=== PATIENT | female | born 1950 | race Caucasian/White ===

== ENCOUNTER 2017-08-20 16:04 | Observation (INO) | payer OTHER ==
--- OUTSIDE RECORDS SUMMARY | 2017-08-20 16:06 | XMS REPORT | Clinical Summary ---
:1950 Author Organization [facility] Address [address] [place] [address] Care Team Providers Name Role Phone Noé Jacobs MD Primary Care Provider Allergies Active Allergy Reactions Severity Noted Date Comments Lisinopril Other (See Comments) 04/24/2016 Kidney failure Current Medications Prescription Sig. Disp. Refills Start Date End Date Status digOXIN (LANOXIN) 125 mcg Take 125 mcg by Active tablet mouth daily. rivaroxaban (XARELTO) 20 Take 20 mg by mouth Active mg tablet daily. carvedilol CR (COREG CR) Take 10 mg by mouth Active 10 MG 24 hr capsule daily. potassium chloride Take 10 mEq by Active (K-DUR,KLOR-CON) 10 MEQ mouth daily. CR tablet cholecalciferol, vitamin Take 50,000 Units Active D3, (VITAMIN D3) 2,000 by mouth once a unit capsule capsule week. allopurinol (ZYLOPRIM) Take 300 mg by Active 300 MG tablet mouth daily. levothyroxine (SYNTHROID, Take 50 mcg by Active LEVOXYL) 50 mcg tablet mouth every morning. pravastatin (PRAVACHOL) Take 40 mg by mouth Active 40 MG tablet daily. citalopram (CeleXA) 40 MG Take 40 mg by mouth Active tablet daily. linagliptin (TRADJENTA) 5 Take 5 mg by mouth Active mg tablet daily. traZODone (DESYREL) 50 MG Take 50 mg by mouth Active tablet nightly. hydromorPHONE (DILAUDID) Take 4 mg by mouth Active 4 MG tablet every 4 (four) hours as needed for moderate pain. furosemide (LASIX) 40 mg Take 40 mg by mouth Active tablet 2 (two) times a day. clonAZEPAM (KlonoPIN) 0.5 Take 0.5 mg by Active MG tablet mouth 3 (three) times a day as needed for seizures. magnesium oxide (MAG-OX) Take 400 mg by Active 400 mg tablet mouth daily. omeprazole (PriLOSEC) 20 Take 20 mg by mouth Active MG capsule daily. Active Problems Not on file Family History Medical History Relation Name Comments Coronary artery disease Father Coronary artery disease Mother Thyroid disease Sister Relation Name Status Comments Father Mother Sister Social History Tobacco Use Types Packs/Day Years Used Date Never Smoker Tobacco Cessation: Counseling Given: No Alcohol Use Drinks/Week oz/Week Comments No Sex Assigned at Date Recorded Not on file Last Filed Vital Signs Not on file Plan of Treatment Not on file Implants Implanted Type Area Steeping Press Operator Device Expiration Model / Identifier Date Serial / Lot Envlp Impl Crdvrtr Dfb Antbctrl Fully Resorb Lg Aigissrx R - [id number] Cardiovascular N/A: [employer] [id number] / Implanted: 04/24/2016 (Quantity not on file) Implants N/A / Visia Af Vr Device - [id number] CARDIAC DEFIB N/A: [employer] [id number] / Implanted: Qty: 1 on 04/24/2016 by Joss Solano Jr., MD N/A [employer] / Results Not on fileafter 08/19/2016 Insurance Payer Benefit Plan / Group Subscriber ID Type Phone Address MEDICARE MEDICARE PART A AND B xxxxxxxxxx Medicare [place], [place] Home: [address] [phone] [address]
[2017-08-20] MEDS ORDERED: NITROGLYCERIN 0.4 MG/TAB SL ONE (19:51)
[2017-08-20] MEDS ORDERED: ASPIRIN 81 MG CHEWABLE TABLET ONE (19:51)
--- NOTE | 2017-08-20 20:03 | RAD REPORT ---
EXAM DESCRIPTION: RAD - Chest Single View - 08/20/2017 7:55 pm CLINICAL HISTORY: CHEST PAIN Chest pain. COMPARISON: Chest Pa And Lat (2 Views) dated 01/20/2017; Chest Single View dated 12/18/2015; Chest P a And Lat (2 Views) dated 11/24/2015; Chest Single View dated 11/23/2015 FINDINGS: Portable technique limits examination quality. Mild interstitial pulmonary edema noted. The heart is mildly enlarged in size with pacer/defibrillato r in place. No displaced fractures.Right-sided venous catheter tip in the SVC. IMPRESSION: Mild CHF/ volume overload pattern.
[2017-08-20 20:28] LABS: Absolute Lymphocytes (CBC) 1.9 K/uL (0.7-4.9); Absolute Monocytes 0.5 K/uL (0.1-1.3); Absolute Neutrophil 6.2 K/uL (1.8-8.0); Basophils % 0.6 % (0-1.3); Eosinophils % 1.3 % (0-4.4); Hematocrit 41.1 % (36.0-45.0); Lymphocytes % 22.1 % (15.3-44.8); MCH 29.9 pg (27.0-35.0); MCV 88.7 fL (80-100); MPV 8.8 fL (7.6-11.3); Monocytes % 5.5 % (3.3-12.3); RBC Red Blood Cell Count 4.63 M/uL (3.86-4.86)
[2017-08-20 20:31] LABS: Protime INR 1.06
[2017-08-20 20:40] LABS: Potassium 3.7 mEq/L (3.6-5.0)
[2017-08-20] MEDS ORDERED: ONDANSETRON 4 MG/2 ML VIAL ONE (20:43)
[2017-08-20] MEDS ORDERED: MORPHINE 4 MG/ML SYR ONE ×2 (20:43→23:51)
[2017-08-20 20:46] LABS: Albumin 4.3 g/dL (3.2-5.5); Bilirubin Direct 0.1 mg/dL (0-0.2); Bilirubin Total 0.5 mg/dL (0.3-1.2); Protein, Total 7.4 g/dL (6.0-8.3)
--- NOTE | 2017-08-20 21:27 | RAD REPORT ---
EXAM DESCRIPTION: CT - Chest For Pe Angio - 08/20/2017 9:17 pm CLINICAL HISTORY: Chest pain. CHEST PAIN COMPARISON: Chest For Pe Angio dated 11/23/2015; Abdomen Pelvis W Contrast dated 06/01/2017; Abdomen Pelvis W Contrast dated 09/08/2015; Chest Single View dated 08/20/2017 TECHNIQUE: CT angiogram of the pulmonary arteries was performed with MIP. All CT scans are performed using dose optimization technique as appropriate and may include automated exposure control or mA/KV adjustment according to patient size. FINDINGS: No evidence of pulmonary thromboembolism. Moderate cardiomegaly is seen. Pacemaker wires a re noted. No acute aortic finding demonstrated. Small amount pericardial fluid suspected. Mild bilateral pulmonary edema is suspected. No significant pleural effusions seen. No concerning bony finding. Fatty liver. IMPRESSION: No evidence of pulmonary thromboembolism. Mild CHF versus volume overload pattern. Cardiomegaly.
--- NOTE | 2017-08-20 22:28 | ER ---
Nurse's Notes [facility] Name: Pretty Sahni Age: 66 yrs Sex: Female : 1950 Arrival Date: 08/20/2017 Time: 16:07 Bed 28 Private MD: Noé Jacobs Diagnosis: Acute chest pain;acute pulmonary edema Presentation: 08/20 16:33 Presenting complaint: Patient states: left-sided chest pain radiating to left lateral aa5 aspect of chest and left scapula x 2 days ago. Pt also reports SOB. Transition of care: patient was not received from another setting of care. Onset of symptoms was August 18, 2017. Risk Assessment: Do you want to hurt yourself or someone else? Patient reports no desire to harm self or others. Initial Sepsis Screen: Does the patient meet any 2 criteria? No. Patient's initial sepsis screen is negative. Does the patient have a suspected source of infection? No. Patient's initial sepsis screen is negative. Care prior to arrival: None. 16:33 Method Of Arrival: Ambulatory aa5 16:33 Acuity: MARK 3 aa5 Historical: - Allergies: 16:35 Doni; aa5 - PMHx: 16:35 Anxiety; CHF; COPD; Depression; Diabetes - NIDDM; Gout; Hypothyroidism; aa5 - PSHx: 16:35 heart cath; defibrillator; Tonsillectomy; Adenoids; Tubal ligation; Hysterectomy; aa5 - Immunization history:: Pneumococcal vaccine is up to date. - Social history:: Smoking status: Patient/guardian denies using tobacco. - Ebola Screening: : No symptoms or risks identified at this time. - Family history:: pertinent for diabetes, hypertension. - Hospitalizations: : No recent hospitalization is reported. Screenin:00 Nutritional screening: No deficits noted. Tuberculosis screening: No symptoms or risk kr2 factors identified. Fall Risk None identified. 21:49 Abuse screen: Denies threats or abuse. Denies injuries from another. kr2 Assessment: 19:00 General: Appears in no apparent distress. comfortable, well groomed, well developed, kr2 well nourished, Behavior is calm, cooperative, appropriate for age. Pain: Complains of pain in left breast Pain does not radiate. Pain currently is 10 out of 10 on a pain scale. Quality of pain is described as pressure, sharp, Pain began 2-3 days ago. Is continuous, Alleviated by medications, rest, Aggravated by increased activity, Noted to be grimacing. Neuro: Level of Consciousness is awake, alert, obeys commands, Oriented to person, place, time, situation, Appropriate for age. Cardiovascular: Capillary refill < 3 seconds in bilateral fingers Patient's skin is warm and dry. Respiratory: Airway is patent Respiratory effort is even, unlabored, Respiratory pattern is regular, symmetrical. GI: Abdomen is flat, non-distended. : Denies burning with urination. EENT: Oral mucosa is moist. Derm: Skin is intact, is healthy with good turgor, Skin is pink, warm \T\ dry. Musculoskeletal: Circulation, motion, and sensation intact. 20:00 Reassessment: Patient appears in no apparent distress at this time. Patient and/or kr2 family updated on plan of care and expected duration. Pain level reassessed. Patient is alert, oriented x 3, equal unlabored respirations, skin warm/dry/pink. 21:00 Reassessment: Patient appears in no apparent distress at this time. Patient and/or kr2 family updated on plan of care and expected duration. Pain level reassessed. Patient is alert, oriented x 3, equal unlabored respirations, skin warm/dry/pink. Patient denies pain at this time. Patient states feeling better. Patient states symptoms have improved. 21:56 Reassessment: Patient appears in no apparent distress at this time. Patient and/or kr2 family updated on plan of care and expected duration. Pain level reassessed. Patient is alert, oriented x 3, equal unlabored respirations, skin warm/dry/pink. Patient states feeling better. Patient states symptoms have improved. 22:29 Reassessment: Patient appears in no apparent distress at this time. Patient and/or kr2 family updated on plan of care and expected duration. Pain level reassessed. Patient is alert, oriented x 3, equal unlabored respirations, skin warm/dry/pink. Patient states feeling better. 23:50 Reassessment: Patient complains of pain returning to chest. Provider notified. See kr2 orders. 08/21 00:05 Reassessment: Patient appears in no apparent distress at this time. Patient and/or kr2 family updated on plan of care and expected duration. Pain level reassessed. Patient is alert, oriented x 3, equal unlabored respirations, skin warm/dry/pink. Patient states feeling better. Vital Signs: 08/20 16:36 BP 97 / 55; Pulse 84; Resp 16 S; Temp 98.7; Pulse Ox 95% on R/A; Weight 90.72 kg (R); aa5 Height 5 ft. 2 in. (157.48 cm) (R); Pain 7/10; 19:00 BP 117 / 80; Pulse 73; Resp 16; Pulse Ox 99% on R/A; kr2 20:00 BP 130 / 58; Pulse 70; Resp 18; Pulse Ox 100% ; kr2 21:56 BP 113 / 65; Pulse 73; Resp 16; Pulse Ox 100% ; kr2 22:30 BP 112 / 67; Pulse 75; Resp 16; Pulse Ox 100% ; kr2 23:50 BP 119 / 65; Pulse 74; Resp 19; Pulse Ox 98% on R/A; kr2 23:50 BP 102 / 48; Pulse 77; Resp 16; Pulse Ox 99% on R/A; kr2 16:36 Body Mass Index 36.58 (90.72 kg, 157.48 cm) aa5 ED Course: 16:07 Patient arrived in ED. sb2 16:07 Noé Jacobs MD is Private Physician. sb2 16:34 Triage completed. aa5 16:34 Arm band placed on. aa5 16:35 EKG completed in triage. Results shown to MD. aa5 19:00 Sahra Camejo RN is Primary Nurse. kr2 19:00 Patient has correct armband on for positive identification. personnel monitor on. Pulse kr2 ox on. NIBP on. 19:20 Richard Christian MD is Attending Physician. wa 19:30 Missed attempt(s): 22 gauge in left antecubital area. Bleeding controlled, band aid kr2 applied, catheter tip intact. 19:55 XRAY Chest (1 view) In Process Unspecified. EDMS 20:00 Inserted saline lock: 22 gauge in right antecubital area, using aseptic technique. kr2 performed by ELIUD Dickey. 20:04 Radiology exam delayed due to lab results not completed at this time. (BUN/Creatinine). vr 21:17 CT completed. Patient tolerated procedure well. Patient moved back from CT. vr 21:17 CT Chest For PE Angio In Process Unspecified. EDMS 21:49 Patient maintains SpO2 saturation greater than 95% on room air. kr2 22:26 Lily Esparza MD is Hospitalizing Provider. de 08/21 00:07 No provider procedures requiring assistance completed. Patient admitted, IV remains in kr2 place. Administered Medications: 08/20 20:02 Drug: Nitroglycerin 0.4 mg Route: Sublingual; kr2 20:10 Follow up: Response: No adverse reaction; Pain is decreased kr2 20:03 Drug: Aspirin Chewable Tablet 324 mg Route: PO; kr2 23:36 Follow up: Response: No adverse reaction kr2 20:45 Drug: Zofran 4 mg Route: IVP; Site: right antecubital; kr2 21:59 Follow up: Response: No adverse reaction kr2 20:45 Drug: morphine 2 mg Route: IVP; Site: right antecubital; kr2 21:00 Follow up: Response: No adverse reaction; Pain is decreased kr2 20:45 Drug: Nitroglycerin 0.4 mg Route: Sublingual; kr2 20:50 Follow up: Response: No adverse reaction; Pain is decreased kr2 23:55 Drug: Nitroglycerin 0.4 mg Route: Sublingual; kr2 08/21 00:05 Follow up: Response: No adverse reaction; Pain is decreased kr2 00:00 Drug: morphine 2 mg Route: IVP; Site: right antecubital; kr2 00:05 Follow up: Response: No adverse reaction kr2 Outcome: 08/20 22:27 Decision to Hospitalize by Provider. de 08/21 00:07 Admitted to Tele accompanied by tech, via wheelchair, room 230, with chart, Report kr2 called to nurse Vital Condition: stable Instructed on the need for admit, Demonstrated understanding of instructions. 00:09 Patient left the ED. kr2 Signatures: Dispatcher [employer] EDMS Ana María Nguyen RN RN Shonda Hernandez William, MD MD wa Reaves, Karey, RN RN kr2 Cami Connors sb2 Corrections: (The following items were deleted from the chart) 08/20 22:32 21:56 Pulse 73bpm; Resp 16bpm; Pulse Ox 100%; kr2 kr2 08/21 00:08 00:07 Condition: good kr2 kr2
--- NOTE | 2017-08-20 22:28 | EDPHYS ---
Physician Documentation [facility] Name: Pretty Sahni Age: 66 yrs Sex: Female : 1950 Arrival Date: 08/20/2017 Time: 16:07 Bed 28 Private MD: Noé Jacobs ED Physician Richard Christian HPI: 08/20 22:06 This 66 yrs old Female presents to ER via Ambulatory with complaints of Chest wa Pain > 30 y/o. 22:06 The patient or guardian reports chest pain that is located primarily in the substernal wa area. Onset: 2 day(s) ago. The pain radiates to the left arm, left neck. Associated signs and symptoms: Pertinent positives: nausea, shortness of breath, Pertinent negatives: near syncope, palpitations. The chest pain is described as a pressure. Duration: The patient or guardian reports a single episode, that is still ongoing, and worsening. Modifying factors: The symptoms are alleviated by nothing. the symptoms are aggravated by nothing. Severity of pain: At its worst the pain was moderate in the emergency department the pain is actually worse. The patient has experienced similar episodes in the past, a few times. The patient has not recently seen a physician, the patient's primary care provider is Dr. Loera. shipyard painter apprentice Dr. Sanders. Historical: - Allergies: 16:35 Doni; aa5 - PMHx: 16:35 Anxiety; CHF; COPD; Depression; Diabetes - NIDDM; Gout; Hypothyroidism; aa5 - PSHx: 16:35 heart cath; defibrillator; Tonsillectomy; Adenoids; Tubal ligation; Hysterectomy; aa5 - Immunization history:: Pneumococcal vaccine is up to date. - Social history:: Smoking status: Patient/guardian denies using tobacco. - Ebola Screening: : No symptoms or risks identified at this time. - Family history:: pertinent for diabetes, hypertension. - Hospitalizations: : No recent hospitalization is reported. ROS: 22:12 Constitutional: Negative for fever, chills, and weight loss, Eyes: Negative for injury, wa pain, redness, and discharge, ENT: Negative for injury, pain, and discharge, Neck: Negative for injury, pain, and swelling, Abdomen/GI: Negative for abdominal pain, nausea, vomiting, diarrhea, and constipation, Back: Negative for injury and pain, : Negative for injury, bleeding, discharge, and swelling, MS/Extremity: Negative for injury and deformity, Skin: Negative for injury, rash, and discoloration, Neuro: Negative for headache, weakness, numbness, tingling, and seizure, Psych: Negative for depression, anxiety, suicide ideation, homicidal ideation, and hallucinations. 22:12 Cardiovascular: Positive for chest pain, Negative for edema, orthopnea, palpitations, paroxysmal nocturnal dyspnea. 22:12 Respiratory: Positive for shortness of breath, Negative for cough, wheezing. Exam: 22:13 Head/Face: Normocephalic, atraumatic. Eyes: Pupils equal round and reactive to light, wa extra-ocular motions intact. Lids and lashes normal. Conjunctiva and sclera are non-icteric and not injected. Cornea within normal limits. Periorbital areas with no swelling, redness, or edema. ENT: Nares patent. No nasal discharge, no septal abnormalities noted. Tympanic membranes are normal and external auditory canals are clear. Oropharynx with no redness, swelling, or masses, exudates, or evidence of obstruction, uvula midline. Mucous membranes moist. Neck: Trachea midline, no thyromegaly or masses palpated, and no cervical lymphadenopathy. Supple, full range of motion without nuchal rigidity, or vertebral point tenderness. No Meningismus. Chest/axilla: Normal chest wall appearance and motion. Nontender with no deformity. No lesions are appreciated. Cardiovascular: Regular rate and rhythm with a normal S1 and S2. No gallops, murmurs, or rubs. Normal PMI, no JVD. No pulse deficits. Abdomen/GI: Soft, non-tender, with normal bowel sounds. No distension or tympany. No guarding or rebound. No evidence of tenderness throughout. Back: No spinal tenderness. No costovertebral tenderness. Full range of motion. Skin: Warm, dry with normal turgor. Normal color with no rashes, no lesions, and no evidence of cellulitis. Neuro: Awake and alert, GCS 15, oriented to person, place, time, and situation. Cranial nerves II-XII grossly intact. Motor strength 5/5 in all extremities. Sensory grossly intact. Cerebellar exam normal. Normal gait. Psych: Awake, alert, with orientation to person, place and time. Behavior, mood, and affect are within normal limits. 22:13 Constitutional: The patient appears alert, mild distress due to pain 22:13 Respiratory: Breath sounds: mildly coarse in both lower lung lobes. 22:13 Musculoskeletal/extremity: mild pedal edema noted. Vital Signs: 16:36 BP 97 / 55; Pulse 84; Resp 16 S; Temp 98.7; Pulse Ox 95% on R/A; Weight 90.72 kg (R); aa5 Height 5 ft. 2 in. (157.48 cm) (R); Pain 7/10; 19:00 BP 117 / 80; Pulse 73; Resp 16; Pulse Ox 99% on R/A; kr2 20:00 BP 130 / 58; Pulse 70; Resp 18; Pulse Ox 100% ; kr2 21:56 BP 113 / 65; Pulse 73; Resp 16; Pulse Ox 100% ; kr2 22:30 BP 112 / 67; Pulse 75; Resp 16; Pulse Ox 100% ; kr2 23:50 BP 119 / 65; Pulse 74; Resp 19; Pulse Ox 98% on R/A; kr2 23:50 BP 102 / 48; Pulse 77; Resp 16; Pulse Ox 99% on R/A; kr2 16:36 Body Mass Index 36.58 (90.72 kg, 157.48 cm) aa5 MDM: 19:20 Patient medically screened. nm 22:15 Differential diagnosis: acute myocardial infarction, acute pericarditis, coronary wa artery disease congestive heart failure pleurisy, pneumonia, pulmonary embolus, thoracic aortic disection, unstable angina. 22:16 Data reviewed: vital signs, nurses notes, lab test result(s), EKG, radiologic studies. nm Test interpretation: by ED physician or midlevel provider: EKG: HR 82. non-specific ST-T changes. repeat 1 hr later unchanged from initial. . 22:17 Test interpretation: by ED physician or midlevel provider: . wa 22:22 Test interpretation: by ED physician or midlevel provider: labs noted wnl. nml trpn-I. nm 22:22 Test interpretation: by ED physician or midlevel provider: CXR: pulm edema. wa cardiomegaly. CT chest: no PE. pulm edema. cardiomegaly. Response to treatment: the patient's symptoms have markedly improved after treatment. Physician consultation: Lily Esparza MD. Admission orders: after a detailed discussion of the patient's condition and case, the admit orders are written by me. ED course: required frequent assessments due to on-going chest pain. ASA given. improved well with SL nitro and one dose of low dose morphine. 2200 hrs: chest pain free. SOB improved. needs r/o unstable angina. aucte pulm edema. 22:27 ED course: pt already on eloquis. 08/20 19:36 Order name: Basic Metabolic Panel; Complete Time: 22:02 08/20 19:36 Order name: BNP; Complete Time: 22:08/20 19:36 Order name: CBC with Diff; Complete Time: 22:08/20 19:36 Order name: LFT's; Complete Time: 22:08/20 19:36 Order name: Magnesium; Complete Time: 22:08/20 19:36 Order name: PT-INR; Complete Time: 22:08/20 19:36 Order name: Ptt, Activated; Complete Time: 22:08/20 19:36 Order name: Troponin (emerg Dept Use Only); Complete Time: 22:08/20 19:36 Order name: XRAY Chest (1 view); Complete Time: 22:08/20 19:37 Order name: CT Chest For PE Angio; Complete Time: 22:08/20 17:28 Order name: EKG Electrocardiogram; Complete Time: 21:40 [facility] 08/20 19:35 Order name: EKG - Nurse/Tech; Complete Time: 20:24 08/20 19:36 Order name: EKG; Complete Time: 19:36 nm 08/20 19:36 Order name: Cardiac monitoring; Complete Time: 20:03 08/20 19:36 Order name: EKG - Nurse/Tech; Complete Time: 20:03 08/20 19:36 Order name: IV Saline Lock; Complete Time: 20:08/20 19:36 Order name: Labs collected and sent; Complete Time: 20:08/20 19:36 Order name: O2 Per Protocol; Complete Time: 20:03 08/20 19:36 Order name: O2 Sat Monitoring; Complete Time: 20:03 08/20 23:49 Order name: EKG; Complete Time: 23:49 08/20 23:49 Order name: EKG - Nurse/Tech; Complete Time: 00:04 nm Administered Medications: 20:02 Drug: Nitroglycerin 0.4 mg Route: Sublingual; kr2 20:10 Follow up: Response: No adverse reaction; Pain is decreased kr2 20:03 Drug: Aspirin Chewable Tablet 324 mg Route: PO; kr2 23:36 Follow up: Response: No adverse reaction kr2 20:45 Drug: Zofran 4 mg Route: IVP; Site: right antecubital; kr2 21:59 Follow up: Response: No adverse reaction kr2 20:45 Drug: morphine 2 mg Route: IVP; Site: right antecubital; kr2 21:00 Follow up: Response: No adverse reaction; Pain is decreased kr2 20:45 Drug: Nitroglycerin 0.4 mg Route: Sublingual; kr2 20:50 Follow up: Response: No adverse reaction; Pain is decreased kr2 23:55 Drug: Nitroglycerin 0.4 mg Route: Sublingual; kr2 08/21 00:05 Follow up: Response: No adverse reaction; Pain is decreased kr2 00:00 Drug: morphine 2 mg Route: IVP; Site: right antecubital; kr2 00:05 Follow up: Response: No adverse reaction kr2 Disposition: 08/20 22:25 Critical Care:. nm Disposition: 08/20/17 22:27 Hospitalization ordered by Lily Esparza for Inpatient Admission. Preliminary diagnosis are Acute chest pain, acute pulmonary edema. - Bed requested for Telemetry/MedSurg (Inpatient). - Status is Inpatient Admission. kr2 - Condition is Stable. - Problem is new. - Symptoms have improved. UTI on Admission? No Critical care time excluding procedures: 22:25 Critical care time: Bedside Care: 20 minutes, Consultation: 10 minutes. Total time: 30 wa minutes Signatures: Dispatcher [employer] Marily Perez RN RN kl Chretien, Felicia, RN RN fc Calderon, Audri, RN RN aa5 Richard Christian MD MD nm Sahra Camejo RN RN kr2 Valeria Santiago Corrections: (The following items were deleted from the chart) 21:40 19:39 Misc. Order ordered. nm kr2 22:29 22:27 Hospitalization Ordered by Lily Esparza MD for Inpatient Admission. Preliminary eb diagnosis is Acute chest pain; acute pulmonary edema. Bed requested for Telemetry/MedSurg (Inpatient). Status is Inpatient Admission. Condition is Stable. Problem is new. Symptoms have improved. UTI on Admission? No. wa 23:29 22:29 08/20/2017 22:27 Hospitalization Ordered by Lily Esparza MD for Inpatient kl Admission. Preliminary diagnosis is Acute chest pain; acute pulmonary edema. Bed requested for Telemetry/MedSurg (Inpatient). Status is Inpatient Admission. Condition is Stable. Problem is new. Symptoms have improved. UTI on Admission? No. eb 08/21 00:09 08/20 23:29 08/20/2017 22:27 Hospitalization Ordered by Lily Esparza MD for Inpatient kr2 Admission. Preliminary diagnosis is Acute chest pain; acute pulmonary edema. Bed requested for Telemetry/MedSurg (Inpatient). Status is Inpatient Admission. Condition is Stable. Problem is new. Symptoms have improved. UTI on Admission? No. kl
--- NOTE | 2017-08-20 23:08 | P.HP ---
Certification for Inpatient Patient admitted to: Inpatient With expected LOS: >2 Midnights Practitioner: I am a practitioner with admitting privileges, knowledge of patient current condition, hospital course, and medical plan of care. Services: Services provided to patient in accordance with Admission requirements found in Title 42 Section 412.3 of the Code of Federal Regulations Patient History Date of Service: 08/20/17 Reason for admission: chest pain, CHF History of Present Illness: Ms Sahni is a 66 years old woman with multiple medical problems including, Chronic systolic CHF, COPD, HTN, DM II, ICD placement, who came to ED complaining of chest pain. The pain is sbusternal, pressure like, on and off, getting worse with breathing movements, associated with SOB. Intensity was 8/10 , after received 2 NTG sl, the pain decreased to 3/10. She denied any fever or chills. No nausea or diaphoresis associated with. Previous cardiac work up in 2016 ECHO showed EF 32%, cath remarkable for normal RCA and circunflex, but mild plaques at LAD. Initial Trop I is negative, EKG shows normal SR with non- specific ST-T abnormalities. Allergies simvastatin [From Zocor] Adverse Reaction (Verified 12/09/15 09:54) swelling Doni Allergy (Uncoded 12/18/15 23:46) Unknown Home Medications: Citalopram [Celexa*] 40 mg PO DAILY 09/09/15 Hydrocodone/Acetaminophen [Hydrocodone-Acetamin 7.5-325] 1 each PO BID 09/09/15 Levothyroxine [Synthroid*] 50 mcg PO [id number] 09/09/15 Pravastatin Sodium 40 mg PO BEDTIME 09/09/15 Clonazapate 7.5 mg PO BID 11/16/15 Linagliptin/Metformin HCl [Jentadueto 2.5 mg-1000 mg Tab] 1 tab PO BID 11/16/15 Trazodone HCl [Desyrel] 50 mg PO BEDTIME 11/16/15 Digoxin [Lanoxin] 0.25 mg PO DAILY #30 tablet 11/19/15 Furosemide [Lasix] 40 mg PO DAILY #30 tab 11/19/15 Omeprazole 20 mg PO DAILY #30 tablet. 11/25/15 Rivaroxaban [Xarelto] 20 mg PO DAILY #30 tablet 11/25/15 - Past Medical/Surgical History Diabetic: Yes -: NIDDM -: Gout -: Anxiety -: Depression -: Hypothyroidism -: COPD -: CHF -: Hysterectomy -: T&A -: Tubal ligation -: Tawnya-cath -: Defibrillator - Family History Family History: Reviewed- Non-Contributory - Social History Smoking Status: Never smoker Alcohol use: No CD- Drugs: Yes Caffeine use: Yes Place of Residence: Home Review of Systems 10-point ROS is otherwise unremarkable Physical Examination - Physical Exam General: Alert, In no apparent distress HEENT: Atraumatic, PERRLA, Mucous membr. moist/pink, EOMI, Sclerae nonicteric Neck: Supple, 2+ carotid pulse no bruit, No LAD, Without JVD or thyroid abnormality Respiratory: Normal air movement, Crackles/rales (bibasilar crackles) Cardiovascular: Regular rate/rhythm, Normal S1 S2 Gastrointestinal: Normal bowel sounds, No tenderness Musculoskeletal: No tenderness Integumentary: No rashes Neurological: Normal speech, Normal strength at 5/5 x4 extr, Normal tone, Normal affect Lymphatics: No axilla or inguinal lymphadenopathy - Studies Laboratory Data (last 24 hrs) 08/20/17 20:00: PT 12.5, INR 1.06, APTT 36.4 08/20/17 20:00: WBC 8.7, Hgb 13.8, Hct 41.1, Plt Count 169 08/20/17 20:00: B-Natriuretic Peptide 128 H 08/20/17 20:00: Sodium 136, Potassium 3.7, BUN 17, Creatinine 0.85, Glucose 100 , Magnesium 2.0, Total Bilirubin 0.5, AST 24, ALT 21, Alkaline Phosphatase 137 H Assessment and Plan - Problems (Diagnosis) (1) Acute on chronic systolic (congestive) heart failure Current Visit: Yes Status: Acute (2) Chest pain Onset Date: 11/18/15 Current Visit: No Status: Acute Qualifiers: Chest pain type: chest pain on breathing Qualified Code(s): R07.1 - Chest pain on breathing; R07.81 - Pleurodynia (3) Diabetes Onset Date: 09/10/15 Current Visit: No Status: Acute Qualifiers: Diabetes mellitus type: type 2 Diabetes mellitus [facility] insulin use: without intermodal owner operator truck driver use Diabetes mellitus complication status: with unspecified complications Qualified Code(s): E11.8 - Type 2 diabetes mellitus with unspecified complications (4) HTN (hypertension) Onset Date: 11/25/15 Current Visit: No Status: Acute Qualifiers: Hypertension type: essential hypertension Qualified Code(s): I10 - Essential (primary) hypertension - Plan The patient will be admitted to the hospital due to chest pain and acute exacerbation of systolic CHF. Initial Trop I is negative, EKG non-specific ST-T abnormalities. Will order serial trop I, EKG. Start IV lasix, ASA, resume statins. Consult Cardiology team. - Advance Directives Does patient have a Living Will: No Does patient have a Durable POA for Healthcare: No - Code Status/Comfort Care Code Status Assessed: Yes Code Status: Full Code
[2017-08-20] MEDS ORDERED: IPRATROPIUM BROM 0.5MG/2.5ML NEB PRN (23:14)
[2017-08-20] MEDS ORDERED: ALBUTEROL 2.5 MG/3 ML NEB SOL NEB PRN (23:14)
[2017-08-20] MEDS ORDERED: ONDANSETRON 4 MG/2 ML VIAL IV PRN (23:14)
[2017-08-21] MEDS ORDERED: MORPHINE 4 MG/ML SYR ONE (03:38)
[2017-08-21] MEDS ORDERED: Morphine 2 MG/2 ML SYR IV ONE (04:00)
[2017-08-21 05:25] LABS: Absolute Lymphocytes (CBC) 2.4 K/uL (0.7-4.9); Absolute Monocytes 0.5 K/uL (0.1-1.3); Absolute Neutrophil 4.7 K/uL (1.8-8.0); Basophils % 0.4 % (0-1.3); Hematocrit 35.6 % (36.0-45.0); Lymphocytes % 31.5 % (15.3-44.8); MCV 88.7 fL (80-100); MPV 8.5 fL (7.6-11.3); Monocytes % 6.1 % (3.3-12.3); RBC Red Blood Cell Count 4.01 M/uL (3.86-4.86)
[2017-08-21 05:37] LABS: Potassium 3.6 mEq/L (3.6-5.0)
--- NOTE | 2017-08-21 06:15 | EKG ---
Test Date: 2017-08-20 Test Time: 16:36:46 Food Service Team Member: JEFFRY MEASUREMENT RESULTS: Intervals: Rate: 82 IA: 154 QRSD: 102 QT: 396 QTc: 462 [place]: P: 55 IA: 154 QRS: 6 T: 24 INTERPRETIVE STATEMENTS: Normal sinus rhythm Moderate voltage criteria for LVH, may be normal variant Nonspecific ST and T wave abnormality Abnormal ECG Compared to ECG 12/18/2015 21:01:18 Left ventricular hypertrophy now present Atrial fibrillation no longer present Possible ischemia no longer present ST (T wave) deviation still present Electronically Signed On 08-21-17 06:15:06 CDT by Larry Cowan
[2017-08-21] MEDS: INSULIN -REGULAR HUMAN 50 UNIT/0.5 ML ML SQ SCH ×4 (07:30→20:56)
[2017-08-21] MEDS ORDERED: FUROSEMIDE 40 MG/4 ML VIAL IV ONE ×2 (08:20→16:00)
[2017-08-21] MEDS: RIVAROXABAN 20 MG TABLET PO SCH (08:41)
[2017-08-21] MEDS ORDERED: FUROSEMIDE 40 MG/4 ML VIAL IV SCH (09:00)
[2017-08-21] MEDS: ALLOPURINOL 100 MG TAB PO SCH (10:29)
[2017-08-21] MEDS: SACUBITRIL/VALSARTAN 24/26 MG TAB PO SCH ×2 (10:29→20:48)
[2017-08-21] MEDS: CITALOPRAM 10 MG TABLET PO SCH (10:29)
[2017-08-21] MEDS: LEVOTHYROXINE SOD 0.05 MG TABLET PO SCH (10:29)
[2017-08-21] MEDS: CARVEDILOL 6.25 MG TAB PO SCH ×2 (10:29→20:48)
--- NOTE | 2017-08-21 12:07 | P.PN ---
Subjective Date of Service: 08/21/17 Chief Complaint: chest pain, CHF Pt seen and examined at bedside with RN. Case DW with cardiology. Currently Pt is doing better. C/o Pain in the back and Legs. Feels better than before. Review of Systems General: As per HPI Physical Examination - Vital Signs Temperature: 97.5 F Blood Pressure: 108/58 Pulse: 86 Respirations: 20 Pulse Ox (%): 94 - Physical Exam General: Alert, In no apparent distress, Mild distress, Obese HEENT: Atraumatic Neck: Supple, JVD not distended Respiratory: Normal air movement, Crackles/rales Cardiovascular: Regular rate/rhythm, Normal S1 S2, Edema Gastrointestinal: Normal bowel sounds, Soft and benign, Non-distended, No tenderness Musculoskeletal: Swelling (2+ Edema BL UE and LE) Integumentary: No rashes Neurological: Normal speech, Normal tone, Normal affect Lymphatics: No axilla or inguinal lymphadenopathy - Studies Laboratory Data (last 24 hrs) 08/20/17 20:00: PT 12.5, INR 1.06, APTT 36.4 08/20/17 20:00: WBC 8.7, Hgb 13.8, Hct 41.1, Plt Count 169 08/20/17 20:00: B-Natriuretic Peptide 128 H 08/20/17 20:00: Sodium 136, Potassium 3.7, BUN 17, Creatinine 0.85, Glucose 100 , Magnesium 2.0, Total Bilirubin 0.5, AST 24, ALT 21, Alkaline Phosphatase 137 H Medications List Reviewed: Yes Assessment & Plan - Problems (Diagnosis) (1) Acute on chronic systolic (congestive) heart failure Current Visit: Yes Status: Acute Plan: acute on chronic CHF exacerbation - Currently started on BB, Lasix and entresto - Recent ECHO per pt in the cardiology office with EF of 40% and Dilated Cardiomyopathy -Cardiology consulted. Reccs Appreciated -Pt did have kidney injury in the past with lisinopril. Will observe closely after started on Entresto today. 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
--- NOTE | 2017-08-21 13:13 | CON ---
Ms. Sahni is 66. She came to the hospital because of pain and shortness of breath. Recently, s he has been gaining weight. It seems that she is not taking all of the ideal medicines for congestiv e heart failure, and she may have been eating more sodium than usual. She was hurting mostly in the left breast since being in the hospital, DE was ruled out. Ms. Sahni has a nonischemic cardiomy opathy. A cardiac cath in December 2015 showed mild coronary plaque. No significant CAD. EF in the 30s. Echocardiograms likewise have showed ejection fraction in the 30s. As an outpatient, she takes Lasix and Coreg and for some reason has not been on an GARRETT inhibitor, angiotensin receptor evangelist o r Entresto, not sure why, I believe she has been placed on those and for 1 reason or another gets off the records on that are not clear. 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 She has a poor memory for things. She has underlying diabetes, obesity, depression, gout, degenerative joint disease, hypo thyroidism, dyslipidemia, intermittent AFib. Outpatient Medications: Allopurinol, Celexa, clorazepate, Coreg, digoxin, Jentadueto, Lasix, levothy roxine, metolazone, pravastatin, Neurontin, and Xarelto. Social History: She does not use tobacco or alcohol or illegal drugs. Physical Examination: Vital Signs: 5 feet 2 inches, 213 pounds. General: Obese, mild distress. She has orthopnea. Lungs: Reveal basilar crackles. Heart: Does not reveal a significant murmur. There is an S4 or gallop. Regular rate and rhythm. Abdomen: Soft. Extremities: Reveal 2+ edema. Chest x-ray and CT of the chest indicate pulmonary edema. Impression: The patient has heart failure out of control. She seems to be unable to keep sodium int azael low. She says she is compliant with medicines. I think we should try again to add either Entres to or an angiotensin receptor evangelist. Continue beta evangelist, digoxin and Lasix. We need to increas e the Lasix, given IV. Presently, she is probably not absorbing oral Lasix very well, and we will se e if we can diurese her, get her feeling better and re-establish equilibrium for her heart failure. Thank you very much for your kind referral of Ms. Sahni. I will follow her with you. SH/MODL Voice ID: [id number] Report ID: [id number]
--- NOTE | 2017-08-21 13:43 | EKG ---
Test Date: 2017-08-20 Test Time: 23:53:26 Head Athletic Trainer/Strength Coach: IRIS MEASUREMENT RESULTS: Intervals: Rate: 64 SC: 176 QRSD: 106 QT: 410 QTc: 422 [place]: P: 46 SC: 176 QRS: 19 T: 36 INTERPRETIVE STATEMENTS: Normal sinus rhythm Moderate voltage criteria for LVH, may be normal variant Nonspecific T wave abnormality Abnormal ECG Compared to ECG 08/20/2017 19:59:51 No significant changes Electronically Signed On 08-21-17 13:43:03 CDT by Larry Cowan
--- NOTE | 2017-08-21 13:44 | EKG ---
Test Date: 2017-08-20 Test Time: 19:59:51 Network Contractor: MEASUREMENT RESULTS: Intervals: Rate: 82 ID: [id number] QRSD: 100 QT: 366 QTc: 427 [facility]: P: 46 ID: [id number] QRS: 5 T: 52 INTERPRETIVE STATEMENTS: Normal sinus rhythm Moderate voltage criteria for LVH, may be normal variant Nonspecific T wave abnormality Abnormal ECG Compared to ECG 08/20/2017 16:36:46 T-wave abnormality now present ST (T wave) deviation no longer present Electronically Signed On 08-21-17 13:43:25 CDT by Larry Cowan
[2017-08-21] MEDS ORDERED: METFORMIN ER 500 MG TAB PO SCH (17:00)
[2017-08-21] MEDS: HYDROCODONE/APAP 7.5/325 MG TAB PO SCH (20:50)
[2017-08-21] MEDS ORDERED: ATORVASTATIN 10 MG TAB PO SCH (21:00)
[2017-08-22] MEDS: LEVOTHYROXINE SOD 0.05 MG TABLET PO SCH (06:21)
[2017-08-22 06:44] VITALS: BMI 38.2
[2017-08-22] MEDS: INSULIN -REGULAR HUMAN 50 UNIT/0.5 ML ML SQ SCH (07:30)
[2017-08-22 08:37] LABS: Urine Appearance CLEAR; Urine Bilirubin NEGATIVE (NEG); Urine Blood NEGATIVE (NEG); Urine Color YELLOW; Urine Glucose NEGATIVE (NEG); Urine Protein NEGATIVE (NEG); Urine Urobilinogen 0.2 mg/dL (0.2-1.0); Urine pH 7.5 (5.0-7.0)
[2017-08-22 08:40] LABS: Urine Microscopic Reflex ORDER UMIC
[2017-08-22 08:52] LABS: Urine Bacteria <20 /HPF (<20); Urine RBC <5 /HPF (NONE SEEN)
[2017-08-22 08:53] LABS: Urine Culture Reflex Order NOT NEEDED; Urine Mucus 1+ /HPF (NONE SEEN)
[2017-08-22 09:22] VITALS: O2SAT 95
[2017-08-22] MEDS: ALLOPURINOL 100 MG TAB PO SCH (10:19)
[2017-08-22] MEDS: CARVEDILOL 6.25 MG TAB PO SCH (10:19)
[2017-08-22] MEDS: RIVAROXABAN 20 MG TABLET PO SCH (10:19)
[2017-08-22] MEDS: SACUBITRIL/VALSARTAN 24/26 MG TAB PO SCH (10:19)
[2017-08-22] MEDS: CITALOPRAM 10 MG TABLET PO SCH (10:19)
[2017-08-22] MEDS: HYDROCODONE/APAP 7.5/325 MG TAB PO SCH (10:19)
[2017-08-22 12:03] VITALS: BP 109/55; TEMP 97.3
--- NOTE | 2017-08-22 12:30 | P.DS ---
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 Diabetes mellitus complication status: with unspecified complications Qualified Code(s): E11.8 - Type 2 diabetes mellitus with unspecified complications (4) Dyslipidemia Onset Date: 09/10/15 Current Visit: No Status: Chronic (5) HTN (hypertension) Onset Date: 11/25/15 Current Visit: No Status: Chronic Qualifiers: Hypertension type: essential hypertension Qualified Code(s): I10 - Essential (primary) hypertension (6) Obesity (BMI 30-39.9) Current Visit: Yes Status: Chronic Brief History of Present Illness: Ms Sahni is a 66 years old woman with multiple medical problems including, Chronic systolic CHF, COPD, HTN, DM II, ICD placement, who came to ED complaining of chest pain. The pain is sbusternal, pressure like, on and off, getting worse with breathing movements, associated with SOB. Intensity was 8/10 , after received 2 NTG sl, the pain decreased to 3/10. She denied any fever or chills. No nausea or diaphoresis associated with. Previous cardiac work up in 2016 ECHO showed EF 32%, cath remarkable for normal RCA and circunflex, but mild plaques at LAD. Initial Trop I is negative, EKG shows normal SR with non- specific ST-T abnormalities. Hospital Course: Overall During the hospital stay pt remained stable Admitted to the hospital for CHF exacerbation due to noncompliance with diet and medication. Restarted on Low Na diet with fluids restriction. Cardiology consulted. Reccs pt be started on Entresto and continue on BB, Digoxin and increased dose of lasix. Pt had marked improvement in her breathing and swelling and thus was discharged home under stable condition Pt was educated extensively on Pain medication abuse and taking them as prescribed only. Pt demonstrated understanding but states she need to go see a different Pain mgmt doc. Pt was again educated on SE of opiates and the need to ensure taking medication as prescribed. Pt was discharged home under stable condition and asked to f/u with Cardiology, PCP and pain mgmt doc in 1 to 2 weeks post discharge. Vital Signs/Physical Exam: Temp Pulse Resp BP Pulse Ox 97.3 F 83 20 109/55 L 99 08/22/17 12:00 08/22/17 12:00 08/22/17 12:00 08/22/17 12:00 08/22/17 12:00 General: Alert, In no apparent distress HEENT: Atraumatic, PERRLA, EOMI Neck: Supple, JVD not distended Respiratory: Clear to auscultation bilaterally, Normal air movement Cardiovascular: Regular rate/rhythm, Normal S1 S2 Gastrointestinal: Normal bowel sounds, No tenderness Musculoskeletal: No tenderness Integumentary: No rashes Neurological: Normal speech, Normal tone, Normal affect Lymphatics: No axilla or inguinal lymphadenopathy Laboratory Data at Discharge: WBC 7.7 K/uL (4.3-10.9) 08/21/17 04:49 Hgb 12.0 g/dL (12.0-15.0) 08/21/17 04:49 Hct 35.6 % (36.0-45.0) L 08/21/17 04:49 Plt Count 149 K/uL (152-406) L 08/21/17 04:49 PT 12.5 SECONDS (9.5-12.5) 08/20/17 20:00 INR 1.06 08/20/17 20:00 APTT 36.4 SECONDS (24.3-36.9) 08/20/17 20:00 Sodium 139 mEq/L (135-145) 08/21/17 04:49 Potassium 3.6 mEq/L (3.6-5.0) 08/21/17 04:49 BUN 16 mg/dL (6-20) 08/21/17 04:49 Creatinine 0.82 mg/dL (0.44-1.00) 08/21/17 04:49 Glucose 104 mg/dL (65-120) 08/21/17 04:49 Magnesium 2.0 mg/dL (1.8-2.5) 08/20/17 20:00 Total Bilirubin 0.5 mg/dL (0.3-1.2) 08/20/17 20:00 AST 24 IU/L (10-42) 08/20/17 20:00 ALT 21 IU/L (10-60) 08/20/17 20:00 Alkaline Phosphatase 137 IU/L (42-121) H 08/20/17 20:00 Troponin I < 0.03 ng/mL (<0.03) 08/21/17 15:14 B-Natriuretic Peptide 128 pg/ml (<=100) H 08/20/17 20:00 Home Medications: Citalopram [Celexa*] 40 mg PO DAILY 09/09/15 Hydrocodone/Acetaminophen [Hydrocodone-Acetamin 7.5-325] 1 each PO BID 09/09/15 Levothyroxine [Synthroid*] 50 mcg PO [id number] 09/09/15 Pravastatin Sodium 40 mg PO BEDTIME 09/09/15 Clonazapate 7.5 mg PO BID 11/16/15 Linagliptin/Metformin HCl [Jentadueto 2.5 mg-1000 mg Tab] 1 tab PO BID 11/16/15 Trazodone HCl [Desyrel] 50 mg PO BEDTIME 11/16/15 Omeprazole 20 mg PO DAILY #30 tablet. 11/25/15 Rivaroxaban [Xarelto] 20 mg PO DAILY #30 tablet 11/25/15 Digoxin [Lanoxin*] 0.25 mg PO DAILY #30 tab 08/22/17 Furosemide [Lasix] 40 mg PO BIDL #60 tab 08/22/17 Sacubitril/Valsartan [Entresto 24 mg-26 mg Tablet] 1 tab PO BID #60 tab New Medications: Digoxin [Lanoxin*] 0.25 mg PO DAILY #30 tab Furosemide [Lasix] 40 mg PO BIDL #60 tab Sacubitril/Valsartan [Entresto 24 mg-26 mg Tablet] 1 tab PO BID #60 tab Patient Discharge Instructions: Please f/u with PCP and Pain mgmt Doc once discharge from here. New medication. Entresto BID. Continue taking. Digoxin , Lasix which is incresed to 40mg Twice daily and Beta evangelist. Continue taking all other medication as prescribed by PCP and pain mgmt doc. Low NA diet Diet: Regular Activity: Ad chetan Followup: Larry Cowan MD [ACTIVE - CAN ADMIT] - 1 Week (Call for appointment)
--- NOTE | 2017-08-22 12:58 | RAD REPORT ---
EXAM DESCRIPTION: RAD - Chest Pa And Lat (2 Views) - 08/22/2017 12:50 pm CLINICAL HISTORY: chf infiltrate Chest pain. COMPARISON: Chest Single View dated 08/20/2017; Chest Pa And Lat (2 Views) dated 01/20/2017; Chest Si ngle View dated 12/18/2015; Chest Pa And Lat (2 Views) dated 11/24/2015; Chest For Pe Angio dated 08/20 FINDINGS: Since the prior study, significant improvement in lung aeration is noted. Mild ill-defined opacity is seen in the left lung base posteriorly which may represent atelectasis or aspiration. The heart is mildly prominent size with a single lead pacer device. No displaced fractures. Right-sided venous catheter tip in the SVC. IMPRESSION: Improvement in CHF/ volume overload pattern since 08/20/2017.
--- NOTE | 2017-08-22 13:14 | PN ---
Mrs. Sahni seems to be having both sweating spells and chills. Her temperatures have not been e levated and her laboratory exam does not really give us any guide system where she might have an infe ction, but she seems to be having symptoms of an infection. Her white blood cell count is just 7000. There is not a left shift on preponderance of neutrophils or lymphocytes either one. A chest x-ray when she came in indicated pulmonary edema, but perhaps we should redo a chest x-ray, see now that s he has had diuresis or to see if there has been improvement and see if she may have subclinical pneum onia. Overall, her congestive heart failure seems to be better. She has had a marked diuresis, is n o longer orthopneic. She is known to have mildly depressed ejection fraction and seems to be doing w ell with the present regimen. I will recommend that we repeat a chest x-ray standing PA and lateral in the department to see if there is evidence of infection. CRUZ/VALENTINO Voice ID: [id number] Report ID: [id number]
== END 2017-08-22 14:11 | disposition home or self-care (01) ==
LOC: ER 16:04 → INTOOBSV 22:30 → ERHOLD 22:30 → 2ND 23:42
PROVIDERS: ADMIT Internal Medicine; ATTEND Family Medicine
DX: I50.23 Acute on chronic systolic (congestive) heart failure (principal); I48.2 Chronic atrial fibrillation; E11.9 Type 2 diabetes mellitus without complications; E78.5 Hyperlipidemia, unspecified; I10 Essential (primary) hypertension; E66.9 Obesity, unspecified; Z68.30 Body mass index [BMI] 30.0-30.9, adult; Z95.810 Presence of automatic (implantable) cardiac defibrillator; Z91.14 Patient's other noncompliance with medication regimen; Z91.11 Patient's noncompliance with dietary regimen; Z88.8 Allergy status to other drugs, medicaments and biological substances; E03.9 Hypothyroidism, unspecified; J44.9 Chronic obstructive pulmonary disease, unspecified; M19.90 Unspecified osteoarthritis, unspecified site
CPT/HCPCS: 36415; 71045; 71046; 71275; 80048 ×2; 80076; 82962 ×6; 83735; 83880; 84484 ×4; 85025 ×2; 85610; 85730; 93005 ×3; 94760 ×3; 96374; 96375; 99285; G0378 ×2; J2405 ×2; Q9967; 81003; 81015

== ENCOUNTER 2017-08-30 19:40 | Emergency (ER) | payer OTHER ==
--- OUTSIDE RECORDS SUMMARY | 2017-08-30 19:42 | XMS REPORT | Clinical Summary ---
:1950 Author Organization [facility] Address [address] [place] [address] Care Team Providers Name Role Phone Noé [...] Not on file Implants Implanted Type Area Wax Pattern Assembler Device Expiration Model / Identifier Date Serial / Lot Envlp Impl Crdvrtr Dfb Antbctrl Fully Resorb Lg Aigissrx R - [id number] Cardiovascular N/A: [employer] [id number] / Implanted: 04/24/2016 (Quantity not on file) Implants N/A / Visia Af Vr Device - [id number] CARDIAC DEFIB N/A: [employer] [id number] / Implanted: Qty: 1 on 04/24/2016 by Joss Solano Jr., MD N/A [employer] / Results Not on fileafter 08/29/2016 Insurance Payer Benefit Plan / Group Subscriber ID Type Phone Address MEDICARE MEDICARE PART A AND B xxxxxxxxxx Medicare [place], [place] Home: [address] [phone] [address]
--- NOTE | 2017-08-30 20:36 | RAD REPORT ---
EXAM DESCRIPTION: RAD - Foot Right 3 View - 08/30/2017 8:19 pm CLINICAL HISTORY: PAIN Fall with pain COMPARISON: Ankle Right 3 View dated 08/30/2017 FINDINGS: Right ankle and right foot multiple projections are submitted. A prominent pes cavus deformity is noted. No acute fracture or dislocation seen.
--- NOTE | 2017-08-30 20:41 | EDPHYS ---
Physician Documentation [facility] Name: Pretty Sahni Age: 66 yrs Sex: Female : 1950 Arrival Date: 08/30/2017 Time: 19:44 Bed 11 Private MD: Noé Jacobs ED Physician Bennie Quiroga Historical: - Allergies: 08/30 19:51 Ketamine; ak1 19:51 Lisinopril; ak1 19:51 Doni; ak1 - Home Meds: 19:51 allopurinol 300 mg Oral tab 1 tab once daily [Active]; Belsomra 10 mg Oral tab 1 tab ak1 bedtime prn [Active]; citalopram 40 mg tab 1 tab once daily [Active]; citalopram 40 mg tab 1 tab once daily [Active]; clonazepam 1 mg Oral tab TID prn [Active]; digoxin 125 mcg Oral tab 1 tab once daily [Active]; hydrocodone-acetaminophen 7.5-325 mg Oral tab BID for Pain [Active]; Jentadueto 2.5-1,000 mg Oral tab 2 times per day [Active]; Lasix 40 mg Oral tab 2 times per day [Active]; levothyroxine 50 mcg tab 1 tab once daily [Active]; magnesium oxide 400 mg Oral cap daily [Active]; omeprazole 20 mg Oral cpDR 1 cap once daily [Active]; pravastatin 40 mg Oral tab 1 tab nightly [Active]; spironolactone 25 mg Oral tab 1 tab once daily [Active]; trazodone 50 mg Oral tab 1 tab at bedtime [Active]; Xarelto 20 mg Oral tab 1 tab once daily [Active]; - PMHx: 19:51 Anxiety; CHF; COPD; Depression; Diabetes - NIDDM; Gout; Hypothyroidism; ak1 - PSHx: 19:51 heart cath; Adenoids; Hysterectomy; defibrillator; Tonsillectomy; Tubal ligation; ak1 - Immunization history:: Adult Immunizations unknown. - Social history:: Smoking status: Patient/guardian denies using tobacco. - Ebola Screening: : No symptoms or risks identified at this time. Vital Signs: 19:51 BP 114 / 53; Pulse 80; Resp 16; Temp 98.1; Pulse Ox 97% on R/A; Weight 95.25 kg (R); ak1 Height 5 ft. 2 in. (157.48 cm) (R); Pain 8/; 19:51 Body Mass Index 38.41 (95.25 kg, 157.48 cm) ak1 MDM: 20:01 Patient medically screened. gs 08/30 20:01 Order name: Ankle Right 3 View XRAY gs 08/30 20:01 Order name: Foot Right 3 View XRAY Administered Medications: No medications were administered Disposition: 08/30/17 20:40 Discharged to Home. Impression: Sprain of ankle. - Condition is Stable. - Discharge Instructions: Elastic Bandage and RICE, Ankle Sprain. - Medication Reconciliation Form, Thank You Letter, Antibiotic Education, Prescription Opioid Use form. - Follow up: Austin Judd MD; When: 2 - 3 days; Reason: Re-evaluation by your physician. Addendum: 09/12/2017 07:29 Addendum: CC- right ankle pain, injury HPI-onset just prior to arrival , location right g s foot, severity moderate was getting out of car and mis-stepped everted ankle, no numbness or weakness did not hit head. PMH-reviewed SocHx-lives at home ROS- all negative VS-reviewed Gen- awake alert no distress Head-no injury Neck-supple non tender Chest normal P- lungs clear ms - normal pulses Right ankle tender swelling no deformity Neuro - no deficits MDM-ddx fracture sprain strain reviewed xrays with patient wrapped ankle with augusto bandage. Signatures: Dispatcher [employer] EDMS Sherie Mims RN RN ak1 Bennie Quiroga MD MD Yovana Andrew RN RN rk2 Corrections: (The following items were deleted from the chart) 08/30 20:58 20:40 08/30/2017 20:40 Discharged to Home. Impression: Sprain of ankle. Condition is rk2 Stable. Forms are Medication Reconciliation Form, Thank You Letter, Antibiotic Education, Prescription Opioid Use. Follow up: Austin Judd; When: 2 - 3 days; Reason: Re-evaluation by your physician.
--- NOTE | 2017-08-30 20:41 | ER ---
Nurse's Notes [facility] Name: Pretty Sahni Age: 66 yrs Sex: Female : 1950 Arrival Date: 08/30/2017 Time: 19:44 Bed 11 Private MD: Noé Jacobs Diagnosis: Sprain of ankle Presentation: 08/30 19:51 Presenting complaint: Patient states: fell at 1500 today getting into car. pt c/o right ak1 ankle and right foot pain. Transition of care: patient was not received from another setting of care. Onset of symptoms was August 30, 2017. Risk Assessment: Do you want to hurt yourself or someone else? Patient reports no desire to harm self or others. Initial Sepsis Screen: Does the patient meet any 2 criteria? No. Patient's initial sepsis screen is negative. Does the patient have a suspected source of infection? No. Patient's initial sepsis screen is negative. Care prior to arrival: None. 19:51 Method Of Arrival: Wheelchair ak1 19:51 Acuity: MARK 4 ak1 Triage Assessment: 20:00 General: Appears in no apparent distress. obese, well developed, well nourished, rk2 Behavior is calm, cooperative. Pain: Complains of pain in right foot. Neuro: No deficits noted. Level of Consciousness is alert, obeys commands, Oriented to person, place, time, situation. 20:00 Respiratory: Airway is patent Respiratory effort is even, unlabored. Musculoskeletal: rk2 Reports pain in right foot/ankle. Injury Description: No obvious deformity noted. Historical: - Allergies: 19:51 Ketamine; ak1 19:51 Lisinopril; ak1 19:51 Doni; ak1 - Home Meds: 19:51 allopurinol 300 mg Oral tab 1 tab once daily [Active]; Belsomra 10 mg Oral tab 1 tab ak1 bedtime prn [Active]; citalopram 40 mg tab 1 tab once daily [Active]; citalopram 40 mg tab 1 tab once daily [Active]; clonazepam 1 mg Oral tab TID prn [Active]; digoxin 125 mcg Oral tab 1 tab once daily [Active]; hydrocodone-acetaminophen 7.5-325 mg Oral tab BID for Pain [Active]; Jentadueto 2.5-1,000 mg Oral tab 2 times per day [Active]; Lasix 40 mg Oral tab 2 times per day [Active]; levothyroxine 50 mcg tab 1 tab once daily [Active]; magnesium oxide 400 mg Oral cap daily [Active]; omeprazole 20 mg Oral cpDR 1 cap once daily [Active]; pravastatin 40 mg Oral tab 1 tab nightly [Active]; spironolactone 25 mg Oral tab 1 tab once daily [Active]; trazodone 50 mg Oral tab 1 tab at bedtime [Active]; Xarelto 20 mg Oral tab 1 tab once daily [Active]; - PMHx: 19:51 Anxiety; CHF; COPD; Depression; Diabetes - NIDDM; Gout; Hypothyroidism; ak1 - PSHx: 19:51 heart cath; Adenoids; Hysterectomy; defibrillator; Tonsillectomy; Tubal ligation; ak1 - Immunization history:: Adult Immunizations unknown. - Social history:: Smoking status: Patient/guardian denies using tobacco. - Ebola Screening: : No symptoms or risks identified at this time. Screenin:00 Abuse screen: Denies threats or abuse. rk2 20:00 Nutritional screening: No deficits noted. Tuberculosis screening: No symptoms or risk rk2 factors identified. Fall Risk Ambulatory Aid- Gait- Weak (10 pts.). Assessment: 20:19 Reassessment: xray completed \T\ bedside. rk2 Vital Signs: 19:51 BP 114 / 53; Pulse 80; Resp 16; Temp 98.1; Pulse Ox 97% on R/A; Weight 95.25 kg (R); ak1 Height 5 ft. 2 in. (157.48 cm) (R); Pain 8/10; 19:51 Body Mass Index 38.41 (95.25 kg, 157.48 cm) ak1 ED Course: 19:44 Patient arrived in ED. es 19:45 Noé Jacobs MD is Private Physician. es 19:51 Arm band placed on Patient placed in an exam room, Patient notified of wait time. ak1 19:52 Triage completed. ak1 19:53 Yovana Andrew, ELIUD is Primary Nurse. rk2 19:55 Bennie Quiroga MD is Attending Physician. gs 20:00 Patient has correct armband on for positive identification. Bed in low position. Call rk2 light in reach. 20:16 X-ray completed. Portable x-ray completed in exam room. Patient tolerated procedure kp1 well. 20:19 Ankle Right 3 View XRAY In Process Unspecified. EDMS 20:19 Foot Right 3 View XRAY In Process Unspecified. EDMS 20:19 Foot Right 3 View XRAY Sent. rk2 20:19 Ankle Right 3 View XRAY Sent. rk2 20:39 Austin Judd MD is Referral Physician. gs 20:57 No provider procedures requiring assistance completed. Patient did not have IV access rk2 during this emergency room visit. Administered Medications: No medications were administered Outcome: 20:40 Discharge ordered by . gs 20:57 Discharged to home with crutches. rk2 20:57 Condition: good 20:57 Discharge instructions given to patient. 20:58 Patient left the ED. rk2 Signatures: Dispatcher [employer] Gretta Alberts Amber, RN RN ak1 Beryl Pond kp1 Bennie Quiroga MD MD gs Kidder, Rhonda, RN RN rk2
[2017-08-30 21:04] VITALS: BP 114/53; TEMP 98.1; O2SAT 97
--- NOTE | 2017-08-31 09:01 | RAD REPORT ---
EXAM DESCRIPTION: RAD - Ankle Right 3 View - 08/30/2017 8:22 pm CLINICAL HISTORY: PAIN Fall with pain COMPARISON: Ankle Right 3 View dated 08/30/2017 FINDINGS: Right ankle and right foot multiple projections are submitted. A prominent pes cavus deformity is noted. No acute fracture or dislocation seen.
== END 2017-08-30 20:58 | disposition home or self-care (01) ==
LOC: ER 19:40
DX: S93.401A Sprain of unspecified ligament of right ankle, initial encounter (principal); X50.1XXA Overexertion from prolonged static or awkward postures, initial encounter; Y93.9 Activity, unspecified; Y92.89 Other specified places as the place of occurrence of the external cause; Z88.8 Allergy status to other drugs, medicaments and biological substances; E11.9 Type 2 diabetes mellitus without complications; E03.9 Hypothyroidism, unspecified; Z95.810 Presence of automatic (implantable) cardiac defibrillator
CPT/HCPCS: 99283

== ENCOUNTER 2017-08-31 08:09 | Day surgery (SDC) | payer OTHER ==
--- OUTSIDE RECORDS SUMMARY | 2017-08-31 08:13 | XMS REPORT | Clinical Summary ---
:1950 Author Organization [facility] Address [address] [place] [address] Care Team Providers Name Role Phone Noé [...] Not on file Implants Implanted Type Area Kiln Labourer Device Expiration Model / Identifier Date Serial / Lot Envlp Impl Crdvrtr Dfb Antbctrl Fully Resorb Lg Aigissrx R - [id number] Cardiovascular N/A: [employer] [id number] / Implanted: 04/24/2016 (Quantity not on file) Implants N/A / Visia Af Vr Device - [id number] CARDIAC DEFIB N/A: [employer] CRM [id number] / Implanted: Qty: 1 on 04/24/2016 by Joss Solano Jr., MD N/A [employer] / Results Not on fileafter 08/30/2016 Insurance Payer Benefit Plan / Group Subscriber ID Type Phone Address MEDICARE MEDICARE PART A AND B xxxxxxxxxx Medicare [place], [place] Home: [address] [phone] [address]
[2017-08-31] MEDS ORDERED: NA CHLORIDE 0.9% 1,000 ML ONE (10:30)
[2017-08-31] MEDS ORDERED: PROPOFOL 200 MG/20 ML VIAL IV ONE ×2 (10:58→12:02)
[2017-08-31] MEDS ORDERED: LIDOCAINE 1% MPF 5 ML VIAL ONE ×2 (10:58→12:02)
--- NOTE | 2017-08-31 12:22 | ENDO RPT ---
[address], [address] EGD PROCEDURE REPORT EXAM DATE: 08/31/2017 PATIENT NAME: Pretty Sahni MR#: [id number] BIRTHDATE: 1950 ATTENDING: Ricahrd Ron [address] STATUS: outpatient BANK ACCOUNTANT: Malathi Hallman RN and Suha Mcneal INDICATIONS: The patient is a 66 yr old Female here for an EGD due to left upper quadrant abdominal pain, nausea, and bloating PROCEDURE PERFORMED: EGD with biopsy MEDICATIONS: Per Anesthesia. TOPICAL ANESTHETIC: none CONSENT: The patient understands the risks and benefits of the procedure and understands that these risks include, but are not limited to: sedation, allergic reaction, infection, perforation and/or bleeding. Alternative means of evaluation and treatment include, among others: physical exam, x-rays, and/or surgical intervention. The patient elects to proceed with this endoscopic procedure. DESCRIPTION OF PROCEDURE: During intra-op preparation period all mechanical medical equipment was checked for proper function. Hand hygiene and appropriate measures for infection prevention was taken. Procedure, possible complications, and alternatives including but not limited to the possibility of bleeding, perforation, tear, infection, sepsis, need for surgery, need for blood transfusion, and anesthesia related complications were explained to the patient. After the risks, benefits and alternatives of the procedure were thoroughly explained, Informed consent was verified, confirmed and timeout was successfully executed by the treatment team. The patient was placed in the left lateral position. The patient was anesthetized with topical anesthesia. Through the anesthetized oropharyngeal area, the scope was passed without any difficulty. The Pentax [id number] ([id number]) endoscope was introduced through the mouth and advanced to the third portion of the duodenum. Retroflexed views revealed no abnormalities. The gastroscope was then slowly withdrawn and removed. Mild gastritis was found in the antrum. Multiple biopsies were obtained and sent to pathology. An ulcer was found in the antrum. An ulcer was found in the antrum. Multiple (3) erosions were found in the antrum. Mild duodenitis was found in the bulb of the duodenum. ADVERSE EVENTS: There were no complications. IMPRESSIONS: 1. Mild gastritis in the antrum, s/p biopsies 2. 4 mm star-burst clean-based ulcer in the antrum 3. 4 mm linear clean-based ulcer in the antrum 4. Multiple (3) erosions in the antrum 5. Mild duodenitis in the bulb of the duodenum RECOMMENDATIONS: 1. await biopsy results 2. acid suppression therapy REPEAT EXAM: Richard Ron Dr eSigned: Richard Ron Dr 08/31/2017 12:22 PM cc: Noé Jacobs CPT CODES: ICD9 CODES: PATIENT NAME: Pretty Sahni MR#: [id number]
[2017-08-31 13:00] VITALS: TEMP 97.2
[2017-08-31 13:02] VITALS: BP 108/59; O2SAT 99
== END 2017-08-31 12:55 | disposition home or self-care (01) ==
LOC: OR 08:09
PROVIDERS: ATTEND Internal Medicine Gastroenterology
PROC: 0DB78ZX Excision of Stomach, Pylorus, Via Natural or Artificial Opening Endoscopic, Diagnostic (ICD-10-PCS; 2017-08-31)
PROC: 0DB68ZX Excision of Stomach, Via Natural or Artificial Opening Endoscopic, Diagnostic (ICD-10-PCS; principal; 2017-08-31 11:00)
DX: K25.9 Gastric ulcer, unspecified as acute or chronic, without hemorrhage or perforation (principal); K29.70 Gastritis, unspecified, without bleeding; K29.80 Duodenitis without bleeding; R10.32 Left lower quadrant pain; R11.0 Nausea; R14.0 Abdominal distension (gaseous); I48.91 Unspecified atrial fibrillation; J44.9 Chronic obstructive pulmonary disease, unspecified; E03.9 Hypothyroidism, unspecified; B19.10 Unspecified viral hepatitis B without hepatic coma; M10.9 Gout, unspecified; K21.9 Gastro-esophageal reflux disease without esophagitis; Z86.718 Personal history of other venous thrombosis and embolism; Z95.810 Presence of automatic (implantable) cardiac defibrillator; F32.9 Major depressive disorder, single episode, unspecified; K59.00 Constipation, unspecified; E66.9 Obesity, unspecified
CPT/HCPCS: 43239; 82962; 88305; 88312; J7030

== ENCOUNTER 2017-10-19 14:35 | Emergency (ER) | payer OTHER ==
--- OUTSIDE RECORDS SUMMARY | 2017-10-19 14:43 | XMS REPORT | Clinical Summary ---
:1950 Author Organization [facility] Address [address] [place] [address] Care Team Providers Name Role Phone Noé [...] Not on file Implants Implanted Type Area Csr Retail Device Expiration Model / Identifier Date Serial / Lot Envlp Impl Crdvrtr Dfb Antbctrl Fully Resorb Lg Aigissrx R - [id number] Cardiovascular N/A: [employer] [id number] / Implanted: 04/24/2016 (Quantity not on file) Implants N/A / Visia Af Vr Device - [id number] CARDIAC DEFIB N/A: [employer] CRM [id number] / Implanted: Qty: 1 on 04/24/2016 by Joss Solano Jr., MD N/A [employer] / Results Not on fileafter 10/18/2016 Insurance Payer Benefit Plan / Group Subscriber ID Type Phone Address MEDICARE MEDICARE PART A AND B xxxxxxxxxx Medicare [place], [place] Home: [address] [phone] [address]
[2017-10-19 15:38] LABS: Absolute Lymphocytes (CBC) 2.1 K/uL (0.7-4.9); Absolute Monocytes 0.3 K/uL (0.1-1.3); Basophils % 0.9 % (0-1.3); Eosinophils % 1.8 % (0-4.4); Hematocrit 40.8 % (36.0-45.0); Lymphocytes % 31.7 % (15.3-44.8); MCH 29.6 pg (27.0-35.0); MCV 89.9 fL (80-100); MPV 8.2 fL (7.6-11.3); Monocytes % 4.4 % (3.3-12.3); RBC Red Blood Cell Count 4.54 M/uL (3.86-4.86)
--- NOTE | 2017-10-19 15:40 | RAD REPORT ---
EXAM DESCRIPTION: Nitesh Single View10/19/2017 3:30 pm CLINICAL HISTORY: Chest pain COMPARISON: August 2017 FINDINGS: The lungs appear clear of acute infiltrate. The heart is mildly enlarged. A pacemaker yariel d is in place. A central venous line has its tip in the superior vena cava IMPRESSION: No acute abnormalities displayed
[2017-10-19 15:45] LABS: Protime INR 1.71
[2017-10-19 16:07] LABS: ALT/SGPT 21 U/L (12-78); AST/SGOT 17 U/L (15-37); Albumin 3.8 g/dL (3.4-5.0); Alkaline Phosphatase 169 U/L (45-117); BUN Blood Urea Nitrogen 26 mg/dL (7-18); Bicarbonate 31 mmol/L (21-32); Bilirubin Direct 0.1 mg/dL (0-0.2); Bilirubin Total 0.5 mg/dL (0.2-1.0); CKMB Creatine Kinase MB < 1.0 ng/mL (0.3-3.6); Creatine Phosphokinase 61 U/L (26-192); Glucose Level 142 mg/dL (74-106); Magnesium 2.2 mg/dL (1.8-2.4); NT PRO-BNP 988 pg/mL (<125); Potassium 4.1 mmol/L (3.5-5.1); Protein, Total 7.7 g/dL (6.4-8.2); Sodium Level 140 mmol/L (136-145)
--- NOTE | 2017-10-19 17:00 | RAD REPORT ---
EXAM DESCRIPTION: CT - Chest For Pe Angio - 10/19/2017 4:43 pm CLINICAL HISTORY: Dyspnea COMPARISON: Chest films same date, PE study August 20 TECHNIQUE: Dynamically enhanced 3 mm thick images of the chest were obtained during administration o f approximately 150mL Isovue 370 IV contrast. Coronal and oblique reconstruction images were generate d and reviewed. Exam utilizes a protocol to evaluate the pulmonary arterial tree. All CT scans are performed using dose optimization technique as appropriate and may include automated exposure control or mA/KV adjustment according to patient size. FINDINGS: No pulmonary emboli are identified. The aorta as imaged shows no acute or suspicious finding. Cardiomegaly is present seen primarily as l eft ventricular chamber enlargement. No left ventricular myocardial hypertrophy. No pericardial thick ening or effusion. Interstitial markings are prominent overall. No dense consolidation. There is some mild alveolar opac ification in the posterior left lung base. No pleural effusion or pleural thickening. No mediastinal or hilar suspicious masses. No chest wall masses or abnormal axillary lymphadenopathy. IMPRESSION: No pulmonary emboli identified. Overall prominence of the interstitial markings with some patchy alveolar opacification in the lung b ases. Cardiomegaly is present. CHF/ volume overload, mild in severity, is suspected. This can be correlated with clinical presentati on.
--- NOTE | 2017-10-19 17:31 | EDPHYS ---
Physician Documentation [facility] Name: Pretty Sahni Age: 66 yrs Sex: Female : 1950 Arrival Date: 10/19/2017 Time: 14:38 Bed 7 Private MD: Noé Jacobs ED Physician Nabil Chambers HPI: 10/19 17:26 This 66 yrs old Female presents to ER via Ambulatory with complaints of Blood tw4 Pressure Problem - LOW, Shortness Of Breath, Hand Swelling. 17:26 The patient has shortness of breath with light activity. Onset: The symptoms/episode tw4 began/occurred today. Duration: The symptoms are chronic, and have existed for years. The patient's shortness of breath is aggravated by exertion. Associated signs and symptoms: The patient has no apparent associated signs or symptoms. Severity of symptoms: At their worst the symptoms were moderate in the emergency department the symptoms are unchanged. The patient has not experienced similar symptoms in the past. The patient has not recently seen a physician. Historical: - Allergies: 14:47 KETAMINE; aj1 14:47 Lisinopril; aj1 - Home Meds: 14:47 allopurinol 300 mg Oral tab 1 tab once daily [Active]; Belsomra 10 mg Oral tab 1 tab aj1 bedtime prn [Active]; citalopram 40 mg tab 1 tab once daily [Active]; citalopram 40 mg tab 1 tab once daily [Active]; clonazepam 1 mg Oral tab TID prn [Active]; digoxin 125 mcg Oral tab 1 tab once daily [Active]; hydrocodone-acetaminophen 7.5-325 mg Oral tab BID for Pain [Active]; Jentadueto 2.5-1,000 mg Oral tab 2 times per day [Active]; Lasix 40 mg Oral tab 2 times per day [Active]; levothyroxine 50 mcg tab 1 tab once daily [Active]; magnesium oxide 400 mg Oral cap daily [Active]; omeprazole 20 mg Oral cpDR 1 cap once daily [Active]; pravastatin 40 mg Oral tab 1 tab nightly [Active]; spironolactone 25 mg Oral tab 1 tab once daily [Active]; trazodone 50 mg Oral tab 1 tab at bedtime [Active]; Xarelto 20 mg Oral tab 1 tab once daily [Active]; - PMHx: 14:47 Anxiety; CHF; COPD; Depression; Diabetes - NIDDM; Gout; Hypothyroidism; aj1 - Immunization history:: Flu vaccine is up to date. - Social history:: Smoking status: Patient/guardian denies using tobacco. - Ebola Screening: : Patient denies travel to an Ebola-affected area in the 21 days before illness onset. ROS: 17:26 Constitutional: Negative for fever, chills, and weight loss, Cardiovascular: Negative tw4 for chest pain, palpitations, and edema, Abdomen/GI: Negative for abdominal pain, nausea, vomiting, diarrhea, and constipation, Back: Negative for injury and pain. 17:26 MS/Extremity: Negative for injury and deformity, Skin: Negative for injury, rash, and discoloration, Neuro: Negative for headache, weakness, numbness, tingling, and seizure. 17:26 Respiratory: Positive for dyspnea on exertion, Negative for cough, hemoptysis, orthopnea, pleurisy, shortness of breath. Exam: 17:26 Constitutional: This is a well developed, well nourished patient who is awake, alert, tw4 and in no acute distress. Head/Face: Normocephalic, atraumatic. Chest/axilla: Normal chest wall appearance and motion. Nontender with no deformity. No lesions are appreciated. Cardiovascular: Regular rate and rhythm with a normal S1 and S2. No gallops, murmurs, or rubs. Normal PMI, no JVD. No pulse deficits. Respiratory: Lungs have equal breath sounds bilaterally, clear to auscultation and percussion. No rales, rhonchi or wheezes noted. No increased work of breathing, no retractions or nasal flaring. Abdomen/GI: Soft, non-tender, with normal bowel sounds. No distension or tympany. No guarding or rebound. No evidence of tenderness throughout. Back: No spinal tenderness. No costovertebral tenderness. Full range of motion. MS/ Extremity: Pulses equal, no cyanosis. Neurovascular intact. Full, normal range of motion. Neuro: Awake and alert, GCS 15, oriented to person, place, time, and situation. Cranial nerves II-XII grossly intact. Motor strength 5/5 in all extremities. Sensory grossly intact. Cerebellar exam normal. Normal gait. Vital Signs: 14:47 BP 97 / 48; Pulse 80; Resp 20; Temp 97.4; Pulse Ox 97% on R/A; Weight 90.72 kg (R); aj1 Height 5 ft. 2 in. (157.48 cm) (R); Pain 6/10; 15:30 BP 104 / 55; Pulse 79; Resp 18; ss 16:24 BP 95 / 49; Pulse 75; Resp 18; Pulse Ox 97% on R/A; jb1 17:30 BP 105 / 41; Pulse 73 MON; Resp 21 S; Pulse Ox 95% on R/A; sg 18:20 BP 104 / 52; Pulse 74; Resp 17; Pulse Ox 97% on R/A; ss 14:47 Body Mass Index 36.58 (90.72 kg, 157.48 cm) aj1 MDM: 14:51 Patient medically screened. tw4 17:26 Differential diagnosis: asthma, CHF exacerbation, Chronic Obstructive Pulmonary Disease tw4 pneumonia, pulmonary edema, Pulmonary Embolism reactive airway disease. Antibiotic administration: Not indicated. Data reviewed: vital signs, nurses notes. 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 Counseling: I had a detailed discussion with the patient and/or guardian regarding: the historical points, exam findings, and any diagnostic results supporting the discharge/admit diagnosis, lab results, radiology results. Special discussion: I discussed with the patient/guardian in detail that at this point there is no indication for admission to the hospital. It is understood, however, that if the symptoms persist or worsen the patient needs to return immediately for re-evaluation. 10/19 15:06 Order name: Basic Metabolic Panel; Complete Time: 17:24 10/19 17:25 Interpretation: Normal except: GLUC 142; GFR 41. 10/19 15:06 Order name: CBC with Diff; Complete Time: 16:02 10/19 16:02 Interpretation: RDW 16.1. 10/19 15:06 Order name: Ckmb; Complete Time: 17:24 10/19 17:25 Interpretation: Within normal limits: CKMB < 1.0. 10/19 15:06 Order name: CPK; Complete Time: 17:24 10/19 17:25 Interpretation: Within normal limits: CPK 61. 10/19 15:06 Order name: LFT's; Complete Time: 17:24 4 10/19 17:25 Interpretation: Normal except: ALK 169; GLOB 3.9; A/G 1.0. 10/19 15:06 Order name: Magnesium; Complete Time: 17:24 4 10/19 17:25 Interpretation: Within normal limits: MG 2.2. 10/19 15:06 Order name: NT PRO-BNP; Complete Time: 17:24 10/19 17:25 Interpretation: Normal except: NT PRO-BNP 988. 10/19 15:06 Order name: PT-INR; Complete Time: 16:02 10/19 15:06 Order name: Ptt, Activated; Complete Time: 16:02 10/19 15:06 Order name: Troponin (emerg Dept Use Only); Complete Time: 16:02 10/19 15:06 Order name: XRAY Chest (1 view); Complete Time: 16:02 10/19 15:06 Order name: EKG; Complete Time: 15:07 10/19 16:03 Order name: CT Chest For PE Angio; Complete Time: 17:24 10/19 15:06 Order name: Cardiac monitoring; Complete Time: 17:40 10/19 15:06 Order name: EKG - Nurse/Tech; Complete Time: 17:40 10/19 15:06 Order name: IV Saline Lock; Complete Time: 17:41 10/19 15:06 Order name: Labs collected and sent; Complete Time: 17:41 10/19 15:06 Order name: O2 Per Protocol; Complete Time: 17:41 10/19 15:06 Order name: O2 Sat Monitoring; Complete Time: 17:41 tw4 Administered Medications: 17:42 Not Given (Physician Discretion): Lasix 20 mg IVP once ss Disposition: 10/19/17 17:30 Discharged to Home. Impression: Dyspnea, unspecified, congestive heart failure. - Condition is Stable. - Discharge Instructions: Shortness of Breath, [id number]. - Medication Reconciliation Form, Thank You Letter, Antibiotic Education, Prescription Opioid Use form. - Follow up: Noé Jacobs MD; When: As needed; Reason: Further diagnostic work-up, Recheck today's complaints, Re-evaluation by your physician. - Problem is new. - Symptoms have improved. Signatures: Dispatcher [employer] EDAni Chase RN RN aj1 Judith Stanton RN RN ss Nabil Chambers MD MD tw4 Corrections: (The following items were deleted from the chart) 17:30 17:30 10/19/2017 17:30 Discharged to Home. Impression: Dyspnea, unspecified. Condition tw4 is Stable. Forms are Medication Reconciliation Form, Thank You Letter, Antibiotic Education, Prescription Opioid Use. Follow up: Noé Jacobs; When: As needed; Reason: Further diagnostic work-up, Recheck today's complaints, Re-evaluation by your physician. Problem is new. Symptoms have improved. tw4 18:28 17:30 10/19/2017 17:30 Discharged to Home. Impression: Dyspnea, unspecified; congestive ss heart failure. Condition is Stable. Forms are Medication Reconciliation Form, Thank You Letter, Antibiotic Education, Prescription Opioid Use. Follow up: Noé Jacobs; When: As needed; Reason: Further diagnostic work-up, Recheck today's complaints, Re-evaluation by your physician. Problem is new. Symptoms have improved. tw4
--- NOTE | 2017-10-19 17:31 | ER ---
Nurse's Notes [facility] Name: Pretty Sahni Age: 66 yrs Sex: Female : 1950 Arrival Date: 10/19/2017 Time: 14:38 Bed 7 Private MD: Noé Jacobs Diagnosis: Dyspnea, unspecified;congestive heart failure Presentation: 10/19 14:42 Presenting complaint: Patient states: She was at Dr. Lara's office to have her pain aj1 medication Rx refilled, when they checked her blood pressure it was 81/46. States they checked it 3 times, but her SBP never jose a above the 80's reports. Reports shortness of breath for the past 2 days. Reports light headedness, and malaise. Transition of care: patient was not received from another setting of care. Onset of symptoms was October 17, 2017. Risk Assessment: Do you want to hurt yourself or someone else? Patient reports no desire to harm self or others. Care prior to arrival: None. 14:42 Method Of Arrival: Ambulatory aj1 14:48 Initial Sepsis Screen: Does the patient meet any 2 criteria? No. Patient's initial aj1 sepsis screen is negative. Does the patient have a suspected source of infection? No. Patient's initial sepsis screen is negative. 14:48 Acuity: MARK 2 aj1 Triage Assessment: 14:47 General: Appears in no apparent distress. uncomfortable, Behavior is calm, cooperative, aj1 appropriate for age. Pain: Complains of pain in back Pain currently is 6 out of 10 on a pain scale. Neuro: Level of Consciousness is awake, alert, obeys commands. Cardiovascular: Patient's skin is warm and dry. Respiratory: Reports shortness of breath on exertion Airway is patent Respiratory effort is even, unlabored, Respiratory pattern is regular, symmetrical, Onset: The symptoms/episode began/occurred 2 days ago, the patient has mild shortness of breath. Historical: - Allergies: 14:47 KETAMINE; aj1 14:47 Lisinopril; aj1 - Home Meds: 14:47 allopurinol 300 mg Oral tab 1 tab once daily [Active]; Belsomra 10 mg Oral tab 1 tab aj1 bedtime prn [Active]; citalopram 40 mg tab 1 tab once daily [Active]; citalopram 40 mg tab 1 tab once daily [Active]; clonazepam 1 mg Oral tab TID prn [Active]; digoxin 125 mcg Oral tab 1 tab once daily [Active]; hydrocodone-acetaminophen 7.5-325 mg Oral tab BID for Pain [Active]; Jentadueto 2.5-1,000 mg Oral tab 2 times per day [Active]; Lasix 40 mg Oral tab 2 times per day [Active]; levothyroxine 50 mcg tab 1 tab once daily [Active]; magnesium oxide 400 mg Oral cap daily [Active]; omeprazole 20 mg Oral cpDR 1 cap once daily [Active]; pravastatin 40 mg Oral tab 1 tab nightly [Active]; spironolactone 25 mg Oral tab 1 tab once daily [Active]; trazodone 50 mg Oral tab 1 tab at bedtime [Active]; Xarelto 20 mg Oral tab 1 tab once daily [Active]; - PMHx: 14:47 Anxiety; CHF; COPD; Depression; Diabetes - NIDDM; Gout; Hypothyroidism; aj1 - Immunization history:: Flu vaccine is up to date. - Social history:: Smoking status: Patient/guardian denies using tobacco. - Ebola Screening: : Patient denies travel to an Ebola-affected area in the 21 days before illness onset. Screenin:30 Abuse screen: Denies threats or abuse. Denies injuries from another. Nutritional ss screening: No deficits noted. Tuberculosis screening: Never had TB. Fall Risk No fall in past 12 months (0 pts). No secondary diagnosis (0 pts). IV access (20 points). Ambulatory Aid- None/Bed Rest/Nurse Assist (0 pts). Gait- Normal/Bed Rest/Wheelchair (0 pts) Mental Status- Oriented to own ability (0 pts). Assessment: 15:30 General: Appears in no apparent distress. comfortable, Behavior is calm, cooperative, ss Reports fatigue for 2-3 days, Denies fever, feeling ill. Pain: Complains of pain in back Pain currently is 6 out of 10 on a pain scale. Is chronic. Neuro: Level of Consciousness is awake, alert, obeys commands, Oriented to person, place, time, situation. Cardiovascular: Capillary refill < 3 seconds is brisk in bilateral fingers Rhythm is regular. Respiratory: Airway is patent Respiratory effort is even, unlabored, Respiratory pattern is regular, symmetrical, Breath sounds are clear bilaterally. GI: Abdomen is non-distended, Patient currently denies diarrhea, nausea, vomiting. : No signs and/or symptoms were reported regarding the genitourinary system. EENT: Nares are clear Oral mucosa is moist. Derm: Skin Skin is pink, warm \T\ dry. normal. Musculoskeletal: Circulation, motion, and sensation intact. Range of motion: intact in all extremities. Vital Signs: 14:47 BP 97 / 48; Pulse 80; Resp 20; Temp 97.4; Pulse Ox 97% on R/A; Weight 90.72 kg (R); aj1 Height 5 ft. 2 in. (157.48 cm) (R); Pain 6/10; 15:30 BP 104 / 55; Pulse 79; Resp 18; ss 16:24 BP 95 / 49; Pulse 75; Resp 18; Pulse Ox 97% on R/A; jb1 17:30 BP 105 / 41; Pulse 73 MON; Resp 21 S; Pulse Ox 95% on R/A; sg 18:20 BP 104 / 52; Pulse 74; Resp 17; Pulse Ox 97% on R/A; ss 14:47 Body Mass Index 36.58 (90.72 kg, 157.48 cm) aj1 ED Course: 14:38 Patient arrived in ED. sb2 14:38 Noé Jacobs MD is Private Physician. sb2 14:49 Triage completed. aj1 14:49 Arm band placed on Patient placed in an exam room. aj1 14:50 Nabil Chambers MD is Attending Physician. tw4 15:29 X-ray completed. Portable x-ray completed in exam room. Patient tolerated procedure jb2 well. 15:30 XRAY Chest (1 view) In Process Unspecified. EDMS 15:30 Patient has correct armband on for positive identification. Bed in low position. Call ss light in reach. Side rails up X 1. Adult w/ patient. monitoring engineer on. Pulse ox on. NIBP on. 15:30 Inserted saline lock: 22 gauge in right antecubital area, using aseptic technique. ss Blood collected. Patient maintains SpO2 saturation greater than 95% on room air. 15:40 Judith Stanton, ELIUD is Primary Nurse. ss 16:[address] vm2 16:43 CT Chest For PE Angio In Process Unspecified. EDMS 17:29 Noé Jacobs MD is Referral Physician. tw4 18:27 No provider procedures requiring assistance completed. IV discontinued, intact, ss bleeding controlled, No redness/swelling at site. Pressure dressing applied. Administered Medications: 17:42 Not Given (Physician Discretion): Lasix 20 mg IVP once ss Outcome: 17:30 Discharge ordered by . tw4 18:27 Discharged to home ambulatory. ss 18:27 Condition: good 18:27 Discharge instructions given to patient, family, Instructed on discharge instructions, follow up and referral plans. Demonstrated understanding of instructions, follow-up care. 18:28 Patient left the ED. ss Signatures: Dispatcher [employer] EDWY Gen Arguello1 Ani Whittington RN RN bartolo1 Austin Arizmendi RN RN Deandre Booth2 Judith Stanton RN RN Shonda Felix2 Nabil Chambers MD MD tw4 Cami Connors sb2
[2017-10-19 18:55] VITALS: TEMP 97.4
[2017-10-19 18:59] VITALS: BP 104/52; O2SAT 97
--- NOTE | 2017-10-19 21:11 | EKG ---
Test Date: 2017-10-19 Test Time: 15:13:26 Digital Asset Manager: NUZHAT/Connor MEASUREMENT RESULTS: Intervals: Rate: 78 WA: 152 QRSD: 102 QT: 398 QTc: 453 [place]: P: 47 WA: 152 QRS: 1 T: 39 INTERPRETIVE STATEMENTS: Normal sinus rhythm Moderate voltage criteria for LVH, may be normal variant Nonspecific T wave abnormality Abnormal ECG Compared to ECG 08/20/2017 23:53:26 No significant changes Electronically Signed On 10-19-17 21:10:48 CDT by Larry Cowan
== END 2017-10-19 18:28 | disposition home or self-care (01) ==
LOC: ER 14:35
DX: I50.9 Heart failure, unspecified (principal); E11.9 Type 2 diabetes mellitus without complications; J44.9 Chronic obstructive pulmonary disease, unspecified; E03.9 Hypothyroidism, unspecified; F41.9 Anxiety disorder, unspecified; F32.9 Major depressive disorder, single episode, unspecified; Z88.8 Allergy status to other drugs, medicaments and biological substances
CPT/HCPCS: 36415; 71045; 71275; 80048; 80076; 82550; 82553; 83735; 83880; 84484; 85025; 85610; 85730; 93005; Q9967; 99285

== ENCOUNTER 2018-01-25 11:19 | Emergency (ER) | payer OTHER ==
--- OUTSIDE RECORDS SUMMARY | 2018-01-25 11:23 | XMS REPORT | Clinical Summary ---
:1950 Author Organization [facility] Address [address] [place] [address] Care Team Providers Name Role Phone Noé Jacobs MD Primary Care Provider Allergies Active Allergy Reactions Severity Noted Date Comments Lisinopril Other (See Comments) 04/24/2016 Kidney failure Medications Medication Sig Dispensed Refills Start Date End Date Status digOXIN (LANOXIN) 125 Take 125 mcg by 0 Active mcg tablet mouth daily. rivaroxaban (XARELTO) Take 20 mg by 0 Active 20 mg tablet mouth daily. carvedilol CR (COREG Take 10 mg by 0 Active CR) 10 MG 24 hr capsule mouth daily. potassium chloride Take 10 mEq by 0 Active (K-DUR,KLOR-CON) 10 MEQ mouth daily. CR tablet cholecalciferol, Take 50,000 Units 0 Active vitamin D3, (VITAMIN by mouth once a D3) 2,000 unit capsule week. capsule allopurinol (ZYLOPRIM) Take 300 mg by 0 Active 300 MG tablet mouth daily. levothyroxine Take 50 mcg by 0 Active (SYNTHROID, LEVOXYL) 50 mouth every mcg tablet morning. pravastatin (PRAVACHOL) Take 40 mg by 0 Active 40 MG tablet mouth daily. citalopram (CeleXA) 40 Take 40 mg by 0 Active MG tablet mouth daily. linagliptin (TRADJENTA) Take 5 mg by 0 Active 5 mg tablet mouth daily. traZODone (DESYREL) 50 Take 50 mg by 0 Active MG tablet mouth nightly. hydromorPHONE Take 4 mg by 0 Active (DILAUDID) 4 MG tablet mouth every 4 (four) hours as needed for moderate pain. furosemide (LASIX) 40 Take 40 mg by 0 Active mg tablet mouth 2 (two) times a day. clonAZEPAM (KlonoPIN) Take 0.5 mg by 0 Active 0.5 MG tablet mouth 3 (three) times a day as needed for seizures. magnesium oxide Take 400 mg by 0 Active (MAG-OX) 400 mg tablet mouth daily. omeprazole (PriLOSEC) Take 20 mg by 0 Active 20 MG capsule mouth daily. Active Problems Not on file Family History Medical History Relation Name Comments Coronary artery disease Father Coronary artery disease Mother Thyroid disease Sister Relation Name Status Comments Father Mother Sister Social History Tobacco Use Types Packs/Day Years Used Date Never Smoker Tobacco Cessation: Counseling Given: No Alcohol Use Drinks/Week oz/Week Comments No Sex Assigned at Date Recorded Not on file Job Start Date Occupation Industry Not on file Not on file Not on file Travel History Travel Start Travel End No recent travel history available. Last Filed Vital Signs Not on file Plan of Treatment Not on file Implants Implanted Type Area Tile Shader Device Shelf Model / Identifier Expiration Serial / Date Lot Envlp Impl Crdvrtr Dfb Antbctrl Fully Resorb Lg Aigissrx R - [id number] Cardiovascular N/A: [employer] [id number] / Implanted: 04/24/2016 (Quantity not on file) Implants N/A / Visia Af Vr Device - [id number] CARDIAC DEFIB N/A: [email or web address] [id number] / Implanted: Qty: 1 on 04/24/2016 by Joss Solano Jr., MD N/A [email or web address] / Results Not on fileafter 01/24/2017 Insurance Payer Benefit Plan / Group Subscriber ID Type Phone Address MEDICARE MEDICARE PART A AND B xxxxxxxxxx Medicare [place], [place] Advance Directives Patient has advance care planning documents on file. For more information, please contact:Andrés [place] [address]
[2018-01-25] MEDS ORDERED: FUROSEMIDE 100 MG/10 ML VIAL IV ONE (12:21)
[2018-01-25 12:38] LABS: Arterial Blood Carboxyhemoglob 1.2 % (0-1.5); Blood Gas Oxyhemoglobin 93.4 % (94-97); Blood O2 Saturation 95.7 % (92-98.5)
--- NOTE | 2018-01-25 12:54 | RAD REPORT ---
EXAM DESCRIPTION: Nitesh Single View01/25/2018 12:47 pm CLINICAL HISTORY: Shortness of breath COMPARISON: October 2017 FINDINGS: Mild interstitial lung opacities appear chronic. The lungs appear clear of acute infiltrate. The heart is mildly enlarged. Pacemaker leads are in bautista ce. IMPRESSION: No acute abnormalities displayed
[2018-01-25 13:10] LABS: Protime INR 1.1
[2018-01-25 13:11] LABS: Absolute Lymphocytes (CBC) 1.7 K/uL (0.7-4.9); Absolute Monocytes 0.4 K/uL (0.1-1.3); Absolute Neutrophil 7.5 K/uL (1.8-8.0); Basophils % 0.4 % (0-1.3); Eosinophils % 1.3 % (0-4.4); Hematocrit 38.8 % (36.0-45.0); Lymphocytes % 17.9 % (15.3-44.8); MCH 31.1 pg (27.0-35.0); MCV 90.9 fL (80-100); MPV 8.5 fL (7.6-11.3); Monocytes % 3.7 % (3.3-12.3); RBC Red Blood Cell Count 4.27 M/uL (3.86-4.86)
[2018-01-25 13:23] LABS: ALT/SGPT 22 U/L (12-78); AST/SGOT 17 U/L (15-37); Albumin 3.6 g/dL (3.4-5.0); Alkaline Phosphatase 144 U/L (45-117); BUN Blood Urea Nitrogen 36 mg/dL (7-18); Bicarbonate 28 mmol/L (21-32); Bilirubin Direct 0.1 mg/dL (0-0.2); Bilirubin Total 0.4 mg/dL (0.2-1.0); Glucose Level 101 mg/dL (74-106); Magnesium 2.6 mg/dL (1.8-2.4); NT PRO-BNP 2393 pg/mL (<125); Potassium 4.4 mmol/L (3.5-5.1); Protein, Total 7.4 g/dL (6.4-8.2); Sodium Level 142 mmol/L (136-145); Troponin I < 0.02 ng/mL (0.0-0.045)
--- NOTE | 2018-01-25 14:53 | RAD REPORT ---
EXAM DESCRIPTION: CT - Abdomen Pelvis Wo Contrast - 01/25/2018 2:42 pm CLINICAL HISTORY: Abdominal pain COMPARISON: May 2017 TECHNIQUE: Computed axial tomography of the abdomen and pelvis was obtained. IV and oral contrast we re not requested. All CT scans are performed using dose optimization technique as appropriate and may include automated exposure control or mA/KV adjustment according to patient size. FINDINGS: The evaluation of solid organs, vessels and bowel is limited secondary to the lack of con trast administration. Minimal bilateral pleural effusions The liver, spleen, pancreas, adrenals and kidneys appear grossly normal. The appendix is normal. There is no evidence of diverticulitis. A large amount stool is present throu ghout the colon. Diffuse edema is present posterior subcutaneous tissues. IMPRESSION: Large amount stool throughout the colon
--- NOTE | 2018-01-25 15:06 | ER ---
Nurse's Notes [facility] Name: Pretty Sahni Age: 67 yrs Sex: Female : 1950 Arrival Date: 01/25/2018 Time: 11:21 Bed 17 Private MD: Noé Jacobs Diagnosis: Acute diastolic (congestive) heart failure;Constipation Presentation: 01/25 11:26 Presenting complaint: Patient states: C/o SOB started an hour and a half ago. I've jl7 gained 14 pounds in 4 days, called the doctor and he told me to come. Transition of care: patient was not received from another setting of care. Onset of symptoms was January 25, 2018 at 10:00. Risk Assessment: Do you want to hurt yourself or someone else? Patient reports no desire to harm self or others. Initial Sepsis Screen: Does the patient meet any 2 criteria? No. Patient's initial sepsis screen is negative. Does the patient have a suspected source of infection? No. Patient's initial sepsis screen is negative. Care prior to arrival: None. 11:26 Method Of Arrival: Ambulatory [facility] 11:26 Acuity: MARK 2 [facility] Triage Assessment: 11:51 General: Appears in no apparent distress. uncomfortable, Behavior is calm, cooperative, hj appropriate for age. Pain: Denies pain. Respiratory: Reports shortness of breath Onset: The symptoms/episode began/occurred just prior to arrival, the patient has mild shortness of breath. Historical: - Allergies: 11:28 KETAMINE; jl7 11:28 Lisinopril; jl7 - Home Meds: 11:28 allopurinol 300 mg Oral tab 1 tab once daily [Active]; Belsomra 10 mg Oral tab 1 tab hj bedtime prn [Active]; citalopram 40 mg tab 1 tab once daily [Active]; citalopram 40 mg tab 1 tab once daily [Active]; clonazepam 1 mg Oral tab TID prn [Active]; digoxin 125 mcg Oral tab 1 tab once daily [Active]; hydrocodone-acetaminophen 7.5-325 mg Oral tab BID for Pain [Active]; Jentadueto 2.5-1,000 mg Oral tab 2 times per day [Active]; Lasix 40 mg Oral tab 2 times per day [Active]; levothyroxine 50 mcg tab 1 tab once daily [Active]; magnesium oxide 400 mg Oral cap daily [Active]; omeprazole 20 mg Oral cpDR 1 cap once daily [Active]; pravastatin 40 mg Oral tab 1 tab nightly [Active]; spironolactone 25 mg Oral tab 1 tab once daily [Active]; trazodone 50 mg Oral tab 1 tab at bedtime [Active]; Xarelto 20 mg Oral tab 1 tab once daily [Active]; - PMHx: 11:28 Anxiety; CHF; COPD; Depression; Diabetes - NIDDM; Gout; Hypothyroidism; Fibromyalgia; jl7 - Immunization history:: Adult Immunizations unknown. - Social history:: Smoking status: Patient/guardian denies using tobacco. - Ebola Screening: : No symptoms or risks identified at this time. Screenin:51 Abuse screen: Denies threats or abuse. Denies injuries from another. Nutritional hj screening: No deficits noted. Tuberculosis screening: No symptoms or risk factors identified. Fall Risk None identified. Assessment: 11:51 Cardiovascular: Capillary refill < 3 seconds Patient's skin is warm and dry. Rhythm is. hj Respiratory: Airway is patent Respiratory effort is even, labored, Respiratory pattern is regular, symmetrical, 12:30 Reassessment: Patient and/or family updated on plan of care and expected duration. Pain hj level reassessed. Patient is alert, oriented x 3, equal unlabored respirations, skin warm/dry/pink. awaiting results and POC;. 13:27 Reassessment: Patient and/or family updated on plan of care and expected duration. Pain hj level reassessed. Patient is alert, oriented x 3, equal unlabored respirations, skin warm/dry/pink. awaiting results and POC;. 14:30 Reassessment: wheeled to CT;. hj Vital Signs: 11:28 BP 118 / 66; Pulse 84; Resp 24 S; Temp 98(O); Pulse Ox 97% on R/A; Weight 95.25 kg (R); jl7 Height 5 ft. 2 in. (157.48 cm) (R); Pain 6/10; 12:30 BP 110 / 70; Pulse 85; Resp 18; Pulse Ox 100% on R/A; hj 13:29 BP 115 / 69; Pulse 84; Resp 18; Pulse Ox 100% on R/A; hj 14:30 BP 118 / 74; Pulse 85; Resp 18; Pulse Ox 100% on R/A; hj 15:45 BP 101 / 71; Pulse 86; Resp 15; Pulse Ox 97% on R/A; rv 11:28 Body Mass Index 38.41 (95.25 kg, 157.48 cm) jl7 ED Course: 11:21 Patient arrived in ED. mr 11:21 Noé Jacobs MD is Private Physician. mr 11:28 Triage completed. jl7 11:28 Arm band placed on right wrist. jl7 11:46 Joseph Root PA is PHCP. jr8 11:46 Frantz Rasmussne MD is Attending Physician. jr8 11:51 Ramiro Collins, ELIUD is Primary Nurse. hj 11:52 Patient has correct armband on for positive identification. Placed in gown. Bed in low hj position. Call light in reach. Side rails up X 1. 12:18 Missed attempt(s): 22 gauge in right antecubital area. jb1 12:18 Missed attempt(s): 22 gauge in left antecubital area. jb1 12:20 Initial lab(s) drawn, by me, sent to lab. Inserted saline lock: 24 gauge in right hand, hj using aseptic technique. Blood collected. 12:25 EKG done, by furniture repair technician. reviewed by Joseph GRANGER. 3 12:32 X-ray completed. Portable x-ray completed in exam room. Patient tolerated procedure jb2 well. 15:05 Noé Jacobs MD is Referral Physician. jr8 15:46 No provider procedures requiring assistance completed. IV discontinued, bleeding rv controlled, No redness/swelling at site. Pressure dressing applied. Administered Medications: 12:46 Drug: Lasix 60 mg Route: IVP; Site: right hand; hj 13:14 Follow up: Response: No adverse reaction hj Outcome: 15:05 Discharge ordered by . jr8 15:46 Discharged to home via wheelchair. rv 15:46 Condition: good 15:46 Discharge instructions given to patient, Instructed on discharge instructions, follow up and referral plans. medication usage, Demonstrated understanding of instructions, follow-up care, medications, Prescriptions given X 1. 15:47 Patient left the ED. rv Signatures: Gen Arguello jb1 Bettina Rivera mr AndrewsDeandre jb2 Joseph Root PA PA jr8 Ramiro Collins RN RN hj Jenny Martinez RN RN jl7 Rossy Mello 3 Marcos Chamberlain, RN RN Briana Dixon ls3 Corrections: (The following items were deleted from the chart) 12:45 12:44 X-ray completed. Portable x-ray completed in exam room. Patient tolerated ls3 procedure well. ls3
--- NOTE | 2018-01-25 15:06 | EDPHYS ---
Physician Documentation [facility] Name: Pretty Sahni Age: 67 yrs Sex: Female : 1950 Arrival Date: 01/25/2018 Time: 11:21 Bed 17 Private MD: Noé Jacobs ED Physician Frantz Rasmussen HPI: 01/25 13:28 This 67 yrs old Female presents to ER via Ambulatory with complaints of jr8 Shortness Of Breath. 13:28 The patient has shortness of breath at rest. Onset: The symptoms/episode began/occurred jr8 gradually, 2 day(s) ago, and became worse and became persistent. Duration: The symptoms are continuous. The patient's shortness of breath is aggravated by talking, walking. Associated signs and symptoms: Pertinent positives: weight gain. Severity of symptoms: in the emergency department the symptoms. It is unknown whether or not the patient has had similar symptoms in the past. The patient has not recently seen a physician. History of CHF/COPD. Stated that she has had shortness of breath over the past few days that has progressively worsened. Significant weight gain recently. Historical: - Allergies: 11:28 KETAMINE; jl7 11:28 Lisinopril; jl7 - Home Meds: 11:28 allopurinol 300 mg Oral tab 1 tab once daily [Active]; Belsomra 10 mg Oral tab 1 tab hj bedtime prn [Active]; citalopram 40 mg tab 1 tab once daily [Active]; citalopram 40 mg tab 1 tab once daily [Active]; clonazepam 1 mg Oral tab TID prn [Active]; digoxin 125 mcg Oral tab 1 tab once daily [Active]; hydrocodone-acetaminophen 7.5-325 mg Oral tab BID for Pain [Active]; Jentadueto 2.5-1,000 mg Oral tab 2 times per day [Active]; Lasix 40 mg Oral tab 2 times per day [Active]; levothyroxine 50 mcg tab 1 tab once daily [Active]; magnesium oxide 400 mg Oral cap daily [Active]; omeprazole 20 mg Oral cpDR 1 cap once daily [Active]; pravastatin 40 mg Oral tab 1 tab nightly [Active]; spironolactone 25 mg Oral tab 1 tab once daily [Active]; trazodone 50 mg Oral tab 1 tab at bedtime [Active]; Xarelto 20 mg Oral tab 1 tab once daily [Active]; - PMHx: 11:28 Anxiety; CHF; COPD; Depression; Diabetes - NIDDM; Gout; Hypothyroidism; Fibromyalgia; jl7 - Immunization history:: Adult Immunizations unknown. - Social history:: Smoking status: Patient/guardian denies using tobacco. - Ebola Screening: : No symptoms or risks identified at this time. ROS: 13:28 Eyes: Negative for injury, pain, redness, and discharge, ENT: Negative for injury, jr8 pain, and discharge, Neck: Negative for injury, pain, and swelling, Abdomen/GI: Negative for abdominal pain, nausea, vomiting, diarrhea, and constipation, Back: Negative for injury and pain, MS/Extremity: Negative for injury and deformity, Skin: Negative for injury, rash, and discoloration, Neuro: Negative for headache, weakness, numbness, tingling, and seizure. 13:28 Cardiovascular: Positive for edema, orthopnea, Negative for chest pain, palpitations, paroxysmal nocturnal dyspnea. 13:28 Respiratory: Positive for dyspnea on exertion, orthopnea, shortness of breath, wheezing. Exam: 13:28 Eyes: Pupils equal round and reactive to light, extra-ocular motions intact. Lids and jr8 lashes normal. Conjunctiva and sclera are non-icteric and not injected. Cornea within normal limits. Periorbital areas with no swelling, redness, or edema. ENT: Nares patent. No nasal discharge, no septal abnormalities noted. Tympanic membranes are normal and external auditory canals are clear. Oropharynx with no redness, swelling, or masses, exudates, or evidence of obstruction, uvula midline. Mucous membranes moist. Neck: Trachea midline, no thyromegaly or masses palpated, and no cervical lymphadenopathy. Supple, full range of motion without nuchal rigidity, or vertebral point tenderness. No Meningismus. Abdomen/GI: Soft, non-tender, with normal bowel sounds. No distension or tympany. No guarding or rebound. No evidence of tenderness throughout. Back: No spinal tenderness. No costovertebral tenderness. Full range of motion. Skin: Warm, dry with normal turgor. Normal color with no rashes, no lesions, and no evidence of cellulitis. MS/ Extremity: Pulses equal, no cyanosis. Neurovascular intact. Full, normal range of motion. Neuro: Awake and alert, GCS 15, oriented to person, place, time, and situation. Cranial nerves II-XII grossly intact. Motor strength 5/5 in all extremities. Sensory grossly intact. Cerebellar exam normal. Normal gait. 13:28 Cardiovascular: Rate: normal, Rhythm: regular, Pulses: Pulses are 2+ in right radial artery and left radial artery. Heart sounds: normal, normal S1and S2, no S3 or S4, no murmur, no rub, no gallop, Edema: 1+ edema to level of right hand, right fingers, left midcalf, left ankle, left foot, left toes, left hand, left fingers, right midcalf, right ankle, right foot and right toes. 13:28 Respiratory: mild respiratory distress is noted, Respirations: tachypnea, Breath sounds: rales, that are mild, are located in both bases. Vital Signs: 11:28 BP 118 / 66; Pulse 84; Resp 24 S; Temp 98(O); Pulse Ox 97% on R/A; Weight 95.25 kg (R); jl7 Height 5 ft. 2 in. (157.48 cm) (R); Pain 6/10; 12:30 BP 110 / 70; Pulse 85; Resp 18; Pulse Ox 100% on R/A; hj 13:29 BP 115 / 69; Pulse 84; Resp 18; Pulse Ox 100% on R/A; hj 14:30 BP 118 / 74; Pulse 85; Resp 18; Pulse Ox 100% on R/A; hj 15:45 BP 101 / 71; Pulse 86; Resp 15; Pulse Ox 97% on R/A; rv 11:28 Body Mass Index 38.41 (95.25 kg, 157.48 cm) jl7 MDM: 11:46 Patient medically screened. jr8 13:31 Data reviewed: vital signs, nurses notes, lab test result(s), EKG, radiologic studies, jr8 plain films. Data interpreted: Pulse oximetry: on room air is 97 %. Counseling: I had a detailed discussion with the patient and/or guardian regarding: the historical points, exam findings, and any diagnostic results supporting the discharge/admit diagnosis, lab results, radiology results. 13:44 ED course: Patient breathing better but complaining of abdominal pain now. Will assess jr8 this before admission. . 15:04 ED course: Patient feeling much better after diuresis. 100% on RA. No respiratory jr8 distress. Addressed the constipation as well and will send her home on medicine. Patient good with this and will come back if worse. Will adjust her Lasix dose for the next three days as well. 01/25 11:57 Order name: Basic Metabolic Panel 01/25 11:57 Order name: CBC with Diff 01/25 11:57 Order name: LFT's 01/25 11:57 Order name: Magnesium 01/25 11:57 Order name: NT PRO-BNP 01/25 11:57 Order name: PT-INR 01/25 11:57 Order name: Troponin (emerg Dept Use Only) 01/25 12:40 Order name: ABG Arterial Blood Gas; Complete Time: 13:28 EDMS 01/25 13:13 Order name: Protime (+INR); Complete Time: 13:28 EDMS 01/25 13:17 Order name: CBC with Automated Diff; Complete Time: 13:28 EDRI 01/25 13:24 Order name: Basic Metabolic Panel; Complete Time: 13:28 EDRI 01/25 13:24 Order name: Liver (Hepatic) Function; Complete Time: 13:28 EDMS 01/25 13:24 Order name: Troponin I; Complete Time: 13:28 EDRI 01/25 13:24 Order name: NT PRO-BNP; Complete Time: 13:28 EDMS 01/25 11:57 Order name: XRAY Chest (1 view) 01/25 11:57 Order name: EKG; Complete Time: 13:03 01/25 11:57 Order name: Cardiac monitoring; Complete Time: 11:58 01/25 11:57 Order name: EKG - Nurse/Tech; Complete Time: 11:58 01/25 11:57 Order name: IV Saline Lock; Complete Time: 12:46 01/25 11:57 Order name: Labs collected and sent; Complete Time: 12:46 01/25 11:57 Order name: O2 Per Protocol; Complete Time: 11:58 01/25 11:57 Order name: O2 Sat Monitoring; Complete Time: 11:59 01/25 12:54 Order name: RAD; Complete Time: 13:28 EDRI 01/25 13:24 Order name: Magnesium; Complete Time: 13:28 EDMS 01/25 13:44 Order name: CT Abd/Pelvis - W/Contrast jr8 01/25 14:14 Order name: Urine Dipstick--Ancillary (enter results) bd 01/25 14:54 Order name: CT; Complete Time: 14:55 EDMS Administered Medications: 12:46 Drug: Lasix 60 mg Route: IVP; Site: right hand; 13:14 Follow up: Response: No adverse reaction Disposition: 01/26 06:35 Co-signature as Attending Physician, Frantz Rasmussen MD I agree with the assessment and mars plan of care. Disposition: 01/25/18 15:05 Discharged to Home. Impression: Acute diastolic (congestive) heart failure, Constipation. - Condition is Stable. - Discharge Instructions: Heart Failure, Constipation, Adult. - Prescriptions for Lactulose 10 gram/15 mL Oral Solution - take 30 milliliters by ORAL route 2 times per day for 2 days; 120 milliliter. - Medication Reconciliation Form, Thank You Letter, Antibiotic Education, Prescription Opioid Use form. - Follow up: Noé Jacobs MD; When: 2 - 3 days; Reason: Recheck today's complaints, Continuance of care, Re-evaluation by your physician. - Problem is new. - Symptoms have improved. Signatures: Dispatcher [employer] EDRI Frantz Rasmussen MD MD cha Williams, Irene RN Joseph Rodriguez PA PA jr8 Ramiro Collins RN RN hj Leal, Jahala, RN RN jl7 Marcos Chamberlain RN RN rv Corrections: (The following items were deleted from the chart) 01/25 15:47 15:05 01/25/2018 15:05 Discharged to Home. Impression: Acute diastolic (congestive) rv heart failure; Constipation. Condition is Stable. Forms are Medication Reconciliation Form, Thank You Letter, Antibiotic Education, Prescription Opioid Use. Follow up: Noé Jacobs; When: 2 - 3 days; Reason: Recheck today's complaints, Continuance of care, Re-evaluation by your physician. Problem is new. Symptoms have improved. jr8
--- NOTE | 2018-01-25 16:00 | EKG ---
Test Date: 2018-01-25 Test Time: 11:58:38 Dispatcher [employer]: JEFFRY MEASUREMENT RESULTS: Intervals: Rate: 83 MT: 156 QRSD: 108 QT: 408 QTc: 479 [place]: P: 51 MT: 156 QRS: 3 T: 59 INTERPRETIVE STATEMENTS: Normal sinus rhythm Incomplete left bundle branch block Nonspecific T wave abnormality Prolonged QT Abnormal ECG Compared to ECG 10/19/2017 15:13:26 Left bundle-branch block now present Prolonged QT interval now present Left ventricular hypertrophy no longer present T-wave abnormality still present Electronically Signed On 01-25-18 15:59:08 HOME CARE ASSOCIATE by Buzz Dickerson
[2018-01-25 16:59] VITALS: TEMP 98
[2018-01-25 17:04] VITALS: BP 101/71; O2SAT 97
[2018-01-25 19:35] LABS: Urine Glucose NEGATIVE (NEG); Urine Specific Gravity 1.015 (1.005-1.030)
[2018-01-25 19:36] LABS: Urine Blood NEGATIVE (NEG); Urine Protein NEGATIVE (NEG); Urine pH 7.5 (5.0-7.0)
== END 2018-01-25 15:47 | disposition home or self-care (01) ==
LOC: ER 11:19
DX: I50.31 Acute diastolic (congestive) heart failure (principal); E11.9 Type 2 diabetes mellitus without complications; E03.9 Hypothyroidism, unspecified; F32.9 Major depressive disorder, single episode, unspecified; J44.9 Chronic obstructive pulmonary disease, unspecified; Z79.01 Long term (current) use of anticoagulants; Z88.8 Allergy status to other drugs, medicaments and biological substances
CPT/HCPCS: 36415; 71045; 74176; 80048; 80076; 81003; 82805; 83735; 83880; 84484; 85025; 85610; 93005

== ENCOUNTER 2018-01-27 20:08 | Observation (INO) | payer OTHER ==
--- OUTSIDE RECORDS SUMMARY | 2018-01-27 20:27 | XMS REPORT | Clinical Summary ---
:1950 Author Organization [facility] Address [address] [place] [address] Care Team Providers Name Role Phone Noé [...] Not on file Implants Implanted Type Area Meteorological Aide Device Shelf Model / Identifier Expiration Serial / Date Lot Envlp Impl Crdvrtr Dfb Antbctrl Fully Resorb Lg Aigissrx R - [id number] Cardiovascular N/A: [employer] [id number] / Implanted: 04/24/2016 (Quantity not on file) Implants N/A / Visia Af Vr Device - [id number] CARDIAC DEFIB N/A: [employer] [id number] / Implanted: Qty: 1 on 04/24/2016 by Joss Solano Jr., MD N/A [employer] / Results Not on fileafter 01/26/2017 Insurance Payer Benefit Plan / Group Subscriber ID Type Phone Address MEDICARE MEDICARE PART A AND B xxxxxxxxxx Medicare [place], [place] Advance Directives Patient has advance care planning documents on file. For more information, please contact:[place] [place] [address]
[2018-01-27] MEDS ORDERED: LEVALBUTEROL 1.25 MG/3 ML NEB ONE (20:34)
[2018-01-27] MEDS ORDERED: KETOROLAC 30 MG/ML INJ ONE (20:34)
[2018-01-27] MEDS ORDERED: METHYLPREDNISOLONE 125 MG INJ ONE (20:34)
[2018-01-27 20:51] LABS: Absolute Lymphocytes (CBC) 2.2 K/uL (0.7-4.9); Absolute Monocytes 0.3 K/uL (0.1-1.3); Absolute Neutrophil 4.6 K/uL (1.8-8.0); Basophils % 0.9 % (0-1.3); Eosinophils % 1.9 % (0-4.4); Lymphocytes % 30.4 % (15.3-44.8); MCH 30.5 pg (27.0-35.0); MCV 91.7 fL (80-100); MPV 8.4 fL (7.6-11.3); Monocytes % 4.2 % (3.3-12.3); RBC Red Blood Cell Count 4.14 M/uL (3.86-4.86)
--- NOTE | 2018-01-27 21:07 | RAD REPORT ---
EXAM DESCRIPTION: RAD - Chest Single View - 01/27/2018 8:45 pm CLINICAL HISTORY: Chest pain;COPD;Dyspnea Chest pain. COMPARISON: Chest Single View dated 01/25/2018; Chest Pa And Lat (2 Views) dated 12/16/2017; Chest S silvio View dated 10/19/2017; Chest Pa And Lat (2 Views) dated 08/22/2017 FINDINGS: Portable technique limits examination quality. Mild to moderate bilateral pulmonary opacities are present probably representing pulmonary edema. The heart is upper normal size with a single lead pacer/defibrillator device. Right-sided venous cathete r tip in the SVC.Trace pleural fluid. IMPRESSION: Mild to moderate CHF versus volume overload pattern.
[2018-01-27 21:12] LABS: ALT/SGPT 23 U/L (12-78); AST/SGOT 21 U/L (15-37); Albumin 3.6 g/dL (3.4-5.0); Alkaline Phosphatase 152 U/L (45-117); BUN Blood Urea Nitrogen 35 mg/dL (7-18); Bicarbonate 26 mmol/L (21-32); Bilirubin Direct 0.1 mg/dL (0-0.2); Bilirubin Total 0.5 mg/dL (0.2-1.0); Glucose Level 81 mg/dL (74-106); Lipase 210 U/L (73-393); NT PRO-BNP 1965 pg/mL (<125); Protein, Total 7.2 g/dL (6.4-8.2); Sodium Level 141 mmol/L (136-145); Troponin (Emerg Dept Use Only) < 0.02 ng/mL (0.0-0.045)
[2018-01-27] MEDS ORDERED: FUROSEMIDE 40 MG/4 ML VIAL ONE (22:19)
[2018-01-27] MEDS ORDERED: MAGNESIUM HYDROXIDE 8% 30 ML PO PRN (22:47)
[2018-01-27] MEDS ORDERED: ONDANSETRON 4 MG/2 ML VIAL IV PRN (22:47)
[2018-01-27] MEDS ORDERED: ACETAMINOPHEN 500 MG TAB PO PRN (22:47)
--- NOTE | 2018-01-27 22:51 | EDPHYS ---
Physician Documentation [facility] Name: Pretty Sahni Age: 67 yrs Sex: Female : 1950 Arrival Date: 01/27/2018 Time: 20:10 Bed 27 Private MD: ED Physician Charly Jackson HPI: 01/27 20:50 This 67 yrs old Female presents to ER via Wheelchair with complaints of rn Shortness Of Breath. 20:50 The patient has shortness of breath at rest, with light activity. Onset: The rn symptoms/episode began/occurred 2 day(s) ago. Duration: The symptoms are intermittent. The patient's shortness of breath is aggravated by exertion, light activity, supine position, talking, walking. Severity of symptoms: At their worst the symptoms were mild in the emergency department the symptoms are unchanged. The patient has experienced similar episodes in the past. Recently seen here, reports identical symptoms but worse today, + sob and lUQ abd pain, states normal ct abdomen 2 days ago, has frequently, no fever, + cough, got better 2 days ago with lasix and has been doubling up her lasix at home. + feet swelling and OCONNELL.. Historical: - Allergies: 20:13 KETAMINE; aj1 20:13 Lisinopril; aj1 - Home Meds: 20:13 allopurinol 300 mg Oral tab 1 tab once daily [Active]; Belsomra 10 mg Oral tab 1 tab aj1 bedtime prn [Active]; citalopram 40 mg tab 1 tab once daily [Active]; citalopram 40 mg tab 1 tab once daily [Active]; clonazepam 1 mg Oral tab TID prn [Active]; digoxin 125 mcg Oral tab 1 tab once daily [Active]; hydrocodone-acetaminophen 7.5-325 mg Oral tab BID for Pain [Active]; Jentadueto 2.5-1,000 mg Oral tab 2 times per day [Active]; Lasix 40 mg Oral tab 2 times per day [Active]; levothyroxine 50 mcg tab 1 tab once daily [Active]; magnesium oxide 400 mg Oral cap daily [Active]; omeprazole 20 mg Oral cpDR 1 cap once daily [Active]; pravastatin 40 mg Oral tab 1 tab nightly [Active]; spironolactone 25 mg Oral tab 1 tab once daily [Active]; trazodone 50 mg Oral tab 1 tab at bedtime [Active]; Xarelto 20 mg Oral tab 1 tab once daily [Active]; - PMHx: 20:13 Anxiety; CHF; COPD; Depression; Diabetes - NIDDM; Fibromyalgia; Gout; Hypothyroidism; aj1 - Immunization history:: Flu vaccine is up to date. - Social history:: Smoking status: Patient/guardian denies using tobacco. - Ebola Screening: : Patient denies travel to an Ebola-affected area in the 21 days before illness onset. - Family history:: not pertinent. - Hospitalizations: : No recent hospitalization is reported. ROS: 20:50 Constitutional: Negative for fever, chills, and weight loss, Eyes: Negative for injury, rn pain, redness, and discharge, Neck: Negative for injury, pain, and swelling, Cardiovascular: Negative for chest pain, palpitations, + edema Respiratory: + sob Abdomen/GI: + LUQ abd pain and constipation MS/Extremity: Negative for injury and deformity, Skin: Negative for injury, rash, and discoloration, Neuro: Negative for headache, weakness, numbness, tingling, and seizure. Exam: 20:50 Constitutional: This is a well developed, well nourished patient who is awake, alert, rn + mild to moderate tachypnea Head/Face: Normocephalic, atraumatic. Eyes: Pupils equal round and reactive to light, extra-ocular motions intact. Lids and lashes normal. Conjunctiva and sclera are non-icteric and not injected. Cornea within normal limits. Periorbital areas with no swelling, redness, or edema. Neck: Trachea midline, no thyromegaly or masses palpated, and no cervical lymphadenopathy. Supple, full range of motion without nuchal rigidity, or vertebral point tenderness. No Meningismus. Cardiovascular: Regular rate and rhythm with a normal S1 and S2. No gallops, murmurs, or rubs. Normal PMI, no JVD. No pulse deficits. Respiratory: + tachypnea without retractions, speaking 5-6 word sentences, + diminished at bases with some wheezing Abdomen/GI: soft, mild LUQ tenderness, no rebound, no masses, non-distended MS/ Extremity: Pulses equal, no cyanosis. 2+ non-pitting edema bilateral lower ext with LLE> RLE circumference Neuro: Awake and alert, GCS 15, oriented to person, place, time, and situation. Cranial nerves II-XII grossly intact. Vital Signs: 20:13 BP 103 / 69; Pulse 97; Resp 24; Temp 97.0; Pulse Ox 100% on R/A; Weight 95.25 kg (R); aj1 Height 5 ft. 2 in. (157.48 cm) (R); Pain 7/10; 21:00 BP 101 / 58; Pulse 97; Resp 23 S; Pulse Ox 97% on R/A; rv 01/28 00:37 BP 108 / 66; Pulse 86; Resp 17; Pulse Ox 100% on R/A; rv 01/27 20:13 Body Mass Index 38.41 (95.25 kg, 157.48 cm) aj1 MDM: 01/27 20:17 Patient medically screened. rn 22:49 Differential diagnosis: CHF exacerbation, pneumonia, Pneumothorax pulmonary edema. Data rn reviewed: vital signs, nurses notes, lab test result(s), EKG, radiologic studies, plain films, and as a result, I will admit patient. Counseling: I had a detailed discussion with the patient and/or guardian regarding: the historical points, exam findings, and any diagnostic results supporting the discharge/admit diagnosis, lab results, radiology results, the need for further work-up and treatment in the hospital. Response to treatment: the patient's symptoms have mildly improved after treatment. Admission orders: after a detailed discussion of the patient's condition and case, the admit orders are written by me. ED course: Notified Dr. Torres of admit.. 01/28 20: Order name: Blood Culture Adult (2) rn 01/28 20: Order name: BMP; Complete Time: : rn 01/28 20: Order name: CBC with Diff; Complete Time: 21: rn 01/28 20: Order name: Hepatic Function; Complete Time: : rn 01/28 20: Order name: Lipase; Complete Time: : rn 01/28 20: Order name: NT PRO-BNP; Complete Time: : rn 01/28 20: Order name: XRAY CXR (1 view); Complete Time: 21:10 rn 01/28 20: Order name: Troponin (emerg Dept Use Only); Complete Time: : rn 01/27 20: Order name: EKG; Complete Time: : rn 01/28 20: Order name: Cardiac monitoring; Complete Time: : rn 01/28 20: Order name: EKG - Nurse/Tech rn 01/28 20: Order name: IV Saline Lock; Complete Time: : rn 01/27 20: Order name: Labs collected and sent; Complete Time: : rn 01/28 20: Order name: O2 Per Protocol; Complete Time: : rn 01/27 20: Order name: O2 Sat Monitoring; Complete Time: :24 rn Administered Medications: 21:00 Drug: SOLU-Medrol 125 mg Route: IVP; Site: left forearm; rv 01/28 00:36 Follow up: Response: No adverse reaction rv 01/27 21:00 Drug: Xopenex (3) 1.25 mg Route: Inhalation; rv 01/28 00:36 Follow up: Response: Wheezing diminished rv 01/27 21:00 Drug: TORadol 30 mg Route: IVP; Site: left forearm; rv 01/28 00:36 Follow up: Response: Pain is decreased rv 01/27 22:15 Drug: Lasix 40 mg Route: IVP; Site: left forearm; rv 01/28 00:36 Follow up: Response: No adverse reaction rv Disposition: 01/27/18 22:50 Hospitalization ordered by Zunilda Torres for Observation. Preliminary diagnosis are Pulmonary edema, Chest pain, unspecified, Unspecified combined systolic (congestive) and diastolic (congestive) heart failure. - Bed requested for Telemetry/MedSurg (observation). - Status is Observation. rv - Condition is Stable. - Problem is an acute exacerbation. - Symptoms have improved. UTI on Admission? No Signatures: Dispatcher [employer] EDAni Chase RN RN Jenae Ware RN Charly Torres MD MD rn Vicente, Ronaldo, RN RN rv Corrections: (The following items were deleted from the chart) 01/27 20:53 20:50 Constitutional: This is a well developed, well nourished patient who is awake, rn alert, + mild to moderate tachypnea Head/Face: Normocephalic, atraumatic. Eyes: Pupils equal round and reactive to light, extra-ocular motions intact. Lids and lashes normal. Conjunctiva and sclera are non-icteric and not injected. Cornea within normal limits. Periorbital areas with no swelling, redness, or edema. Neck: Trachea midline, no thyromegaly or masses palpated, and no cervical lymphadenopathy. Supple, full range of motion without nuchal rigidity, or vertebral point tenderness. No Meningismus. Cardiovascular: Regular rate and rhythm with a normal S1 and S2. No gallops, murmurs, or rubs. Normal PMI, no JVD. No pulse deficits. Respiratory: + tachypnea without retractions, speaking 5-6 word sentences, + diminished at bases with some wheezing Abdomen/GI: soft, mild LUQ tenderness, no rebound, no masses, non-distended MS/ Extremity: Pulses equal, no cyanosis. 2+ non-pitting edema bilateral lower ext with LLE> RLE circumference Neuro: Awake and alert, GCS 15, oriented to person, place, time, and situation. Cranial nerves II-XII grossly intact. Motor strength 5/5 in all extremities. Sensory grossly intact. Cerebellar exam normal. Normal gait. rn 22:55 22:50 Hospitalization Ordered by Zunilda Torres MD for Observation. Preliminary mw diagnosis is Pulmonary edema; Chest pain, unspecified; Unspecified combined systolic (congestive) and diastolic (congestive) heart failure. Bed requested for Telemetry/MedSurg (observation). Status is Observation. Condition is Stable. Problem is an acute exacerbation. Symptoms have improved. UTI on Admission? No. rn 01/28 00:38 01/27 22:55 01/27/2018 22:50 Hospitalization Ordered by Zunilda Torres MD for rv Observation. Preliminary diagnosis is Pulmonary edema; Chest pain, unspecified; Unspecified combined systolic (congestive) and diastolic (congestive) heart failure. Bed requested for Telemetry/MedSurg (observation). Status is Observation. Condition is Stable. Problem is an acute exacerbation. Symptoms have improved. UTI on Admission? No. mw
--- NOTE | 2018-01-27 22:51 | ER ---
Nurse's Notes [facility] Name: Pretty Sahni Age: 67 yrs Sex: Female : 1950 Arrival Date: 01/27/2018 Time: 20:10 Bed 27 Private MD: Diagnosis: Pulmonary edema;Chest pain, unspecified;Unspecified combined systolic (congestive) and diastolic (congestive) heart failure Presentation: 01/27 20:10 Presenting complaint: Patient states: Shortness of breath for the past 45 minutes. She aj1 was seen in this ER 2 days ago for the same complaint. Patient states they gave her some IV Lasix and that helped her shortness of breath. Patient reports an increase in swelling to her ankles and feet. Transition of care: patient was not received from another setting of care. Onset of symptoms was January 27, 2018. Risk Assessment: Do you want to hurt yourself or someone else? Patient reports no desire to harm self or others. Initial Sepsis Screen: Does the patient meet any 2 criteria? RR > 20 per min. Does the patient have a suspected source of infection? No. Patient's initial sepsis screen is negative. Care prior to arrival: None. 20:10 Method Of Arrival: Wheelchair aj1 20:10 Acuity: MARK 3 aj1 Triage Assessment: 20:13 General: Appears uncomfortable, Behavior is cooperative, anxious. Pain: Complains of aj1 pain in diaphragm Pain currently is 7 out of 10 on a pain scale. Neuro: Level of Consciousness is awake, alert, obeys commands. Cardiovascular: Patient's skin is warm and dry. Respiratory: Reports shortness of breath at rest Airway is patent Respiratory effort is even, unlabored, Respiratory pattern is regular, symmetrical, Onset: The symptoms/episode began/occurred just prior to arrival, the patient has mild shortness of breath. Historical: - Allergies: 20:13 KETAMINE; aj1 20:13 Lisinopril; aj1 - Home Meds: 20:13 allopurinol 300 mg Oral tab 1 tab once daily [Active]; Belsomra 10 mg Oral tab 1 tab aj1 bedtime prn [Active]; citalopram 40 mg tab 1 tab once daily [Active]; citalopram 40 mg tab 1 tab once daily [Active]; clonazepam 1 mg Oral tab TID prn [Active]; digoxin 125 mcg Oral tab 1 tab once daily [Active]; hydrocodone-acetaminophen 7.5-325 mg Oral tab BID for Pain [Active]; Jentadueto 2.5-1,000 mg Oral tab 2 times per day [Active]; Lasix 40 mg Oral tab 2 times per day [Active]; levothyroxine 50 mcg tab 1 tab once daily [Active]; magnesium oxide 400 mg Oral cap daily [Active]; omeprazole 20 mg Oral cpDR 1 cap once daily [Active]; pravastatin 40 mg Oral tab 1 tab nightly [Active]; spironolactone 25 mg Oral tab 1 tab once daily [Active]; trazodone 50 mg Oral tab 1 tab at bedtime [Active]; Xarelto 20 mg Oral tab 1 tab once daily [Active]; - PMHx: 20:13 Anxiety; CHF; COPD; Depression; Diabetes - NIDDM; Fibromyalgia; Gout; Hypothyroidism; aj1 - Immunization history:: Flu vaccine is up to date. - Social history:: Smoking status: Patient/guardian denies using tobacco. - Ebola Screening: : Patient denies travel to an Ebola-affected area in the 21 days before illness onset. - Family history:: not pertinent. - Hospitalizations: : No recent hospitalization is reported. Screenin:32 Abuse screen: Denies threats or abuse. Denies injuries from another. Nutritional rv screening: No deficits noted. Tuberculosis screening: No symptoms or risk factors identified. Fall Risk None identified. Assessment: 20:30 General: Appears uncomfortable, Behavior is calm, cooperative. rv 20:30 Pain: Denies pain. Neuro: Level of Consciousness is awake, alert, obeys commands, rv Oriented to person, place, time, situation. Cardiovascular: Rhythm is regular. Respiratory: Airway is patent Breath sounds with wheezes bilaterally. GI: No signs and/or symptoms were reported involving the gastrointestinal system. : No signs and/or symptoms were reported regarding the genitourinary system. EENT: No signs and/or symptoms were reported regarding the EENT system. Derm: Skin is intact. Musculoskeletal: No signs and/or symptoms reported regarding the musculoskeletal system. 21:34 Reassessment: Patient appears in no apparent distress at this time. Patient and/or rv family updated on plan of care and expected duration. Pain level reassessed. Patient is alert, oriented x 3, equal unlabored respirations, skin warm/dry/pink. 22:30 Reassessment: Patient appears in no apparent distress at this time. Patient and/or rv family updated on plan of care and expected duration. Pain level reassessed. Patient is alert, oriented x 3, equal unlabored respirations, skin warm/dry/pink. Vital Signs: 20:13 BP 103 / 69; Pulse 97; Resp 24; Temp 97.0; Pulse Ox 100% on R/A; Weight 95.25 kg (R); aj1 Height 5 ft. 2 in. (157.48 cm) (R); Pain 7/10; 21:00 BP 101 / 58; Pulse 97; Resp 23 S; Pulse Ox 97% on R/A; rv 01/28 00:37 BP 108 / 66; Pulse 86; Resp 17; Pulse Ox 100% on R/A; rv 01/27 20:13 Body Mass Index 38.41 (95.25 kg, 157.48 cm) aj1 ED Course: 01/27 20:10 Patient arrived in ED. aj1 20:12 Triage completed. aj1 20:13 Arm band placed on Patient placed in an exam room. aj1 20:17 Charly Jackson MD is Attending Physician. rn 20:43 X-ray completed. Portable x-ray completed in exam room. Patient tolerated procedure kp1 well. 20:45 XRAY CXR (1 view) In Process Unspecified. EDMS 21:00 Patient has correct armband on for positive identification. Bed in low position. Call rv light in reach. Side rails up X 1. 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 Pulse ox on. NIBP on. 21:00 Inserted saline lock: 22 gauge in left forearm, using aseptic technique. Blood rv collected. 21:00 Initial lab(s) drawn, by me, sent to lab. rv 22:50 Zunilda Torres MD is Hospitalizing Provider. rn 01/28 00:37 Patient admitted, IV remains in place. intact. rv 00:37 No provider procedures requiring assistance completed. rv Administered Medications: 01/27 21:00 Drug: SOLU-Medrol 125 mg Route: IVP; Site: left forearm; rv 01/28 00:36 Follow up: Response: No adverse reaction rv 01/27 21:00 Drug: Xopenex (3) 1.25 mg Route: Inhalation; rv 01/28 00:36 Follow up: Response: Wheezing diminished rv 01/27 21:00 Drug: TORadol 30 mg Route: IVP; Site: left forearm; rv 01/28 00:36 Follow up: Response: Pain is decreased rv 01/27 22:15 Drug: Lasix 40 mg Route: IVP; Site: left forearm; rv 01/28 00:36 Follow up: Response: No adverse reaction rv Outcome: 01/27 22:50 Decision to Hospitalize by Provider. rn 01/28 00:37 Admitted to Tele accompanied by nurse, via wheelchair, room 409, with chart, Report rv called to emery KLINE Condition: good Instructed on the need for admit. 00:38 Patient left the ED. rv Signatures: Dispatcher [employer] Ani Keller, RN RN aj1 Charly Jackson MD MD rn Poole, Kathy kp1 Marcos Chamberlain RN RN rv
[2018-01-28] MEDS ORDERED: TRAZODONE 150 MG TAB PO PRN (01:08)
[2018-01-28] MEDS ORDERED: HYDROCODONE/APAP 7.5/325 MG TAB PO PRN (01:19)
[2018-01-28 05:19] LABS: Absolute Lymphocytes (CBC) 0.7 K/uL (0.7-4.9); Absolute Monocytes 0.1 K/uL (0.1-1.3); Absolute Neutrophil 4.6 K/uL (1.8-8.0); Basophils % 0.3 % (0-1.3); Eosinophils % 0.1 % (0-4.4); Hematocrit 34.5 % (36.0-45.0); Lymphocytes % 12.5 % (15.3-44.8); MCH 30.7 pg (27.0-35.0); MPV 8.3 fL (7.6-11.3); Monocytes % 1.2 % (3.3-12.3); RBC Red Blood Cell Count 3.84 M/uL (3.86-4.86)
[2018-01-28 05:39] LABS: ALT/SGPT 19 U/L (12-78); AST/SGOT 18 U/L (15-37); Albumin 3.2 g/dL (3.4-5.0); Alkaline Phosphatase 132 U/L (45-117); BUN Blood Urea Nitrogen 39 mg/dL (7-18); Bicarbonate 27 mmol/L (21-32); Bilirubin Total 0.4 mg/dL (0.2-1.0); Glucose Level 152 mg/dL (74-106); Magnesium 2.4 mg/dL (1.8-2.4); NT PRO-BNP 2962 pg/mL (<125); Phosphorus 3.7 mg/dL (2.5-4.9); Potassium 4.2 mmol/L (3.5-5.1); Protein, Total 6.5 g/dL (6.4-8.2); Sodium Level 139 mmol/L (136-145); Troponin I < 0.02 ng/mL (0.0-0.045)
[2018-01-28] MEDS: FUROSEMIDE 40 MG/4 ML VIAL IV SCH ×4 (06:00→17:00)
[2018-01-28] MEDS ORDERED: ALBUMIN HUMAN 25% 100 ML IV ONE ×2 (06:30→14:00)
[2018-01-28] MEDS: LEVOTHYROXINE SOD 0.05 MG TABLET PO SCH (06:34)
[2018-01-28 06:43] LABS: Blood Morphology Comment NOT SEEN (NOT SEEN); Platelet Estimate ADEQ
[2018-01-28 06:58] LABS: Urine Appearance CLEAR; Urine Bilirubin NEGATIVE (NEG); Urine Blood NEGATIVE (NEG); Urine Color YELLOW; Urine Glucose NEGATIVE (NEG); Urine Protein NEGATIVE (NEG); Urine Urobilinogen 0.2 mg/dL (0.2-1.0)
[2018-01-28 07:01] LABS: Urine Microscopic Reflex ORDER UMIC
[2018-01-28 07:19] LABS: Urine Bacteria NONE SEEN /HPF (<20); Urine Culture Reflex Order NOT NEEDED; Urine RBC <5 /HPF (NONE SEEN)
[2018-01-28] MEDS: CITALOPRAM 10 MG TABLET PO SCH (08:23)
[2018-01-28] MEDS: clonazePAM 0.5 MG TAB PO SCH ×3 (08:24→20:52)
[2018-01-28] MEDS: RIVAROXABAN 10 MG TABLET PO SCH (08:24)
[2018-01-28] MEDS: ALLOPURINOL 300 MG TAB PO SCH (08:24)
[2018-01-28] MEDS: BUSPIRONE HCL 5 MG TABLET PO SCH ×2 (08:24→20:53)
[2018-01-28] MEDS: SPIRONOLACTONE 25 MG TABLET PO SCH ×2 (09:00→16:42)
[2018-01-28] MEDS ORDERED: ENOXAPARIN 40 MG/0.4 ML SQ SCH ×3 (09:00)
[2018-01-28] MEDS ORDERED: METOPROLOL TAR 50 MG TAB PO SCH (09:00)
--- NOTE | 2018-01-28 13:18 | P.HP ---
Certification for Inpatient Patient admitted to: Inpatient With expected LOS: >2 Midnights Patient will require the following post-hospital care: None Practitioner: I am a practitioner with admitting privileges, knowledge of patient current condition, hospital course, and medical plan of care. Services: Services provided to patient in accordance with Admission requirements found in Title 42 Section 412.3 of the Code of Federal Regulations Patient History Date of Service: 01/27/18 Reason for admission: CHF exacerbation History of Present Illness: patient is a 67-year-old female who was admitted to the hospital with shortness of breath. Patient states she has been having shortness of breath the last few days. He came into the ER few days ago and was given Lasix. She states she lost about 10 lb at that time. However, the fluid reaccumulated and she became short of breath once again. She came to the hospital and her chest x -ray revealed pulmonary edema. Patient was admitted to the hospital for further workup. Patient will be diuresed and will evaluate patient a little bit more thoroughly at this time. She will need observation for congestive heart failure. She has anasarca with generalized edema throughout. Continue with current plan of care. Allergies ketamine Allergy (Intermediate, Verified 12/16/17 09:19) severe hallucinations lisinopril Allergy (Intermediate, Verified 12/16/17 09:19) kidney failure-had to go on short term dialysis Home Medications: Citalopram [Celexa*] 40 mg PO DAILY 09/09/15 Levothyroxine [Synthroid*] 50 mcg PO [id number] 09/09/15 Trazodone HCl [Desyrel] 150 mg PO BEDTIME 11/16/15 Furosemide [Lasix] 40 mg PO BIDL #60 tab 08/22/17 Sacubitril/Valsartan [Entresto 24 mg-26 mg Tablet] 1 tab PO BID #60 tab Albuterol Sulfate [Proair Hfa] 2 puff IH Q4HP PRN 12/16/17 Allopurinol [Zyloprim] 300 mg PO DAILY 12/16/17 Atorvastatin Calcium [Lipitor] 80 mg PO BEDTIME 12/16/17 Bifidobacterium Infantis [Align] 4 mg PO DAILY 12/16/17 Buspirone HCl [Buspar] 7.5 mg PO BID 12/16/17 Carvedilol Phosphate [Carvedilol ER] 10 mg PO DAILY 12/16/17 Cetirizine HCl [Zyrtec] 10 mg PO DAILY 12/16/17 Docusate Sodium 100 mg PO BID 12/16/17 Fluticasone [Flonase 50mcg Nasal [place]] 2 sprays NS DAILY 12/16/17 Glipizide [Glipizide Xl] 5 mg PO BID 12/16/17 Linaclotide [Linzess] 290 mcg PO BEDTIME 12/16/17 Magnesium Oxide [Mag 0X Tab] 400 mg PO DAILY 12/16/17 Montelukast [Singulair] 10 mg PO BEDTIME 12/16/17 Pantoprazole [Protonix Tab] 40 mg PO DAILY 12/16/17 Pregabalin [Lyrica] 75 mg PO BID 12/16/17 Rivaroxaban [Xarelto] 20 mg PO DAILY 12/16/17 Semaglutide [Ozempic] 0.5 mg SQ EVERY 7TH DAY 12/16/17 Spironolactone [Aldactone] 12.5 mg PO DAILY 12/16/17 clonazePAM [Clonazepam] 0.5 mg PO TID 12/16/17 Cyclobenzaprine [Flexeril*] 5 mg PO BEDTIME 01/28/18 Hydrocodone Bit/Acetaminophen [Hydrocodon-Acetaminoph 7.5-325] 1 tab PO BID Ondansetron HCl [Zofran] 4 mg PO TID PRN 01/28/18 - Past Medical/Surgical History Has patient received pneumonia vaccine in the past: Yes Diabetic: Yes -: NIDDM -: Gout -: Anxiety -: Depression -: Hypothyroidism -: COPD -: CHF -: fibromyalgia -: Hysterectomy -: Rt heel -removal of bone spur -: Tubal ligation -: Tawnya-cath -: Defibrillator -: tonsillectomy - Family History Father Medical History: Heart disease, Cancer Mother Medical History: Heart disease, Diabetes - Social History Smoking Status: Never smoker Alcohol use: No CD- Drugs: No Caffeine use: Yes Place of Residence: Home Review of Systems 10-point ROS is otherwise unremarkable Physical Examination - Vital Signs Temperature: 97.0 F Blood Pressure: 100/60 Pulse: 87 Respirations: 18 Pulse Ox (%): 99 - Physical Exam General: Alert, In no apparent distress, Oriented x3 HEENT: Atraumatic, PERRLA, Mucous membr. moist/pink, EOMI, Sclerae nonicteric Neck: Supple, 2+ carotid pulse no bruit, No LAD, Without JVD or thyroid abnormality Respiratory: Clear to auscultation bilaterally, Normal air movement Cardiovascular: Regular rate/rhythm, Normal S1 S2, Systolic murmur Gastrointestinal: Normal bowel sounds, Soft and benign, Non-distended, No tenderness Musculoskeletal: No clubbing, No tenderness, Swelling Integumentary: No rashes Neurological: Normal gait, Normal speech, Normal strength at 5/5 x4 extr, Normal tone, Sensation intact, Cranial nerves 3-12 intact, Normal affect Lymphatics: No axilla or inguinal lymphadenopathy - Studies Laboratory Data (last 24 hrs) 01/27/18 20:40: WBC 7.3 D, Hgb 12.6, Hct 38.0, Plt Count 183 01/27/18 20:40: Sodium 141, Potassium 4.0, BUN 35 H, Creatinine 1.20, Glucose 81 , Total Bilirubin 0.5, AST 21, ALT 23, Alkaline Phosphatase 152 H, Lipase 210 Assessment & Plan - Problems (Diagnosis) (1) Acute on chronic systolic (congestive) heart failure Current Visit: No Status: Acute (2) Atrial fibrillation Onset Date: 11/25/15 Current Visit: No Status: Chronic Qualifiers: (3) Diabetes Onset Date: 09/10/15 Current Visit: No Status: Chronic Qualifiers: (4) Dyslipidemia Onset Date: 09/10/15 Current Visit: No Status: Chronic (5) HTN (hypertension) Onset Date: 11/25/15 Current Visit: No Status: Chronic Qualifiers: - Plan 1. Review Echocardiogram 2. Monitor volume status closely; may need to add additional diuretics 3. Continue cardiac meds including low dose Beta evangelist 4. Cardiology consultation 5. Aggressive diuresis 6. Strict I's and O's 7. Repeat CXR 8. Daily weights 9. Education regarding diet and treatment of congestive heart failure Discharge Plan: Home Plan to discharge in: Greater than 2 days - Advance Directives Does patient have a Living Will: No Does patient have a Durable POA for Healthcare: Yes - Code Status/Comfort Care Code Status Assessed: Yes Code Status: Full Code Critical Care: No Time Spent Managing PTS Care (In Minutes): 50
--- NOTE | 2018-01-28 15:06 | P.PN ---
Subjective Date of Service: 01/28/18 Chief Complaint: CHF exacerbation Patient seen and examined at bedside with RN. Chart reviewed. Case discussed with cardiology. Currently patient's blood pressure is on the lower and thus Lasix and spironolactone was held this morning. Patient still complains of having swelling in her of fluid high bilateral upper extremity Review of Systems 10-point ROS is otherwise unremarkable Physical Examination - Vital Signs Temperature: 97.0 F Blood Pressure: 100/60 Pulse: 87 Respirations: 18 Pulse Ox (%): 99 - Physical Exam General: Alert, In no apparent distress HEENT: Atraumatic, PERRLA, EOMI Neck: Supple, JVD not distended Respiratory: Clear to auscultation bilaterally, Normal air movement Cardiovascular: Regular rate/rhythm, Normal S1 S2, Edema Gastrointestinal: Normal bowel sounds, Tenderness Musculoskeletal: No tenderness Integumentary: No rashes Neurological: Normal speech, Normal tone, Normal affect Lymphatics: No axilla or inguinal lymphadenopathy - Studies Laboratory Data (last 24 hrs) 01/27/18 20:40: WBC 7.3 D, Hgb 12.6, Hct 38.0, Plt Count 183 01/27/18 20:40: Sodium 141, Potassium 4.0, BUN 35 H, Creatinine 1.20, Glucose 81 , Total Bilirubin 0.5, AST 21, ALT 23, Alkaline Phosphatase 152 H, Lipase 210 Medications List Reviewed: Yes Assessment And Plan - Current Problems (Diagnosis) (1) Acute on chronic systolic (congestive) heart failure Current Visit: No Status: Acute Plan: Acute CHF 2.2 to possible Diet noncompliance -IV lasix at this time -Restart Home medication -Albumin x2 now due to low BP -Hold Lopressor. (2) Atrial fibrillation Onset Date: 11/25/15 Current Visit: No Status: Chronic Qualifiers: Atrial fibrillation type: chronic (3) Diabetes Onset Date: 09/10/15 Current Visit: No Status: Chronic Qualifiers: Diabetes mellitus type: type 2 Diabetes mellitus halfway insulin use: without intermediate card tender use Diabetes mellitus complication status: without complication Qualified Code(s): E11.9 - Type 2 diabetes mellitus without complications (4) Dyslipidemia Onset Date: 09/10/15 Current Visit: No Status: Chronic (5) HTN (hypertension) Onset Date: 11/25/15 Current Visit: No Status: Chronic Qualifiers: Hypertension type: essential hypertension (6) Obesity (BMI 30-39.9) Current Visit: No Status: Chronic Discharge Plan: Home Plan to discharge in: 48 Hours - Code Status/Comfort Care Code Status Assessed: Yes Critical Care: No
[2018-01-28] MEDS ORDERED: TRAMADOL HCL 50 MG TAB PO ONE (18:19)
--- NOTE | 2018-01-28 19:27 | RAD REPORT ---
EXAM DESCRIPTION: RAD - Chest Pa And Lat (2 Views) - 01/28/2018 7:01 pm CLINICAL HISTORY: Chest pain COMPARISON: January 27 TECHNIQUE: PA and lateral views of the chest were obtained. FINDINGS: The lungs are normal volume. Diffuse interstitial opacification is again noted. Pattern is not substantially different from comparison. No new consolidation or mass. Left costophrenic angle b lunting has not changed. Right-sided Port-A-Cath and left-sided defibrillator remain in place. Hear t size is normal and central vasculature is within normal limits. No pneumothorax or enlarging pleur al effusion. No acute bony finding noted. No aortic abnormality. IMPRESSION: Diffusely prominent interstitial pattern. Pattern is similar or slightly improved from comparison.
[2018-01-28] MEDS: ATORVASTATIN 80 MG TAB PO SCH (20:52)
[2018-01-28] MEDS: PREGABALIN 75 MG CAP PO SCH (20:52)
[2018-01-28] MEDS: DOCUSATE NA 100 MG CAP PO SCH (20:52)
[2018-01-28] MEDS: SACUBITRIL/VALSARTAN 24/26 MG TAB PO SCH (20:52)
[2018-01-28] MEDS: MONTELUKAST 10 MG TAB PO SCH (20:53)
[2018-01-28] MEDS: TRAZODONE 150 MG TAB PO SCH (20:53)
[2018-01-29] MEDS: ALBUTEROL 2.5 MG/3 ML NEB SOL NEB PRN ×3 (03:35→16:11)
[2018-01-29] MEDS: FUROSEMIDE 40 MG/4 ML VIAL IV SCH ×2 (04:04→17:39)
[2018-01-29] MEDS: LEVOTHYROXINE SOD 0.05 MG TABLET PO SCH (06:13)
[2018-01-29] MEDS: DOCUSATE NA 100 MG CAP PO SCH ×2 (08:54→20:39)
[2018-01-29] MEDS: clonazePAM 0.5 MG TAB PO SCH ×3 (08:54→20:37)
[2018-01-29] MEDS: SPIRONOLACTONE 25 MG TABLET PO SCH (08:54)
[2018-01-29] MEDS: ALLOPURINOL 300 MG TAB PO SCH (08:55)
[2018-01-29] MEDS: BUSPIRONE HCL 5 MG TABLET PO SCH ×2 (08:55→20:37)
[2018-01-29] MEDS: CITALOPRAM 10 MG TABLET PO SCH (08:55)
[2018-01-29] MEDS: RIVAROXABAN 10 MG TABLET PO SCH (08:55)
[2018-01-29] MEDS: PREGABALIN 75 MG CAP PO SCH ×2 (08:55→20:39)
[2018-01-29] MEDS: SACUBITRIL/VALSARTAN 24/26 MG TAB PO SCH ×2 (08:55→20:39)
[2018-01-29] MEDS: PANTOPRAZOLE 40MG TABLET PO SCH (08:55)
--- NOTE | 2018-01-29 10:16 | CON ---
Brief History: A 67-year-old woman. Mrs. Sahni has a congestive cardiomyopathy, nonischemic. She gets out of control every year or 2 years. She works hard, tries to do a real good job of contro lling things. She has atrial fib. She has a defibrillator and the EF in the 30s. She always manage s to come to our hospital with inadequate therapy for congestive heart failure, but this is one time, when she lists Entresto as a medicine, she still takes. Medications: Outpatient medications have been Synthroid, Celexa, trazodone, Entresto, Lasix, Singula ir, Zyrtec, glipizide, albuterol, buspirone, clonazepam, Lyrica, docusate, magnesium oxide, Lipitor 8 0, allopurinol, Xarelto 20, Linzess, Coreg ER, spironolactone, Protonix, probiotic, Align, Flonase na charlene spray, Ozempic, Zofran, hydrocodone, and cyclobenzaprine. Those are outpatient medications. She was not having chest pain. She has been in the hospital, her breathing is very little better. A chest x-ray seems to indicate there may be some pulmonary, edema although mild. Allergies: SHE IS ALLERGIC TO KETAMINE AND LISINOPRIL. SHE DOES TOLERATE ENTRESTO VERY WELL. Physical Examination: Vital Signs: 5 feet 2 inches, weight 209 pounds. General: Anxious. Lungs: Basilar crackles. Heart: Within normal limits. Abdomen: Soft. Extremities: Normal. They are wrapped. Last night, the reports are that she had mild pedal edema. Treatment: Presently, she is getting Lasix IV, and she seems to be making a diuresis. I would recom mend we continue that. When she is diuresed, she could be sent back out for outpatient care. We karlene uld try to do an echocardiogram sometime in the near future. If she is here in Wednesday, we can do it then or if not then as an outpatient. BEN Voice ID: [id number] Report ID: [id number]
--- NOTE | 2018-01-29 15:50 | P.PN ---
Subjective Date of Service: 01/29/18 Chief Complaint: CHF exacerbation Patient seen and examined at bedside with RN. Chart reviewed. Case discussed with cardiology. Currently patient's blood pressure is on the lower and thus caution with Lasix and spironolactone. Patient still complains of having swelling in her of fluid high bilateral upper extremity. Patient's daughter called this morning requesting patient to get IV Ativan along with IV Dilaudid. Patient in respiratory distress. Patient's daughter inpatient values that patient needs to be judicial with opioid medication as a good causative of worsening of her respiratory failure Review of Systems 10-point ROS is otherwise unremarkable Physical Examination - Vital Signs Temperature: 97.1 F Blood Pressure: 105/64 Pulse: 99 Respirations: 18 Pulse Ox (%): 97 - Physical Exam General: Alert, In no apparent distress HEENT: Atraumatic, PERRLA, EOMI Neck: Supple, JVD not distended Respiratory: Normal air movement, Crackles/rales Cardiovascular: Regular rate/rhythm, Normal S1 S2 Gastrointestinal: Normal bowel sounds, Soft and benign, Non-distended, No tenderness Musculoskeletal: No tenderness Integumentary: No rashes Neurological: Normal speech, Normal tone, Normal affect Lymphatics: No axilla or inguinal lymphadenopathy - Studies Medications List Reviewed: Yes Assessment And Plan - Current Problems (Diagnosis) (1) Acute on chronic systolic (congestive) heart failure Current Visit: No Status: Acute Plan: Acute CHF 2.2 to possible Diet noncompliance and medication Noncompliance -IV lasix at this time. Will monitor for worsening. -Repeat Aden this AM - -Cardiology consulted. Reccs appreciated -DC home with no medication change -On Spironolactone will continue -Hold Lopressor due to Low BP (2) Atrial fibrillation Onset Date: 11/25/15 Current Visit: No Status: Chronic Qualifiers: Atrial fibrillation type: chronic (3) Diabetes Onset Date: 09/10/15 Current Visit: No Status: Chronic Qualifiers: Diabetes mellitus type: type 2 Diabetes mellitus intermediate insulin use: without local intermodal truck driver use Diabetes mellitus complication status: without complication Qualified Code(s): E11.9 - Type 2 diabetes mellitus without complications (4) Dyslipidemia Onset Date: 09/10/15 Current Visit: No Status: Chronic (5) HTN (hypertension) Onset Date: 11/25/15 Current Visit: No Status: Chronic Qualifiers: Hypertension type: essential hypertension (6) Obesity (BMI 30-39.9) Current Visit: No Status: Chronic Discharge Plan: Home Plan to discharge in: 48 Hours - Code Status/Comfort Care Code Status Assessed: Yes Critical Care: No
[2018-01-29] MEDS ORDERED: FUROSEMIDE 20 MG/ 2ML VIAL IV ONE (15:58)
--- NOTE | 2018-01-29 16:09 | RAD REPORT ---
EXAM DESCRIPTION: RAD - Chest Single View - 01/29/2018 3:41 pm CLINICAL HISTORY: Shortness of breath COMPARISON: January 28 TECHNIQUE: AP portable chest image was obtained 1527 hours . FINDINGS: Lung volumes are low. Patient has a baseline prominence of the interstitial markings. New hazy opacification is present in the lower left lung field. This is partially obscured by the defibri llator battery pack. Cardiomegaly is present and there is vascular engorgement. Right-sided Port-A-Ca th in place as well. No pneumothorax or large pleural effusion. No acute bony abnormality seen. No ac hansel aortic findings suspected. IMPRESSION: Suspected left lung base pneumonia. Shallow inspiration accentuates baseline cardiomegaly, vasculature and lung markings. Mild failure or volume overload can be masked.
[2018-01-29] MEDS: TRAZODONE 150 MG TAB PO SCH (20:39)
[2018-01-29] MEDS: ATORVASTATIN 80 MG TAB PO SCH (20:39)
[2018-01-29] MEDS: MONTELUKAST 10 MG TAB PO SCH (20:46)
[2018-01-30] MEDS: LEVOTHYROXINE SOD 0.05 MG TABLET PO SCH (05:00)
[2018-01-30 05:50] VITALS: BMI 39.6
[2018-01-30] MEDS: FUROSEMIDE 40 MG/4 ML VIAL IV SCH (08:47)
[2018-01-30] MEDS: DOCUSATE NA 100 MG CAP PO SCH (08:48)
[2018-01-30] MEDS: clonazePAM 0.5 MG TAB PO SCH (08:48)
[2018-01-30] MEDS: BUSPIRONE HCL 5 MG TABLET PO SCH (08:48)
[2018-01-30] MEDS: SACUBITRIL/VALSARTAN 24/26 MG TAB PO SCH (08:48)
[2018-01-30] MEDS: PREGABALIN 75 MG CAP PO SCH (08:48)
[2018-01-30] MEDS: PANTOPRAZOLE 40MG TABLET PO SCH (08:48)
[2018-01-30] MEDS: RIVAROXABAN 10 MG TABLET PO SCH (08:48)
[2018-01-30] MEDS: ALLOPURINOL 300 MG TAB PO SCH (08:49)
[2018-01-30] MEDS: SPIRONOLACTONE 25 MG TABLET PO SCH (08:49)
[2018-01-30] MEDS: CITALOPRAM 10 MG TABLET PO SCH (08:49)
--- NOTE | 2018-01-30 10:59 | PN ---
Ms. Sahni seems to be doing better. She has had some more diuresis. I think it would be fine t o get her to be discharged home today. She can follow up with me within the next month by calling my office for an appointment. BEN Voice ID: [id number] Report ID: [id number]
[2018-01-30 12:22] VITALS: BP 119/59; TEMP 97.4
[2018-01-30 13:10] VITALS: O2SAT 95
--- NOTE | 2018-01-30 14:05 | P.DS ---
Admission Date: 01/27/18 Discharge Date: 01/30/18 Disposition: ROUTINE DISCHARGE Discharge Condition: GOOD Reason for Admission: CHF exacerbation - Problems (1) Acute on chronic systolic (congestive) heart failure Status: Acute (2) Atrial fibrillation Onset Date: 11/25/15 Status: Chronic Qualifiers: Atrial fibrillation type: chronic (3) Diabetes Onset Date: 09/10/15 Status: Chronic Qualifiers: Diabetes mellitus type: type 2 Diabetes mellitus intermediate card tender insulin use: without snf use Diabetes mellitus complication status: without complication Qualified Code(s): E11.9 - Type 2 diabetes mellitus without complications (4) Dyslipidemia Onset Date: 09/10/15 Status: Chronic (5) HTN (hypertension) Onset Date: 11/25/15 Status: Chronic Qualifiers: Hypertension type: essential hypertension (6) Obesity (BMI 30-39.9) Status: Chronic Brief History of Present Illness: See HPI Hospital Course: Overall During the hospital stay pt remained stable Admitted to the hospital for CHF exacerbation due to noncompliance with diet and medication. Restarted on Low Na diet with fluids restriction. Cardiology consulted. Recommended IV Lasix here in the hospital. Pt had marked improvement in her breathing and swelling and thus was discharged home under stable condition Pt was educated extensively on Pain medication abuse and taking them as prescribed only. Pt demonstrated understanding but states she need to go see a different Pain mgmt doc. Pt was again educated on SE of opiates and the need to ensure taking medication as prescribed. Pt was discharged home under stable condition and asked to f/u with Cardiology, PCP and pain mgmt doc in 1 to 2 weeks post discharge. Vital Signs/Physical Exam: Temp Pulse Resp BP Pulse Ox 97.4 F 88 20 119/59 L 95 01/30/18 12:00 01/30/18 12:00 01/30/18 12:00 01/30/18 12:00 01/30/18 12:00 General: Alert, In no apparent distress HEENT: Atraumatic, PERRLA, EOMI Neck: Supple, JVD not distended Respiratory: Clear to auscultation bilaterally, Normal air movement Cardiovascular: Regular rate/rhythm, Normal S1 S2 Gastrointestinal: Normal bowel sounds, No tenderness Musculoskeletal: No tenderness Integumentary: No rashes Neurological: Normal speech, Normal tone, Normal affect Lymphatics: No axilla or inguinal lymphadenopathy Laboratory Data at Discharge: WBC 5.3 K/uL (4.3-10.9) D 01/28/18 04:54 Hgb 11.8 g/dL (12.0-15.0) L 01/28/18 04:54 Hct 34.5 % (36.0-45.0) L 01/28/18 04:54 Plt Count 164 K/uL (152-406) 01/28/18 04:54 Sodium 139 mmol/L (136-145) 01/28/18 04:54 Potassium 4.2 mmol/L (3.5-5.1) 01/28/18 04:54 BUN 39 mg/dL (7-18) H 01/28/18 04:54 Creatinine 1.40 mg/dL (0.55-1.3) H 01/28/18 04:54 Glucose 152 mg/dL (74-106) H 01/28/18 04:54 Phosphorus 3.7 mg/dL (2.5-4.9) 01/28/18 04:54 Magnesium 2.4 mg/dL (1.8-2.4) 01/28/18 04:54 Total Bilirubin 0.4 mg/dL (0.2-1.0) 01/28/18 04:54 AST 18 U/L (15-37) 01/28/18 04:54 ALT 19 U/L (12-78) 01/28/18 04:54 Alkaline Phosphatase 132 U/L (45-117) H 01/28/18 04:54 Troponin I < 0.02 ng/mL (0.0-0.045) 01/28/18 04:54 Lipase 210 U/L (73-393) 01/27/18 20:40 Home Medications: Citalopram [Celexa*] 40 mg PO DAILY 09/09/15 Levothyroxine [Synthroid*] 50 mcg PO [id number] 09/09/15 Trazodone HCl [Desyrel] 150 mg PO BEDTIME 11/16/15 Furosemide [Lasix*] 40 mg PO BIDL #60 tab 08/22/17 Sacubitril/Valsartan [Entresto 24 mg-26 mg Tablet] 1 tab PO BID #60 tab Albuterol Sulfate [Proair Hfa] 2 puff IH Q4HP PRN 12/16/17 Allopurinol [Zyloprim*] 300 mg PO DAILY 12/16/17 Atorvastatin Calcium [Lipitor] 80 mg PO BEDTIME 12/16/17 Bifidobacterium Infantis [Align] 4 mg PO DAILY 12/16/17 Buspirone HCl [Buspar*] 7.5 mg PO BID 12/16/17 Carvedilol Phosphate [Carvedilol ER] 10 mg PO DAILY 12/16/17 Cetirizine HCl [Zyrtec] 10 mg PO DAILY 12/16/17 Docusate Sodium 100 mg PO BID 12/16/17 Fluticasone [Flonase 50MCG Nasal [place]*] 2 sprays NS DAILY 12/16/17 Glipizide [Glipizide Xl] 5 mg PO BID 12/16/17 Linaclotide [Linzess] 290 mcg PO BEDTIME 12/16/17 Magnesium Oxide [Mag 0X*] 400 mg PO DAILY 12/16/17 Montelukast [Singulair*] 10 mg PO BEDTIME 12/16/17 Pantoprazole [Protonix Tab*] 40 mg PO DAILY 12/16/17 Pregabalin [Lyrica*] 75 mg PO BID 12/16/17 Rivaroxaban [Xarelto*] 20 mg PO DAILY 12/16/17 Semaglutide [Ozempic] 0.5 mg SQ EVERY 7TH DAY 12/16/17 Spironolactone [Aldactone*] 12.5 mg PO DAILY 12/16/17 clonazePAM [Clonazepam] 0.5 mg PO TID 12/16/17 Cyclobenzaprine [Flexeril*] 5 mg PO BEDTIME 01/28/18 Hydrocodone Bit/Acetaminophen [Hydrocodon-Acetaminoph 7.5-325] 1 tab PO BID Ondansetron HCl [Zofran] 4 mg PO TID PRN 01/28/18 Diet: Regular Activity: Ad chetan Followup: Larry Cowan MD [ACTIVE - CAN ADMIT] - (call to schedule appointment) Noé Jacobs MD [Primary Care Provider] - (call to schedule appointment)
== END 2018-01-30 12:59 | disposition home or self-care (01) ==
LOC: ER 20:08 → INTOOBSV 22:47 → ERHOLD 22:47 → 4TH 01-28 00:08
PROVIDERS: ADMIT Hospitalist; ATTEND Hospitalist
DX: I11.0 Hypertensive heart disease with heart failure (principal); I50.23 Acute on chronic systolic (congestive) heart failure; I48.2 Chronic atrial fibrillation; E11.9 Type 2 diabetes mellitus without complications; E78.5 Hyperlipidemia, unspecified; E66.9 Obesity, unspecified; Z68.39 Body mass index [BMI] 39.0-39.9, adult; Z91.14 Patient's other noncompliance with medication regimen; Z91.11 Patient's noncompliance with dietary regimen; Z95.810 Presence of automatic (implantable) cardiac defibrillator; E03.9 Hypothyroidism, unspecified
CPT/HCPCS: 36415; 71045 ×2; 71046; 80048; 80053; 80076; 83690; 83735; 83880 ×2; 84100; 84484 ×2; 85025 ×2; 87040 ×2; 87086 ×2; 87088 ×2; 87205; 96374; 96375; 99285; G0378 ×2; J1940 ×6; J2405; J2930; P9047 ×2; 81003; 81015

== ENCOUNTER 2018-02-02 14:00 | Emergency (ER) | payer OTHER ==
--- OUTSIDE RECORDS SUMMARY | 2018-02-02 14:04 | XMS REPORT | Clinical Summary ---
:1950 Author Organization [facility] Address [address] [place] [address] Care Team Providers Name Role Phone Noé [...] Not on file Implants Implanted Type Area Wellness Consultant Device Shelf Model / Identifier Expiration Serial / Date Lot Envlp Impl Crdvrtr Dfb Antbctrl Fully Resorb Lg Aigissrx R - [id number] Cardiovascular N/A: [employer] [id number] / Implanted: 04/24/2016 (Quantity not on file) Implants N/A / Visia Af Vr Device - [id number] CARDIAC DEFIB N/A: [employer] [id number] / Implanted: Qty: 1 on 04/24/2016 by Joss Solano Jr., MD N/A [employer] / Results Not on fileafter 02/01/2017 Insurance Payer Benefit Plan / Group Subscriber ID Type Phone Address MEDICARE MEDICARE PART A AND B xxxxxxxxxx Medicare [place], [place] Advance Directives Patient has advance care planning documents on file. For more information, please contact:[place] [address]
--- NOTE | 2018-02-02 15:46 | RAD REPORT ---
EXAM DESCRIPTION: RAD - Chest Single View - 02/02/2018 3:39 pm CLINICAL HISTORY: Chest pain, shortness of breath COMPARISON: January 29 TECHNIQUE: AP portable chest image was obtained 1533 hours . FINDINGS: No peripheral mass or consolidation. Lung markings are prominent but not clearly different . Vasculature is mildly prominent. Left lung base is better aerated. No measurable pleural effusion a nd no pneumothorax. No acute bony abnormality seen. No acute aortic findings suspected. IMPRESSION: Left base opacification has resolved or mostly resolved. Vasculature and lung markings are mildly prominent. Patient could have a minimal failure or volume ov erload component. The finding is not substantially different.
[2018-02-02 15:59] LABS: Absolute Lymphocytes (CBC) 2.1 K/uL (0.7-4.9); Absolute Monocytes 0.4 K/uL (0.1-1.3); Absolute Neutrophil 6.1 K/uL (1.8-8.0); Basophils % 0.8 % (0-1.3); Eosinophils % 1.9 % (0-4.4); Hematocrit 34.4 % (36.0-45.0); MCH 30.3 pg (27.0-35.0); MCV 90.5 fL (80-100); MPV 8.2 fL (7.6-11.3); Monocytes % 4.4 % (3.3-12.3); RBC Red Blood Cell Count 3.81 M/uL (3.86-4.86)
[2018-02-02 16:14] LABS: Protime INR 1.79
[2018-02-02] MEDS ORDERED: ONDANSETRON 4 MG/2 ML VIAL ONE (16:14)
[2018-02-02] MEDS ORDERED: LEVALBUTEROL 1.25 MG/3 ML NEB ONE (16:14)
[2018-02-02] MEDS ORDERED: FUROSEMIDE 40 MG/4 ML VIAL ONE (16:14)
[2018-02-02 16:19] LABS: ALT/SGPT 19 U/L (12-78); AST/SGOT 13 U/L (15-37); Albumin 3.4 g/dL (3.4-5.0); Alkaline Phosphatase 138 U/L (45-117); BUN Blood Urea Nitrogen 24 mg/dL (7-18); Bicarbonate 29 mmol/L (21-32); Bilirubin Direct 0.1 mg/dL (0-0.2); Bilirubin Total 0.3 mg/dL (0.2-1.0); Glucose Level 106 mg/dL (74-106); Magnesium 2.2 mg/dL (1.8-2.4); NT PRO-BNP 1079 pg/mL (<125); Potassium 3.5 mmol/L (3.5-5.1); Protein, Total 6.7 g/dL (6.4-8.2); Sodium Level 144 mmol/L (136-145); Troponin (Emerg Dept Use Only) < 0.02 ng/mL (0.0-0.045)
--- NOTE | 2018-02-02 18:24 | P.CNS ---
Date of Consult: 02/02/18 Reason for Consult: ER consultation Requesting Physician: Sharad Maldonado Primary Care Provider: Dr. Hitchcock; Cardiology-Dr. Cowan Chief Complaint: Shortness of breath, weight gain History of Present Illness: 67-year-old female presented to the emergency room with shortness of breath and increased weight gain. Patient was recently hospitalized 01/27-01/30/2018 for CHF exacerbation. Medications were adjusted. Strict diet and increase in her Lasix was recommended at that time. Overnight she reported an increase of weight of 9 lb. She reported some increasing shortness of breath. She came to the ER for further evaluation. In the ER room-air saturations were well in the normal range. Blood pressure stable. CBC unremarkable since previous with a hemoglobin of 11.5 and white count of 8.9. BMP unremarkable since last hospitalized with a sodium 144, potassium 3.5, BUN of 24, creatinine 1.0 with a GFR 54. BMP was improved since her last hospitalization at 1079. Troponin less than 0.02. The patient was given Lasix 40 mg IV in the emergency room. She was able to put out almost one liter of fluid. I was asked to assess the patient for possible admission. When I came to evaluate the patient see seemed very appropriate. She did not have any significant chest pain or shortness of breath at that time. She did not have any labored breathing. Patient reports that she has been increasing her fluid intake as of late. She has been taking Lasix 40 mg twice daily. At times she has been told to increase her Lasix to 80 mg twice daily. Over the last 3 days she has used Lasix 80 mg in the morning and 40 mg at night. Patient did not require BiPAP or oxygen in the ER. No significant edema noted upon evaluation. Patient breathing appropriately. Allergies ketamine Allergy (Intermediate, Verified 12/16/17 09:19) severe hallucinations lisinopril Allergy (Intermediate, Verified 12/16/17 09:19) kidney failure-had to go on short term dialysis Home medications list reviewed: Yes Home Medications: Citalopram [Celexa*] 40 mg PO DAILY 09/09/15 Levothyroxine [Synthroid*] 50 mcg PO [id number] 09/09/15 Trazodone HCl [Desyrel] 150 mg PO BEDTIME 11/16/15 Furosemide [Lasix*] 40 mg PO BIDL #60 tab 08/22/17 Sacubitril/Valsartan [Entresto 24 mg-26 mg Tablet] 1 tab PO BID #60 tab Albuterol Sulfate [Proair Hfa] 2 puff IH Q4HP PRN 12/16/17 Allopurinol [Zyloprim*] 300 mg PO DAILY 12/16/17 Atorvastatin Calcium [Lipitor] 80 mg PO BEDTIME 12/16/17 Bifidobacterium Infantis [Align] 4 mg PO DAILY 12/16/17 Buspirone HCl [Buspar*] 7.5 mg PO BID 12/16/17 Carvedilol Phosphate [Carvedilol ER] 10 mg PO DAILY 12/16/17 Cetirizine HCl [Zyrtec] 10 mg PO DAILY 12/16/17 Docusate Sodium 100 mg PO BID 12/16/17 Fluticasone [Flonase 50MCG Nasal [place]*] 2 sprays NS DAILY 12/16/17 Glipizide [Glipizide Xl] 5 mg PO BID 12/16/17 Linaclotide [Linzess] 290 mcg PO BEDTIME 12/16/17 Magnesium Oxide [Mag 0X*] 400 mg PO DAILY 12/16/17 Montelukast [Singulair*] 10 mg PO BEDTIME 12/16/17 Pantoprazole [Protonix Tab*] 40 mg PO DAILY 12/16/17 Pregabalin [Lyrica*] 75 mg PO BID 12/16/17 Rivaroxaban [Xarelto*] 20 mg PO DAILY 12/16/17 Semaglutide [Ozempic] 0.5 mg SQ EVERY 7TH DAY 12/16/17 Spironolactone [Aldactone*] 12.5 mg PO DAILY 12/16/17 clonazePAM [Clonazepam] 0.5 mg PO TID 12/16/17 Cyclobenzaprine [Flexeril*] 5 mg PO BEDTIME 01/28/18 Hydrocodone Bit/Acetaminophen [Hydrocodon-Acetaminoph 7.5-325] 1 tab PO BID Ondansetron HCl [Zofran] 4 mg PO TID PRN 01/28/18 - Past Medical/Surgical History Diabetic: Yes -: Diabetes mellitus type 2 [id number] -: Gout -: Depression with anxiety -: Hypothyroidism -: COPD -: Systolic congestive heart failure -: Atrial fibrillation, chronic anti coagulation -: Hyperlipidemia -: Chronic constipation -: Chronic pain -: Hysterectomy -: Rt heel -removal of bone spur -: Tubal ligation -: Tawnya-cath -: Defibrillator -: tonsillectomy Psychosocial/ Personal History: Patient is independent. - Family History Father Medical History: Heart disease, Cancer Mother Medical History: Heart disease, Diabetes - Social History Smoking Status: Never smoker Alcohol use: No CD- Drugs: No Caffeine use: Yes Place of Residence: Home Review of Systems General: As per HPI Eyes: Unremarkable ENT: Unremarkable Respiratory: Shortness of Breath, As per HPI Cardiovascular: Edema, As per HPI Gastrointestinal: Unremarkable Genitourinary: Unremarkable Musculoskeletal: Pedal edema, As per HPI Neurological: Unremarkable Lymphatics: Unremarkable Physical Examination General: Alert, In no apparent distress, Oriented x3, Cooperative HEENT: Atraumatic, Normocephalic, PERRLA, Mucous membr. moist/pink Neck: Supple, No Thyromegaly Respiratory: Clear to auscultation bilaterally, Normal air movement Cardiovascular: Normal pulses, Regular rate/rhythm Gastrointestinal: Normal bowel sounds, Soft and benign, Non-distended, No ascites, No tenderness, No masses, No rebound, No guarding Musculoskeletal: No contractures, No erythema, No tenderness, No warmth Integumentary: No erythema, No warmth, No cyanosis, Tenderness/swelling ( Nonpitting edema to the lower extremities bilateral) Neurological: Normal speech, Normal strength at 5/5 x4 extr, Normal tone, Normal affect Lymphatics: No axilla or inguinal lymphadenopathy Laboratory Data (last 24 hrs) 02/02/18 15:45: PT 21.2 H, INR 1.79 02/02/18 15:45: WBC 8.9 D, Hgb 11.5 L, Hct 34.4 L, Plt Count 202 D 02/02/18 15:45: Sodium 144, Potassium 3.5, BUN 24 H, Creatinine 1.00, Glucose 106, Magnesium 2.2, Total Bilirubin 0.3, AST 13 L, ALT 19, Alkaline Phosphatase 138 H Conclusions/Impression: Impression: Shortness of breath, edema to the lower extremities secondary to chronic systolic CHF Atrial fibrillation on chronic anti coagulation therapy Hypertension Diabetes mellitus type 2 non-insulin dependent Hypothyroidism Depression with anxiety Gout COPD Obesity Plan: Patient evaluated in the emergency room. Patient has received Lasix 40 mg IV with good output. Patient also received albuterol treatment. Patient does not require admission at this time. Room-air saturations within normal range. BMP improved since last hospitalization. CBC and BMP unremarkable since last hospitalization. Patient without any labored breathing. Patient seems to be appropriate for discharge from the emergency room. I will recommend to increase her Lasix to 80 mg 1 pill twice daily. She will need to continue with a 1500 cc per day fluid restriction and low-salt diet. Patient will continue with her other medications including Entresto 24/26 mg 1 pill twice daily, Aldactone 12.5 mg 1 pill daily, carvedilol ER 10 mg daily, Xarelto 20 mg 1 pill daily, levothyroxine 50 mcg daily, Lipitor 80 mg 1 pill daily, allopurinol 300 mg daily, magnesium oxide 400 mg daily, Lyrica 75 mg 1 pill twice daily, clonazepam 0.5 mg 1 pill 3 times a day, be use bar 7.5 mg 1 pill twice daily, trazodone 150 mg at night as needed for sleep, hydrocodone/ Flexeril as directed, glipizide 5 mg 1 pill twice daily, albuterol 2 puffs 3 times a day as needed for shortness of breath, Singulair 10 mg daily, and Zyrtec 10 mg 1 pill daily. Recommendations were addressed in detail with the patient. She will need to monitor her weight daily. If her weight increases by more than 5 lb she will need to contact her PCP or edi consultant for further recommendation and adjustment in medication. Patient previously on Lasix 40 mg 1 pill twice daily. Will recommend to continue with Lasix 80 mg 1 pill twice daily. As her weight decreases and her symptoms improve, then she can go from 80 mg 1 pill twice daily to possibly Lasix 40 mg twice daily, but this can be addressed by her PCP. Further adjustment in medication can be done by her PCP. Patient may require increase in Aldactone if worse as she only takes 12.5 mg daily. I will recommend that she follow up with her PCP in the next 24-48 hr. Care discussed at length with physician assistant fitness manager who saw the patient. Physician assistant fitness manager will continue with recommendations. Time Spent Managing Pts care (In Minutes): 55
--- NOTE | 2018-02-02 19:32 | EDPHYS ---
Physician Documentation [facility] Name: Pretty Sahni Age: 67 yrs Sex: Female : 1950 Arrival Date: 02/02/2018 Time: 14:03 Bed 27 Private MD: Noé Jacobs ED Physician Frantz Rasmussen HPI: 02/02 15:17 This 67 yrs old Female presents to ER via Ambulatory with complaints of jmm Shortness Of Breath. 15:17 The patient has shortness of breath with light activity. Onset: The symptoms/episode jmm began/occurred gradually. Duration: The symptoms are continuous. The patient's shortness of breath is aggravated by exertion. This is a 67 year old female that presents to the ED with shortness of breath worsening over the past 2 days. Patient states she has gained weight over the past day. Patient states doubling her lasix with no relief at home. . Historical: - Allergies: 14:21 KETAMINE; aj 14:21 Lisinopril; aj - Home Meds: 14:21 allopurinol 300 mg Oral tab 1 tab once daily [Active]; Belsomra 10 mg Oral tab 1 tab aj bedtime prn [Active]; citalopram 40 mg tab 1 tab once daily [Active]; clonazepam 1 mg Oral tab TID prn [Active]; digoxin 125 mcg Oral tab 1 tab once daily [Active]; hydrocodone-acetaminophen 7.5-325 mg Oral tab BID for Pain [Active]; Jentadueto 2.5-1,000 mg Oral tab 2 times per day [Active]; Lasix 40 mg Oral tab 2 times per day [Active]; levothyroxine 50 mcg tab 1 tab once daily [Active]; omeprazole 20 mg Oral cpDR 1 cap once daily [Active]; magnesium oxide 400 mg Oral cap daily [Active]; pravastatin 40 mg Oral tab 1 tab nightly [Active]; spironolactone 25 mg Oral tab 1 tab once daily [Active]; trazodone 50 mg Oral tab 1 tab at bedtime [Active]; Xarelto 20 mg Oral tab 1 tab once daily [Active]; - PMHx: 14:21 Anxiety; CHF; COPD; Depression; Diabetes - NIDDM; Fibromyalgia; Gout; Hypothyroidism; aj - PSHx: 14:21 Tonsillectomy; Tubal ligation; Hysterectomy; Defibrillator; aj - Immunization history:: Adult Immunizations up to date. - Social history:: Smoking status: Patient/guardian denies using tobacco. - Ebola Screening: : Patient negative for fever greater than or equal to 101.5 degrees Fahrenheit, and additional compatible Ebola Virus Disease symptoms Patient denies exposure to infectious person Patient denies travel to an Ebola-affected area in the 21 days before illness onset No symptoms or risks identified at this time. ROS: 15:17 Constitutional: Negative for fever, chills, and weight loss, Eyes: Negative for injury, jmm pain, redness, and discharge, Cardiovascular: Negative for chest pain, palpitations, and edema. 15:17 Abdomen/GI: Negative for abdominal pain, nausea, vomiting, diarrhea, and constipation, Back: Negative for injury and pain, MS/Extremity: Negative for injury and deformity, Skin: Negative for injury, rash, and discoloration, Neuro: Negative for headache, weakness, numbness, tingling, and seizure. 15:17 Respiratory: Positive for shortness of breath. 15:17 All other systems are negative. Exam: 15:17 Head/Face: atraumatic. Eyes: EOMI, no conjunctival erythema appreciated Neck: jmm Trachea midline, Supple Chest/axilla: Normal chest wall appearance and motion. Cardiovascular: Regular rate and rhythm. No edema appreciated Respiratory: Normal respirations, no respiratory distress appreciated Abdomen/GI: Non distended, soft Skin: General appearance color normal MS/ Extremity: Moves all extremities, no obvious deformities appreciated, no edema noted to the lower extremities Neuro: Awake and alert, normal gait 15:17 Constitutional: The patient appears in no acute distress, alert, awake. Vital Signs: 14:21 BP 161 / 116; Pulse 92; Resp 22; Temp 97.5; Pulse Ox 97% on R/A; Weight 100.02 kg (M); aj Height 5 ft. 2 in. (157.48 cm); 16:25 BP 104 / 64; Pulse 88; Resp 13; Pulse Ox 100% on Nebulizer Mask; mh5 17:22 BP 124 / 58; Pulse 88; Resp 16; Pulse Ox 100% on R/A; mh5 20:11 BP 112 / 58; Pulse 85; Resp 17; Pulse Ox 98% on R/A; rv 14:21 Body Mass Index 40.33 (100.02 kg, 157.48 cm) MDM: 15:34 Patient medically screened. [facility] 19:28 Data reviewed: vital signs, nurses notes. Counseling: I had a detailed discussion with kiara the patient and/or guardian regarding: the historical points, exam findings, and any diagnostic results supporting the discharge/admit diagnosis, lab results, radiology results, the need for outpatient follow up, to return to the emergency department if symptoms worsen or persist or if there are any questions or concerns that arise at home. ED course: I discussed the patient with Dr. Perkins whom visited with the patient in the ED. Advised to discharge the patient with an increase in lasix and volume restriction. Patient states she feels much better. Walking 02 of 92% Patient has not required o2 in the ED. Labs and imaging studies are not concerning for an acute exacerbation of CHF. 02/02 15:17 Order name: Basic Metabolic Panel; Complete Time: 16: [facility] 02/02 15:17 Order name: CBC with Diff; Complete Time: 16:04 [facility] 02/02 15:17 Order name: LFT's; Complete Time: 16: [facility] 02/02 15:17 Order name: Magnesium; Complete Time: 16: [facility] 02/02 15:17 Order name: NT PRO-BNP; Complete Time: 16: [facility] 02/02 15:17 Order name: PT-INR; Complete Time: 16:18 [facility] 02/02 15:17 Order name: Troponin (emerg Dept Use Only); Complete Time: 16: [facility] 02/02 15:17 Order name: XRAY Chest (1 view); Complete Time: 15:47 [facility] 02/02 15:17 Order name: EKG; Complete Time: 15:18 [facility] 02/02 15:17 Order name: Cardiac monitoring; Complete Time: 16: [facility] 02/02 15:17 Order name: EKG - Nurse/Tech; Complete Time: 16: [facility] 02/02 15:17 Order name: IV Saline Lock; Complete Time: 16: [facility] 02/02 15:17 Order name: Labs collected and sent; Complete Time: 16: [facility] 02/02 15:17 Order name: O2 Per Protocol; Complete Time: 16: [facility] 02/02 15:17 Order name: O2 Sat Monitoring; Complete Time: 16:29 [facility] 02/02 18:43 Order name: Misc. Order: o2 monitoring when the patient is walking; Complete Time: 19:40jmm Administered Medications: 16:15 Drug: Lasix 40 mg Route: IVP; Site: left antecubital; rv 20:12 Follow up: Response: No adverse reaction rv 16:15 Drug: Xopenex (3) 1.25 mg Route: Inhalation; rv 20:12 Follow up: Response: Wheezing diminished rv 16:15 Drug: Zofran 4 mg Route: IVP; Site: left antecubital; rv 20:12 Follow up: Response: No adverse reaction rv Disposition: 02/03 07:12 Co-signature as Attending Physician, Frantz Rasmussen MD I agree with the assessment and mars plan of care. Disposition: 02/02/18 19:31 Discharged to Home. Impression: Unspecified combined systolic (congestive) and diastolic (congestive) heart failure. - Condition is Stable. - Discharge Instructions: Heart Failure. - Medication Reconciliation Form, Thank You Letter, Antibiotic Education, Prescription Opioid Use form. - Follow up: Noé Jacobs MD; When: Tomorrow; Reason: Recheck today's complaints, Continuance of care, Re-evaluation by your physician. - Notes: Please take 80 mg of lasix twice a day. Restrict your fluid intake. Please follow up with your primary care provider tomorrow. Return to the emergency department if you develop worsening shortness of breath. Signatures: Dispatcher [employer] EDKeli Mathis, Frantz Perez RN, MD MD cha Mickail, Joel, PA PA [facility] Marcos Chamberlain RN RN rv Corrections: (The following items were deleted from the chart) 02/02 20:13 19:31 02/02/2018 19:31 Discharged to Home. Impression: Unspecified combined systolic rv (congestive) and diastolic (congestive) heart failure. Condition is Stable. Forms are Medication Reconciliation Form, Thank You Letter, Antibiotic Education, Prescription Opioid Use. Follow up: Noé Jacobs; When: Tomorrow; Reason: Recheck today's complaints, Continuance of care, Re-evaluation by your physician. kiara
--- NOTE | 2018-02-02 19:32 | ER ---
Nurse's Notes [facility] Name: Pretty Sahni Age: 67 yrs Sex: Female : 1950 Arrival Date: 02/02/2018 Time: 14:03 Bed 27 Private MD: Noé Jacobs Diagnosis: Unspecified combined systolic (congestive) and diastolic (congestive) heart failure Presentation: 02/02 14:18 Presenting complaint: Patient states: SOB and [facility] Transition of care: patient was not received from another setting of care. Onset of symptoms was January 30, 2018. Risk Assessment: Do you want to hurt yourself or someone else? Patient reports no desire to harm self or others. Initial Sepsis Screen: Does the patient meet any 2 criteria? No. Patient's initial sepsis screen is negative. Does the patient have a suspected source of infection? No. Patient's initial sepsis screen is negative. Care prior to arrival: None. 14:18 Method Of Arrival: Ambulatory 14:18 Acuity: MARK 3 Triage Assessment: 14:21 General: Appears in no apparent distress. comfortable, Behavior is calm, cooperative, aj appropriate for age. Pain: Denies pain. Neuro: Level of Consciousness is awake, alert, obeys commands, Oriented to person, place, time, situation, Appropriate for age. Respiratory: Reports shortness of breath at rest on exertion Airway is patent Respiratory effort is even, unlabored, Respiratory pattern is regular, symmetrical, Onset: The symptoms/episode began/occurred gradually, the patient has mild shortness of breath. Derm: Skin is intact, is healthy with good turgor, Skin is pink, warm \T\ dry. normal. Historical: - Allergies: 14:21 KETAMINE; 14:21 Lisinopril; - Home Meds: 14:21 allopurinol 300 mg Oral tab 1 tab once daily [Active]; Belsomra 10 mg Oral tab 1 tab aj bedtime prn [Active]; citalopram 40 mg tab 1 tab once daily [Active]; clonazepam 1 mg Oral tab TID prn [Active]; digoxin 125 mcg Oral tab 1 tab once daily [Active]; hydrocodone-acetaminophen 7.5-325 mg Oral tab BID for Pain [Active]; Jentadueto 2.5-1,000 mg Oral tab 2 times per day [Active]; Lasix 40 mg Oral tab 2 times per day [Active]; levothyroxine 50 mcg tab 1 tab once daily [Active]; omeprazole 20 mg Oral cpDR 1 cap once daily [Active]; magnesium oxide 400 mg Oral cap daily [Active]; pravastatin 40 mg Oral tab 1 tab nightly [Active]; spironolactone 25 mg Oral tab 1 tab once daily [Active]; trazodone 50 mg Oral tab 1 tab at bedtime [Active]; Xarelto 20 mg Oral tab 1 tab once daily [Active]; - PMHx: 14:21 Anxiety; CHF; COPD; Depression; Diabetes - NIDDM; Fibromyalgia; Gout; Hypothyroidism; aj - PSHx: 14:21 Tonsillectomy; Tubal ligation; Hysterectomy; Defibrillator; aj - Immunization history:: Adult Immunizations up to date. - Social history:: Smoking status: Patient/guardian denies using tobacco. - Ebola Screening: : Patient negative for fever greater than or equal to 101.5 degrees Fahrenheit, and additional compatible Ebola Virus Disease symptoms Patient denies exposure to infectious person Patient denies travel to an Ebola-affected area in the 21 days before illness onset No symptoms or risks identified at this time. Screenin:32 Abuse screen: Denies threats or abuse. Denies injuries from another. Nutritional rv screening: No deficits noted. Tuberculosis screening: No symptoms or risk factors identified. Fall Risk None identified. Assessment: 16:31 General: Appears in no apparent distress. comfortable, Behavior is calm, cooperative. rv Pain: Denies pain. Neuro: Level of Consciousness is awake, alert, obeys commands, Oriented to person, place, time, situation. Cardiovascular: Capillary refill < 3 seconds Rhythm is regular. Respiratory: Airway is patent Breath sounds with wheezes bilaterally. GI: No signs and/or symptoms were reported involving the gastrointestinal system. : No signs and/or symptoms were reported regarding the genitourinary system. EENT: No signs and/or symptoms were reported regarding the EENT system. Derm: Skin is intact. Musculoskeletal: No signs and/or symptoms reported regarding the musculoskeletal system. Vital Signs: 14:21 BP 161 / 116; Pulse 92; Resp 22; Temp 97.5; Pulse Ox 97% on R/A; Weight 100.02 kg (M); aj Height 5 ft. 2 in. (157.48 cm); 16:25 BP 104 / 64; Pulse 88; Resp 13; Pulse Ox 100% on Nebulizer Mask; mh5 17:22 BP 124 / 58; Pulse 88; Resp 16; Pulse Ox 100% on R/A; mh5 20:11 BP 112 / 58; Pulse 85; Resp 17; Pulse Ox 98% on R/A; rv 14:21 Body Mass Index 40.33 (100.02 kg, 157.48 cm) aj ED Course: 14:03 Patient arrived in ED. rg4 14:03 Noé Jacobs MD is Private Physician. rg4 14:19 Triage completed. aj 14:21 Arm band placed on left wrist. Patient placed in waiting room, Patient notified of wait aj time. 15:15 Sharad Maldonado PA is PHCP. jmm 15:15 Frantz Rasmussen MD is Attending Physician. jmm 15:27 EKG done, reviewed by Sharad GRANGER. at1 15:35 X-ray completed. Portable x-ray completed in exam room. Patient tolerated procedure ag1 well. 15:39 XRAY Chest (1 view) In Process Unspecified. EDMS 16:00 Inserted saline lock: 22 gauge in left antecubital area, using aseptic technique. Blood rv collected. 16:00 Initial lab(s) drawn, by me, sent to lab. rv 16:15 Initial Neb Treatment Given as ordered Patient was instructed and evaluated on rv procedure. 16:32 Patient has correct armband on for positive identification. Bed in low position. Call rv light in reach. Side rails up X 1. Adult w/ patient. personnel monitor on. Pulse ox on. NIBP on. 19:31 Noé Jacobs MD is Referral Physician. jmm 20:12 No provider procedures requiring assistance completed. IV discontinued, bleeding rv controlled, No redness/swelling at site. Pressure dressing applied. Administered Medications: 16:15 Drug: Lasix 40 mg Route: IVP; Site: left antecubital; rv 20:12 Follow up: Response: No adverse reaction rv 16:15 Drug: Xopenex (3) 1.25 mg Route: Inhalation; rv 20:12 Follow up: Response: Wheezing diminished rv 16:15 Drug: Zofran 4 mg Route: IVP; Site: left antecubital; rv 20:12 Follow up: Response: No adverse reaction rv Outcome: 19:31 Discharge ordered by . kiara 20:13 Patient left the ED. rv Signatures: Dispatcher [employer] Keli Sweeney, RN RN Sharad Lin PA PA jmm Gonzales, Amanda, elevator service mechanic EKG Tat1 Julianna Lozano Rubi 4 Elaine Stapleton [facility] Marcos Chamberlain RN RN rv
[2018-02-02 20:17] VITALS: TEMP 97.5
[2018-02-02 20:21] VITALS: BP 112/58; O2SAT 98
--- NOTE | 2018-02-03 07:19 | EKG ---
Test Date: 2018-02-02 Test Time: 15:15:42 Organ Grinder: CARRIE MEASUREMENT RESULTS: Intervals: Rate: 85 MO: 164 QRSD: 110 QT: 406 QTc: 483 [place]: P: 52 MO: 164 QRS: -8 T: 116 INTERPRETIVE STATEMENTS: Normal sinus rhythm Possible Left atrial enlargement Intraventricular conduction delay Left ventricular hypertrophy Nonspecific T wave abnormality Prolonged QT Abnormal ECG Compared to ECG 01/25/2018 11:58:38 Left ventricular hypertrophy now present T-wave abnormality still present Electronically Signed On 02-03-18 07:18:56 ORNAMENTAL IRONWORKING SUPERVISOR by Larry Cowan
== END 2018-02-02 20:13 | disposition home or self-care (01) ==
LOC: ER 14:00
DX: I50.40 Unspecified combined systolic (congestive) and diastolic (congestive) heart failure (principal); E11.9 Type 2 diabetes mellitus without complications; J44.9 Chronic obstructive pulmonary disease, unspecified; E03.9 Hypothyroidism, unspecified; Z88.8 Allergy status to other drugs, medicaments and biological substances
CPT/HCPCS: 36415; 71045; 80048; 80076; 83735; 83880; 84484; 85025; 85610; 93005; 96374; 96375; 99285; J1940; J2405

== ENCOUNTER 2018-04-19 01:06 | Inpatient (IN) | payer OTHER ==
--- OUTSIDE RECORDS SUMMARY | 2018-04-19 01:09 | XMS REPORT | Clinical Summary ---
:1950 Author Organization [facility] Address [address] [place] [address] Care Team Providers Name Role Phone Noé [...] Not on file Implants Implanted Type Area Auto Damage Trainee Device Shelf Model / Identifier Expiration Serial / Date Lot Envlp Impl Crdvrtr Dfb Antbctrl Fully Resorb Lg Aigissrx R - [id number] Cardiovascular N/A: [employer] [id number] / Implanted: 04/24/2016 (Quantity not on file) Implants N/A / Visia Af Vr Device - [id number] CARDIAC DEFIB N/A: [employer] [id number] / Implanted: Qty: 1 on 04/24/2016 by Joss Solano Jr., MD N/A [employer] / Results Not on fileafter 04/18/2017 Insurance Payer Benefit Plan / Group Subscriber ID Type Phone Address MEDICARE MEDICARE PART A AND B xxxxxxxxxx Medicare [place], [place] Advance Directives Patient has advance care planning documents on file. For more information, please contact:[place] [place] [address]
[2018-04-19] MEDS ORDERED: NA CHLORIDE 0.9% 1,000 ML ONE (02:11)
[2018-04-19] MEDS ORDERED: CEFTRIAXONE/SWI 1gm 1 GM/10 ML SYR ONE (02:51)
--- NOTE | 2018-04-19 03:08 | ER ---
Nurse's Notes [facility] Name: Pretty Sahni Age: 67 yrs Sex: Female : 1950 Arrival Date: 04/19/2018 Time: 01:09 Bed 19 Private MD: Diagnosis: Hypotension;Unspecified combined systolic (congestive) and diastolic (congestive) heart failure;Urinary tract infection, site not specified Presentation: 04/19 01:34 Presenting complaint: Patient states: joint pain, "not feeling well today"lower back ak1 pain for "months'. Transition of care: patient was not received from another setting of care. Onset of symptoms was April 19, 2018. Risk Assessment: Do you want to hurt yourself or someone else? Patient reports no desire to harm self or others. Care prior to arrival: None. 01:34 Method Of Arrival: Ambulatory ak1 01:34 Acuity: MARK 3 ak1 02:26 Initial Sepsis Screen: Does the patient meet any 2 criteria? No. Patient's initial ak1 sepsis screen is negative. Does the patient have a suspected source of infection? No. Patient's initial sepsis screen is negative. Triage Assessment: 01:54 General: Appears in no apparent distress. Behavior is calm, cooperative. Pain: ak1 Complains of pain in lower back. EENT: No signs and/or symptoms were reported regarding the EENT system. Neuro: Level of Consciousness is awake, alert, obeys commands, Oriented to person, place, time, situation, Can Conveyor Feeder are equal bilaterally Moves all extremities. Gait is steady, Speech is normal, Facial symmetry appears normal. Cardiovascular: No deficits noted. Respiratory: No deficits noted. GI: No signs and/or symptoms were reported involving the gastrointestinal system. : No signs and/or symptoms were reported regarding the genitourinary system. Derm: No signs and/or symptoms reported regarding the dermatologic system. Musculoskeletal: No signs and/or symptoms reported regarding the musculoskeletal system. Historical: - Allergies: 01:50 KETAMINE; ak1 01:50 Lisinopril; ak1 - Home Meds: 01:50 allopurinol 300 mg Oral tab 1 tab once daily [Active]; Xarelto 20 mg Oral tab 1 tab ak1 once daily [Active]; trazodone 150 mg oral tab 1 tab [Active]; clonazepam 0.5 mg oral tab 3 times per day [Active]; magnesium oxide 400 mg Oral cap daily [Active]; citalopram 40 mg tab 1 tab once daily [Active]; spironolactone 25 mg Oral tab 1 tab once daily [Active]; hydrocodone-acetaminophen 10-325 mg oral tab 1 tab every 4 hours for Pain [Active]; levothyroxine 50 mcg tab 1 tab once daily [Active]; Lasix 80 mg oral tab 1 tab 2 times per day [Active]; omeprazole 40 mg oral cpDR 1 cap once daily [Active]; clotrimazole-betamethasone 1-0.05 % Topical crea 2 times per day [Active]; ceterizine 10mg [Active]; Linzess oral oral [Active]; atorvastatin 80 mg oral tab 1 tab once daily [Active]; metolazone 10 mg oral tab [Active]; calcitriol 0.25 mcg oral cap 1 cap [Active]; ducosate 100mg [Active]; buspirone 7.5 mg Oral tab 1 tab 2 times per day [Active]; Entresto 49-51 mg oral tab 1 tab 2 times per day [Active]; Lyrica 75mg Oral [Active]; montelukast 10 mg oral tab 1 tab once daily [Active]; carvedilol oral 10mg oral [Active]; proair [Active]; fluticasone [Active]; meclizine 25 mg Oral chew [Active]; ondansetron oral oral [Active]; glipizide 5 mg Oral tr24 2 times daily [Active]; ozempic [Active]; - PMHx: 01:50 Anxiety; COPD; CHF; Depression; Diabetes - NIDDM; Fibromyalgia; Gout; Hypothyroidism; ak1 - PSHx: 01:50 Tonsillectomy; Tubal ligation; Hysterectomy; Defibrillator; ak1 - Immunization history:: Adult Immunizations unknown. - Social history:: Smoking status: Patient/guardian denies using tobacco. - Ebola Screening: : No symptoms or risks identified at this time. Screenin:53 Abuse screen: Denies threats or abuse. Denies injuries from another. Nutritional ak1 screening: No deficits noted. Tuberculosis screening: No symptoms or risk factors identified. Fall Risk None identified. Assessment: 02:26 General: Appears in no apparent distress. Pain: Complains of pain in lower back pain, ak1 chronic per pt. Neuro: No deficits noted. Cardiovascular: No deficits noted. Respiratory: No deficits noted. GI: No signs and/or symptoms were reported involving the gastrointestinal system. : Reports pt went to restroom in ER after whipping pt had bright red blood on toilet paper. pt denies blood prior to just not. pt denies burning with urination, pt denies flank pain. EENT: No signs and/or symptoms were reported regarding the EENT system. Derm: No signs and/or symptoms reported regarding the dermatologic system. Musculoskeletal: No signs and/or symptoms reported regarding the musculoskeletal system. 03:30 Reassessment: Patient appears in no apparent distress at this time. No changes from ak1 previously documented assessment. Patient and/or family updated on plan of care and expected duration. Pain level reassessed. Patient is alert, oriented x 3, equal unlabored respirations, skin warm/dry/pink. pt informed of admission status. 04:34 Reassessment: pt going to CT. ak1 05:15 Reassessment: Patient appears in no apparent distress at this time. came back from CT rr5 scan. assisted on bed comfortably no complaints made. 05:59 Reassessment: complaining of nausea. ED provider informed with order made and carried rr5 out. 06:23 Reassessment: Patient appears in no apparent distress at this time. Patient is alert, rr5 oriented x 3, equal unlabored respirations, skin warm/dry/pink. Patient states feeling better. Patient states symptoms have improved. 06:54 Reassessment: Patient appears in no apparent distress at this time. Patient is alert, rr5 oriented x 3, equal unlabored respirations, skin warm/dry/pink. I feel relieved now from the nausea. Patient states feeling better. Patient states symptoms have improved. 07:42 Reassessment: Patient appears in no apparent distress at this time. Patient and/or ph family updated on plan of care and expected duration. Pain level reassessed. Patient is alert, oriented x 3, equal unlabored respirations, skin warm/dry/pink. Report called to ELIUD Barrera, preparing pt to be taken to ICU 4. Vital Signs: 01:33 BP 82 / 48 LA Supine; Pulse 74; Resp 18; Temp 98.3(O); Pulse Ox 97% on R/A; Weight ak1 104.33 kg (R); Height 5 ft. 2 in. (157.48 cm) (R); Pain 6/10; 01:34 BP 71 / 47 RA Supine (auto/lg); ak1 02:24 BP 89 / 55; Pulse 73; Resp 16; Pulse Ox 98% on R/A; ak1 04:18 BP 91 / 51; Pulse 66; Resp 14; Temp 98.4(O); Pulse Ox 97% on R/A; ak1 05:15 BP 115 / 57; Pulse 69; Resp 17; Pulse Ox 99% ; rr5 06:20 BP 94 / 52; Pulse 74; Resp 17; Pulse Ox 99% ; rr5 06:53 BP 91 / 55; Pulse 70; Resp 16; Temp 98.1; Pulse Ox 98% ; rr5 07:43 BP 88 / 62; Pulse 74; Resp 20; Temp 97.8; Pulse Ox 99% on R/A; ph 01:33 Body Mass Index 42.07 (104.33 kg, 157.48 cm) ak1 ED Course: 01:09 Patient arrived in ED. ds1 01:33 Sherie Mims, RN is Primary Nurse. ak1 01:35 Triage completed. ak1 01:45 Frantz Rasmussen MD is Attending Physician. mars 01:53 Arm band placed on Patient placed in an exam room, on a stretcher, on manager cardiac cath, ak1 on pulse oximetry, Patient notified of wait time. 01:53 Patient has correct armband on for positive identification. Placed in gown. Bed in low ak1 position. Call light in reach. Side rails up X 1. Adult w/ patient. android ios developer on. Pulse ox on. NIBP on. 02:18 XRAY Chest (1 view) In Process Unspecified. EDMS 02:35 Initial lab(s) drawn, by me, sent to lab. Inserted 18 gauge 10 cm midline to right fc upper arm basilic vein on first attempt. Line with good blood return and flushes well. 02:49 Basic Metabolic Panel Sent. ak1 03:06 Zunilda Torres MD is Hospitalizing Provider. mars 04:19 No provider procedures requiring assistance completed. Patient admitted, IV remains in ak1 place. 04:[address] via wheelchair. kw1 Administered Medications: 01:59 Not Given (Duplicate Order): NS 0.9% 1000 ml IV at 1 bolus Per protocol; 1000 mL bolus mars 02:39 Drug: NS 0.9% 500 ml Route: IV; Rate: bolus; Site: right upper arm; ak1 03:29 Follow up: IV Status: Completed infusion; IV Intake: 500ml ak1 02:48 Drug: Rocephin - (cefTRIAXone) 1 grams Route: IVPB; Infused Over: 30 mins; Site: right ak1 upper arm; 02:48 Follow up: IV Status: Completed infusion; IV Intake: 10ml ak1 05:59 Drug: Zofran 4 mg {Note: midline.} Route: IVP; Site: right upper arm; rr5 06:55 Follow up: Response: No adverse reaction rr5 Intake: 02:48 IV: 10ml; Total: 10ml. ak1 03:29 IV: 500ml; Total: 510ml. ak1 Outcome: 03:08 Decision to Hospitalize by Provider. [facility] 07:43 Admitted to 07:43 Admitted to ICU accompanied by nurse, accompanied by tech, via stretcher, room 4, on monitor, with chart, Report called to ELIUD Barrera 07:43 critical 07:43 Instructed on the need for admit. 08:03 Patient left the ED. ph Signatures: Dispatcher [employer] Frantz Fallon MD MD cha Chretien, Felicia, RN Mary Moreira ds1 Sherie Mims RN RN ak1 Mini Zhang RN RN ph Wilhelm, Kimberly kw1 Maximo Reina RN RN rr5
--- NOTE | 2018-04-19 03:09 | EDPHYS ---
Physician Documentation [facility] Name: Pretty Sahni Age: 67 yrs Sex: Female : 1950 Arrival Date: 04/19/2018 Time: 01:09 Bed 19 Private MD: Frantz Rees HPI: 04/19 01:50 This 67 yrs old Female presents to ER via Ambulatory with complaints of High mars Blood Pressure. 01:50 The patient has elevated blood pressure and discovered this at home. Onset: The mars symptoms/episode began/occurred 1 day(s) ago. Modifying factors: The symptoms are aggravated by activity, The symptoms are alleviated by remaining still. Associated signs and symptoms: The patient has no apparent associated signs or symptoms. Severity of symptoms: At its worst the blood pressure was. Historical: - Allergies: 01:50 KETAMINE; ak1 01:50 Lisinopril; ak1 - Home Meds: 01:50 allopurinol 300 mg Oral tab 1 tab once daily [Active]; Xarelto 20 mg Oral tab 1 tab ak1 once daily [Active]; trazodone 150 mg oral tab 1 tab [Active]; clonazepam 0.5 mg oral tab 3 times per day [Active]; magnesium oxide 400 mg Oral cap daily [Active]; citalopram 40 mg tab 1 tab once daily [Active]; spironolactone 25 mg Oral tab 1 tab once daily [Active]; hydrocodone-acetaminophen 10-325 mg oral tab 1 tab every 4 hours for Pain [Active]; levothyroxine 50 mcg tab 1 tab once daily [Active]; Lasix 80 mg oral tab 1 tab 2 times per day [Active]; omeprazole 40 mg oral cpDR 1 cap once daily [Active]; clotrimazole-betamethasone 1-0.05 % Topical crea 2 times per day [Active]; ceterizine 10mg [Active]; Linzess oral oral [Active]; atorvastatin 80 mg oral tab 1 tab once daily [Active]; metolazone 10 mg oral tab [Active]; calcitriol 0.25 mcg oral cap 1 cap [Active]; ducosate 100mg [Active]; buspirone 7.5 mg Oral tab 1 tab 2 times per day [Active]; Entresto 49-51 mg oral tab 1 tab 2 times per day [Active]; Lyrica 75mg Oral [Active]; montelukast 10 mg oral tab 1 tab once daily [Active]; carvedilol oral 10mg oral [Active]; proair [Active]; fluticasone [Active]; meclizine 25 mg Oral chew [Active]; ondansetron oral oral [Active]; glipizide 5 mg Oral tr24 2 times daily [Active]; ozempic [Active]; - PMHx: 01:50 Anxiety; COPD; CHF; Depression; Diabetes - NIDDM; Fibromyalgia; Gout; Hypothyroidism; ak1 - PSHx: 01:50 Tonsillectomy; Tubal ligation; Hysterectomy; Defibrillator; ak1 - Immunization history:: Adult Immunizations unknown. - Social history:: Smoking status: Patient/guardian denies using tobacco. - Ebola Screening: : No symptoms or risks identified at this time. ROS: 01:52 Constitutional: Negative for fever, chills, and weight loss, Eyes: Negative for injury, mars pain, redness, and discharge, ENT: Negative for injury, pain, and discharge, Neck: Negative for injury, pain, and swelling, Cardiovascular: Negative for chest pain, palpitations, and edema, Respiratory: Negative for shortness of breath, cough, wheezing, and pleuritic chest pain, Abdomen/GI: Negative for abdominal pain, nausea, vomiting, diarrhea, and constipation, Back: Negative for injury and pain, : Negative for injury, bleeding, discharge, and swelling, MS/Extremity: Negative for injury and deformity, Skin: Negative for injury, rash, and discoloration, Psych: Negative for depression, anxiety, suicide ideation, homicidal ideation, and hallucinations, Allergy/Immunology: Negative for hives, rash, and allergies, Endocrine: Negative for neck swelling, polydipsia, polyuria, polyphagia, and marked weight changes, Hematologic/Lymphatic: Negative for swollen nodes, abnormal bleeding, and unusual bruising. 01:52 Neuro: Positive for weakness. Exam: 01:52 Constitutional: This is a well developed, well nourished patient who is awake, alert, mars and in no acute distress. Head/Face: Normocephalic, atraumatic. Eyes: Pupils equal round and reactive to light, extra-ocular motions intact. Lids and lashes normal. Conjunctiva and sclera are non-icteric and not injected. Cornea within normal limits. Periorbital areas with no swelling, redness, or edema. ENT: Nares patent. No nasal discharge, no septal abnormalities noted. Tympanic membranes are normal and external auditory canals are clear. Oropharynx with no redness, swelling, or masses, exudates, or evidence of obstruction, uvula midline. Mucous membranes moist. Neck: Trachea midline, no thyromegaly or masses palpated, and no cervical lymphadenopathy. Supple, full range of motion without nuchal rigidity, or vertebral point tenderness. No Meningismus. Chest/axilla: Normal chest wall appearance and motion. Nontender with no deformity. No lesions are appreciated. Cardiovascular: Regular rate and rhythm with a normal S1 and S2. No gallops, murmurs, or rubs. Normal PMI, no JVD. No pulse deficits. Respiratory: Lungs have equal breath sounds bilaterally, clear to auscultation and percussion. No rales, rhonchi or wheezes noted. No increased work of breathing, no retractions or nasal flaring. Abdomen/GI: Soft, non-tender, with normal bowel sounds. No distension or tympany. No guarding or rebound. No evidence of tenderness throughout. Back: No spinal tenderness. No costovertebral tenderness. Full range of motion. Female : Normal external genitalia. Skin: Warm, dry with normal turgor. Normal color with no rashes, no lesions, and no evidence of cellulitis. MS/ Extremity: Pulses equal, no cyanosis. Neurovascular intact. Full, normal range of motion. Neuro: Awake and alert, GCS 15, oriented to person, place, time, and situation. Cranial nerves II-XII grossly intact. Motor strength 5/5 in all extremities. Sensory grossly intact. Cerebellar exam normal. Normal gait. Psych: Awake, alert, with orientation to person, place and time. Behavior, mood, and affect are within normal limits. Vital Signs: 01:33 BP 82 / 48 LA Supine; Pulse 74; Resp 18; Temp 98.3(O); Pulse Ox 97% on R/A; Weight ak1 104.33 kg (R); Height 5 ft. 2 in. (157.48 cm) (R); Pain 6/10; 01:34 BP 71 / 47 RA Supine (auto/lg); ak1 02:24 BP 89 / 55; Pulse 73; Resp 16; Pulse Ox 98% on R/A; ak1 04:18 BP 91 / 51; Pulse 66; Resp 14; Temp 98.4(O); Pulse Ox 97% on R/A; ak1 05:15 BP 115 / 57; Pulse 69; Resp 17; Pulse Ox 99% ; rr5 06:20 BP 94 / 52; Pulse 74; Resp 17; Pulse Ox 99% ; rr5 06:53 BP 91 / 55; Pulse 70; Resp 16; Temp 98.1; Pulse Ox 98% ; rr5 07:43 BP 88 / 62; Pulse 74; Resp 20; Temp 97.8; Pulse Ox 99% on R/A; ph 01:33 Body Mass Index 42.07 (104.33 kg, 157.48 cm) wa1 MDM: 01:45 Patient medically screened. [facility] 01:53 Data reviewed: vital signs, nurses notes, lab test result(s), EKG, radiologic studies, [facility] CT scan, plain films. 04/19 01:50 Order name: Basic Metabolic Panel [facility] 04/19 01:50 Order name: CBC with Diff [facility] 04/19 01:50 Order name: LFT's [facility] 04/19 01:50 Order name: Magnesium [facility] 04/19 01:50 Order name: NT PRO-BNP [facility] 04/19 01:50 Order name: PT-INR [facility] 04/19 01:50 Order name: Troponin (emerg Dept Use Only) [facility] 04/19 01:50 Order name: Lipase [facility] 04/19 01:50 Order name: Urine Culture [facility] 04/19 01:50 Order name: D-Dimer [facility] 04/19 01:51 Order name: Basic Metabolic Panel [facility] 04/19 02:33 Order name: Type And Screen [facility] 04/19 04:16 Order name: ABO/RH no charge [facility] 04/19 04:24 Order name: Urinalysis W/Microscopic [facility] 04/19 01:50 Order name: XRAY Chest (1 view) [facility] 04/19 01:50 Order name: EKG; Complete Time: 01:51 [facility] 04/19 01:50 Order name: Cardiac monitoring; Complete Time: 02:24 [facility] 04/19 01:50 Order name: EKG - Nurse/Tech; Complete Time: 02:24 [facility] 04/19 01:50 Order name: IV Saline Lock; Complete Time: 02:49 [facility] 04/19 01:50 Order name: Labs collected and sent; Complete Time: 02:49 [facility] 04/19 01:50 Order name: O2 Per Protocol; Complete Time: 01:53 [facility] 04/19 02:31 Order name: CT Stone Protocol [facility] 04/19 04:21 Order name: CONS Physician Consult [facility] 04/19 04:21 Order name: CONS Physician Consult [facility] 04/19 04:21 Order name: Heart Healthy [facility] 04/19 04:21 Order name: Echo with Doppler [facility] 04/19 01:50 Order name: O2 Sat Monitoring; Complete Time: 01:53 [facility] 04/19 01:50 Order name: Urine Dipstick-Ancillary (obtain specimen); Complete Time: 02:24 [facility] Administered Medications: 01:59 Not Given (Duplicate Order): NS 0.9% 1000 ml IV at 1 bolus Per protocol; 1000 mL bolus [facility] 02:39 Drug: NS 0.9% 500 ml Route: IV; Rate: bolus; Site: right upper arm; ak1 03:29 Follow up: IV Status: Completed infusion; IV Intake: 500ml ak1 02:48 Drug: Rocephin - (cefTRIAXone) 1 grams Route: IVPB; Infused Over: 30 mins; Site: right ak1 upper arm; 02:48 Follow up: IV Status: Completed infusion; IV Intake: 10ml ak1 05:59 Drug: Zofran 4 mg {Note: midline.} Route: IVP; Site: right upper arm; rr5 06:55 Follow up: Response: No adverse reaction rr5 Disposition: 04/19/18 03:08 Hospitalization ordered by Zunilda Torres for Inpatient Admission. Preliminary diagnosis are Hypotension, Unspecified combined systolic (congestive) and diastolic (congestive) heart failure, Urinary tract infection, site not specified. - Bed requested for Intensive Care Unit. - Status is Inpatient Admission. ph - Condition is Fair. - Problem is new. - Symptoms have improved. UTI on Admission? Yes Signatures: Dispatcher [employer] EDMarily Bean RN RN kl Anderson, Corey, MD MD cha Krenek, Amber, RN RN ak1 Mini Zhang RN RN ph Roque, Raymond RN RN rr5 Corrections: (The following items were deleted from the chart) 05:47 03:08 Hospitalization Ordered by Zunilda Torres MD for Inpatient Admission. Preliminary kl diagnosis is Hypotension; Unspecified combined systolic (congestive) and diastolic (congestive) heart failure; Urinary tract infection, site not specified. Bed requested for Telemetry/MedSurg (Inpatient). Status is Inpatient Admission. Condition is Fair. Problem is new. Symptoms have improved. UTI on Admission? Yes. [facility] 08:03 05:47 04/19/2018 03:08 Hospitalization Ordered by Zunilda Torres MD for Inpatient ph Admission. Preliminary diagnosis is Hypotension; Unspecified combined systolic (congestive) and diastolic (congestive) heart failure; Urinary tract infection, site not specified. Bed requested for Intensive Care Unit. Status is Inpatient Admission. Condition is Fair. Problem is new. Symptoms have improved. UTI on Admission? Yes. kl
[2018-04-19 03:17] LABS: Absolute Lymphocytes (CBC) 2.3 K/uL (0.7-4.9); Absolute Monocytes 0.3 K/uL (0.1-1.3); Basophils % 0.5 % (0-1.3); Hematocrit 36.4 % (36.0-45.0); Lymphocytes % 33.3 % (15.3-44.8); MPV 9.1 fL (7.6-11.3); Monocytes % 4.8 % (3.3-12.3); RBC Red Blood Cell Count 4.01 M/uL (3.86-4.86)
[2018-04-19 03:30] LABS: ALT/SGPT 17 U/L (12-78); AST/SGOT 16 U/L (15-37); Albumin 3.8 g/dL (3.4-5.0); Alkaline Phosphatase 125 U/L (45-117); BUN Blood Urea Nitrogen 74 mg/dL (7-18); Bicarbonate 34 mmol/L (21-32); Bilirubin Direct < 0.1 mg/dL (0-0.2); Bilirubin Total 0.2 mg/dL (0.2-1.0); Glucose Level 107 mg/dL (74-106); Lipase 179 U/L (73-393); Magnesium 2.1 mg/dL (1.8-2.4); NT PRO-BNP 958 pg/mL (<125); Potassium 3.6 mmol/L (3.5-5.1); Protein, Total 7.3 g/dL (6.4-8.2); Sodium Level 142 mmol/L (136-145); Troponin (Emerg Dept Use Only) < 0.02 ng/mL (0.0-0.045)
[2018-04-19] MEDS ORDERED: MAGNESIUM HYDROXIDE 8% 30 ML PO PRN (04:18)
[2018-04-19] MEDS ORDERED: ACETAMINOPHEN 500 MG TAB PO PRN (04:18)
[2018-04-19] MEDS ORDERED: NA CHLORIDE 0.9% 1,000 ML IV SCH (05:00)
[2018-04-19] MEDS ORDERED: ONDANSETRON 4 MG/2 ML VIAL ONE (06:04)
--- NOTE | 2018-04-19 07:15 | EKG ---
Test Date: 2018-04-19 Test Time: 02:11:18 [employer]: KARO MEASUREMENT RESULTS: Intervals: Rate: 71 NV: 174 QRSD: 102 QT: 398 QTc: 432 [place]: P: 53 NV: 174 QRS: 3 T: 64 INTERPRETIVE STATEMENTS: Normal sinus rhythm Minimal voltage criteria for LVH, may be normal variant Possible Anterior infarct, age undetermined Abnormal ECG Compared to ECG 02/02/2018 15:15:42 Myocardial infarct finding now present Intraventricular conduction delay no longer present T-wave abnormality no longer present Prolonged QT interval no longer present Electronically Signed On 04-19-18 07:14:47 GEAR AND SPLINE GRINDER by Larry Cowan
[2018-04-19 08:28] VITALS: BMI 42.7
--- NOTE | 2018-04-19 08:41 | RAD REPORT ---
EXAM DESCRIPTION: RAD - Chest Single View - 04/19/2018 2:17 am CLINICAL HISTORY: COUGH Chest pain. COMPARISON: Chest Single View dated 02/02/2018; Chest Single View dated 01/29/2018; Chest Pa And Lat (2 Views) dated 01/28/2018; Chest Single View dated 01/27/2018 FINDINGS: Portable technique limits examination quality. The lungs are grossly clear. The heart is moderately prominent in size with single lead pacer/defibri llator device present. No displaced fractures.Right-sided venous catheter its tip in the SVC.
[2018-04-19] MEDS ORDERED: ENOXAPARIN 40 MG/0.4 ML SQ SCH (09:00)
--- NOTE | 2018-04-19 09:27 | P.HP ---
Certification for Inpatient Patient admitted to: Inpatient With expected LOS: <2 Midnights Patient will require the following post-hospital care: None Practitioner: I am a practitioner with admitting privileges, knowledge of patient current condition, hospital course, and medical plan of care. Services: Services provided to patient in accordance with Admission requirements found in Title 42 Section 412.3 of the Code of Federal Regulations Patient History Date of Service: 04/19/18 Reason for admission: Shortness of breath/hypotension / acute kidney injury History of Present Illness: Patient is a 67-year-old female who came to the hospital with complaints of shortness of breath. At home she felt like her blood pressure was elevated and when she checked it was 170/100. However, when she arrived to the emergency room she was hypotensive with a blood pressure of 90s over 50s. Her chest x- ray did show some pulmonary edema and she was gently diuresed. However she does have some acute kidney injury and I think she may actually be over diuresed. Will go ahead and start her on some gentle hydration and recheck an echocardiogram as we do not have 1 in the chart since 2016. At that time her ejection fraction was 25-30%. She is on multiple cardiac medications including Entresto and Lasix. Will admit her to the ICU and monitor her closely. There was concern for hematuria as well. We will get a UA with microscopy. I was informed that CT stone protocol revealed a cystitis. Will await for the official report. Allergies ketamine Allergy (Intermediate, Verified 12/16/17 09:19) severe hallucinations lisinopril Allergy (Intermediate, Verified 12/16/17 09:19) kidney failure-had to go on short term dialysis Home Medications: Citalopram [Celexa*] 40 mg PO DAILY 09/09/15 Levothyroxine [Synthroid*] 50 mcg PO [id number] 09/09/15 Trazodone HCl [Desyrel] 150 mg PO BEDTIME 11/16/15 Furosemide [Lasix*] 40 mg PO BIDL #60 tab 08/22/17 Sacubitril/Valsartan [Entresto 24 mg-26 mg Tablet] 1 tab PO BID #60 tab Albuterol Sulfate [Proair Hfa] 2 puff IH Q4HP PRN 12/16/17 Allopurinol [Zyloprim*] 300 mg PO DAILY 12/16/17 Atorvastatin Calcium [Lipitor] 80 mg PO BEDTIME 12/16/17 Bifidobacterium Infantis [Align] 4 mg PO DAILY 12/16/17 Buspirone HCl [Buspar*] 7.5 mg PO BID 12/16/17 Carvedilol Phosphate [Carvedilol ER] 10 mg PO DAILY 12/16/17 Cetirizine HCl [Zyrtec] 10 mg PO DAILY 12/16/17 Docusate Sodium 100 mg PO BID 12/16/17 Fluticasone [Flonase 50MCG Nasal [place]*] 2 sprays NS DAILY 12/16/17 Glipizide [Glipizide Xl] 5 mg PO BID 12/16/17 Linaclotide [Linzess] 290 mcg PO BEDTIME 12/16/17 Magnesium Oxide [Mag 0X*] 400 mg PO DAILY 12/16/17 Montelukast [Singulair*] 10 mg PO BEDTIME 12/16/17 Pantoprazole [Protonix Tab*] 40 mg PO DAILY 12/16/17 Pregabalin [Lyrica*] 75 mg PO BID 12/16/17 Rivaroxaban [Xarelto*] 20 mg PO DAILY 12/16/17 Semaglutide [Ozempic] 0.5 mg SQ EVERY 7TH DAY 12/16/17 Spironolactone [Aldactone*] 12.5 mg PO DAILY 12/16/17 clonazePAM [Clonazepam] 0.5 mg PO TID 12/16/17 Cyclobenzaprine [Flexeril*] 5 mg PO BEDTIME 01/28/18 Hydrocodone Bit/Acetaminophen [Hydrocodon-Acetaminoph 7.5-325] 1 tab PO BID Ondansetron HCl [Zofran] 4 mg PO TID PRN 01/28/18 - Past Medical/Surgical History Has patient received pneumonia vaccine in the past: Yes Diabetic: Yes -: Diabetes mellitus type 2 [id number] -: Gout -: Depression with anxiety -: Hypothyroidism -: COPD -: Systolic congestive heart failure -: Atrial fibrillation, chronic anti coagulation -: Hyperlipidemia -: Chronic constipation -: Chronic pain -: Hysterectomy -: Rt heel -removal of bone spur -: Tubal ligation -: Tawnya-cath -: Defibrillator -: tonsillectomy Psychosocial/ Personal History: Patient is independent. - Family History Father Medical History: Heart disease, Cancer Mother Medical History: Heart disease, Diabetes - Social History Smoking Status: Never smoker Alcohol use: Yes CD- Drugs: No Caffeine use: Yes Place of Residence: Home Review of Systems 10-point ROS is otherwise unremarkable Physical Examination - Vital Signs Temperature: 97.8 F Blood Pressure: 88/62 Pulse: 74 Respirations: 20 Pulse Ox (%): 92 - Physical Exam General: Alert, In no apparent distress, Oriented x3 HEENT: Atraumatic, PERRLA, Mucous membr. moist/pink, EOMI, Sclerae nonicteric Neck: Supple, 2+ carotid pulse no bruit, No LAD, Without JVD or thyroid abnormality Respiratory: Clear to auscultation bilaterally, Normal air movement Cardiovascular: Regular rate/rhythm, Normal S1 S2 Gastrointestinal: Normal bowel sounds, Soft and benign, Non-distended, No tenderness Musculoskeletal: No tenderness Integumentary: No rashes Neurological: Normal gait, Normal speech, Normal strength at 5/5 x4 extr, Normal tone, Sensation intact, Cranial nerves 3-12 intact, Normal affect Lymphatics: No axilla or inguinal lymphadenopathy - Studies Laboratory Data (last 24 hrs) 04/19/18 02:35: PT 15.2 H, INR 1.30 04/19/18 02:35: WBC 6.8, Hgb 11.9 L, Hct 36.4, Plt Count 164 04/19/18 02:35: Sodium 142, Potassium 3.6, BUN 74 H, Creatinine 1.96 H, Glucose 107 H, Magnesium 2.1, Total Bilirubin 0.2, AST 16, ALT 17, Alkaline Phosphatase 125 H, Lipase 179 Assessment & Plan - Problems (Diagnosis) (1) Hematuria Current Visit: Yes Status: Acute (2) EVA (acute kidney injury) Current Visit: Yes Status: Acute (3) Acute on chronic systolic (congestive) heart failure Onset Date: 01/31/18 Current Visit: No Status: Acute (4) Atrial fibrillation Onset Date: 11/25/15 Current Visit: No Status: Chronic Qualifiers: (5) Diabetes Onset Date: 09/10/15 Current Visit: No Status: Chronic Qualifiers: (6) Dyslipidemia Onset Date: 09/10/15 Current Visit: No Status: Chronic (7) HTN (hypertension) Onset Date: 11/25/15 Current Visit: No Status: Chronic Qualifiers: (8) Obesity (BMI 30-39.9) Current Visit: No Status: Chronic - Plan 1. Echocardiogram 2. gentle hydration at this time; await echo results 3. We will start patient on a Beta evangelist 4. Cardiology and Nephrology consultation 5. Hold diuresis 6. Strict I's and O's 7. Repeat CXR 8. Daily weights 9. Awaiting official result of CT stone protocol. 10. Education regarding diet and treatment of congestive heart failure Discharge Plan: Home Plan to discharge in: Greater than 2 days - Advance Directives Does patient have a Living Will: No Does patient have a Durable POA for Healthcare: Yes - Code Status/Comfort Care Code Status Assessed: Yes Code Status: Full Code Critical Care: Yes Time Spent Managing PTS Care (In Minutes): 55
--- NOTE | 2018-04-19 10:15 | ECHO ---
HEIGHT: 5 ft 2 in WEIGHT: 234 lb 0 oz DATE OF STUDY: 04/19/[address]: Zunilda Torres MD 2-DIMENSIONAL: YES M.MODE: YES DOPPLER: YES COLOR FLOW: YES TDS: PORTABLE: DEFINITY: BUBBLE STUDY: [*] DIAGNOSIS: CONGESTIVE HEART FAILURE, HYPOTENSIVE CARDIAC HISTORY: CATHERIZATION: YES SURGERY: NO PROSTHETIC VALVE: NO PACEMAKER: YES MEASUREMENTS (cm) DIASTOLIC (NORMALS) SYSTOLIC (NORMALS) IVSd 1.0 (0.6-1.2) LA Diam 3.9 (1.9-4.0) LVEF 30-35% LVIDd 6.4 (3.5-5.7) LVIDs 5.3 (2.0-3.5) %FS 22% LVPWd 1.1 (0.6-1.2) Ao Diam 2.7 (2.0-3.7) 2 DIMENSIONAL ASSESSMENT: RIGHT ATRIUM: DILATED LEFT ATRIUM: DILATED RIGHT VENTRICLE: DEFIBRILLATOR CATHETER LEFT VENTRICLE: DILATED TRICUSPID VALVE: NORMAL MITRAL VALVE: NORMAL PULMONIC VALVE: NORMAL AORTIC VALVE: NORMAL PERICARDIAL EFFUSION: NONE AORTIC ROOT: NORMAL LEFT VENTRICULAR WALL MOTION: GLOBAL HYPOKINESIS DOPPLER/COLOR FLOW: MILD MITRAL AND TRICUSPID REGURGITATION. ESTIMATED RIGHT VENTRICULAR SYSTOLIC PRESSURE 37 mmHg (MILD PULMONARY HYPERTENSION). COMMENTS: DEPRESSED LEFT VENTRICULAR EJECTION FRACTION. DILATED LEFT ATRIUM, LEFT VENTRICLE AND RIGHT ATRIUM. PACEMAKER IN RIGHT VENTRICLE. MILD MITRAL AND TRICUSPID REGURGITATION. MILD PULMONARY HYPERTENSION. TECHNOLOGIST: IDRIS JOHNSON
--- NOTE | 2018-04-19 11:32 | RAD REPORT ---
EXAM DESCRIPTION: CT Abdomen and Pelvis Without Intravenous Contrast. CLINICAL HISTORY: The patient is 67 years old and is Female; ABD PAIN. COMPARISON: CT of the abdomen and pelvis January 25, 2018. TECHNIQUE: Axial computed tomography images of abdomen and pelvis without intravenous contrast. Sagittal and cor onal reformatted images were created and reviewed. This CT exam was performed using one or more of th e following dose reduction techniques: Automated exposure control, adjustment of the mA and/or kV acc ording to patient size, and/or use of iterative reconstruction technique. FINDINGS: Lung bases: Scarring within the left lung base is noted. ABDOMEN: Liver: The liver is enlarged. Gallbladder and bile ducts. No calcified stones. No ductal dilation. Pancreas: Unremarkable. No ductal dilation. Spleen: Unremarkable. Adrenals: Unremarkable. No mass. Kidneys and ureters: Mild prominence of both renal collecting systems is noted, right greater than le ft. This is unchanged from prior exam. Stomach and bowel: The stomach is decompressed. The small bowel is relatively normal in caliber. A mo derate amount of stool is present throughout the colon. There is no mucosal thickening or evidence of bowel obstruction. PELVIS: Appendix: The appendix is normal in caliber without surrounding inflammation. Bladder: The bladder is well distended. No stones. Reproductive: The patient is status post hysterectomy. ABDOMEN and PELVIS: Intraperitoneal space: Unremarkable. No free air. No significant fluid collection. Bones/joints: Mild degenerative change of the spine is present. Soft tissues: The soft tissues are normal. Vasculature: Unremarkable. No abdominal aortic aneurysm. Lymph nodes: Unremarkable. No enlarged lymph nodes. IMPRESSION: No acute findings on this noncontrasted CT of the abdomen and pelvis to explain the yvette ent's symptoms. Electronically signed by Ghazal Alvarez MD 04/19/2018 6:09 AM CUSTOMER RELATIONS ASSISTANT Due to temporary technical issues with the PACS/Fluency reporting system, reports are being signed by the in house radiologist as a courtesy to ensure prompt reporting. The interpreting radiologist is f rickly responsible for the content of the report.
[2018-04-19 11:45] LABS: Absolute Lymphocytes (CBC) 1.9 K/uL (0.7-4.9); Absolute Monocytes 0.3 K/uL (0.1-1.3); Absolute Neutrophil 4.3 K/uL (1.8-8.0); Basophils % 0.7 % (0-1.3); Eosinophils % 1.9 % (0-4.4); Lymphocytes % 28.6 % (15.3-44.8); MPV 8.4 fL (7.6-11.3); RBC Red Blood Cell Count 3.87 M/uL (3.86-4.86)
[2018-04-19 11:52] LABS: Magnesium 2.3 mg/dL (1.8-2.4); Potassium 3.5 mmol/L (3.5-5.1)
[2018-04-19] MEDS: ASPIRIN EC 81 MG TAB PO SCH (12:47)
--- NOTE | 2018-04-19 14:11 | CON ---
CARDIOLOGY CONSULT History Of Present Illness: Ms. Sahni is 67. She came to the hospital because she was feeling lightheaded. She thinks she has not been eating as much over the last few days. She took her blood pressure several times and thought it was high, but as soon as she arrived in the emergency room, it was low, it was just the 82. The patient is on lots of diuretics, actually three different ones, [place] ix spironolactone, and metolazone. So, I suspect she is over-diuresed. She is also on Entresto and carvedilol, and has a good congestive heart failure regimen. She has a defibrillator that seems to b e working normally. Physical Examination: General: 5 feet 2 inches, 234 pounds. HEENT: Unremarkable. Lungs: Clear. Heart exam: Regular rate and rhythm. Vital signs: Her blood pressure is just 91. Laboratory Data: Hemoglobin is 11.9, creatinine 1.96, troponin 0.02. N-terminal proBNP is 958. Impression: The patient probably got over-diuresed and hypotensive causing her symptoms. So, I woul d recommend we allow her to get some hydration, hold most of the diuretics, and try to re-establish s ome of her heart failure regimen gradually. CRUZ/VALENTINO Voice ID: [id number] Report ID: [id number]
[2018-04-19] MEDS: RIVAROXABAN 20 MG TABLET PO SCH (17:37)
[2018-04-19] MEDS: CEFTRIAXONE/SWI 1gm 1 GM/10 ML SYR IV SCH (20:26)
[2018-04-19] MEDS ORDERED: CEFTRIAXONE 1 GM/NS 50 ML 1 GM/50 ML BAG IV SCH (21:00)
[2018-04-19] MEDS: SACUBITRIL/VALSARTAN 49/51 MG TAB PO SCH (21:00)
[2018-04-19] MEDS: CARVEDILOL 3.125 MG TAB PO SCH (21:00)
[2018-04-19 21:49] LABS: Urine Appearance CLEAR; Urine Bilirubin NEGATIVE (NEG); Urine Blood NEGATIVE (NEG); Urine Color YELLOW; Urine Glucose NEGATIVE (NEG); Urine Protein NEGATIVE (NEG); Urine Urobilinogen 0.2 mg/dL (0.2-1.0); Urine pH 7.5 (5.0-7.0)
[2018-04-19 21:55] LABS: Urine Bacteria NONE SEEN /HPF (<20); Urine Culture Reflex Order NOT NEEDED; Urine RBC <5 /HPF (NONE SEEN)
--- NOTE | 2018-04-19 22:22 | P.CNS ---
Date of Consult: 04/19/18 Reason for Consult: EVA/ CKD Requesting Physician: Lenore Lorenzo Chief Complaint: Shortness of breath/hypotension / acute kidney injury History of Present Illness: 67 yo WF reports 3 weeks of malaise with associated twitching and poor ambulation. Yesterday, she experienced anxiety with an elevated BP so she went to the ER. In the ER, she was found to have hypotension. The patient reports one episode of vaginal bleeding in the ER. Patient is a 67-year-old female who came to the hospital with complaints of shortness of breath. At home she felt like her blood pressure was elevated and when she checked it was 170/100. However, when she arrived to the emergency room she was hypotensive with a blood pressure of 90s over 50s. Her chest x- ray did show some pulmonary edema and she was gently diuresed. However she does have some acute kidney injury and I think she may actually be over diuresed. Will go ahead and start her on some gentle hydration and recheck an echocardiogram as we do not have 1 in the chart since 2015. At that time her ejection fraction was 25-30%. She is on multiple cardiac medications including Entresto and Lasix. Will admit her to the ICU and monitor her closely. There was concern for hematuria as well. We will get a UA with microscopy. I was informed that CT stone protocol revealed a cystitis. 01:50 This 67 yrs old Female presents to ER via Ambulatory with complaints of High mars Blood Pressure. 01:50 The patient has elevated blood pressure and discovered this at home. Onset : The mars symptoms/episode began/occurred 1 day(s) ago. Modifying factors: The symptoms are aggravated by activity, The symptoms are alleviated by remaining still. Associated signs and symptoms: The patient has no apparent associated signs or symptoms. Severity of symptoms: At its worst the blood pressure was. Allergies ketamine Allergy (Intermediate, Verified 12/16/17 09:19) severe hallucinations lisinopril Allergy (Intermediate, Verified 12/16/17 09:19) kidney failure-had to go on short term dialysis Home medications list reviewed: Yes Home Medications: Citalopram [Celexa*] 40 mg PO DAILY 09/09/15 Levothyroxine [Synthroid*] 50 mcg PO [id number] 09/09/15 Trazodone HCl [Desyrel] 150 mg PO BEDTIME 11/16/15 Albuterol Sulfate [Proair Hfa] 2 puff IH Q4HP PRN 12/16/17 Allopurinol [Zyloprim*] 300 mg PO DAILY 12/16/17 Atorvastatin Calcium [Lipitor] 80 mg PO BEDTIME 12/16/17 Bifidobacterium Infantis [Align] 4 mg PO DAILY 12/16/17 Buspirone HCl [Buspar*] 7.5 mg PO BID 12/16/17 Carvedilol Phosphate [Carvedilol ER] 10 mg PO DAILY 12/16/17 Cetirizine HCl [Zyrtec] 10 mg PO DAILY 12/16/17 Docusate Sodium 100 mg PO BID 12/16/17 Fluticasone [Flonase 50MCG Nasal [place]*] 2 sprays NS DAILY 12/16/17 Glipizide [Glipizide Xl] 5 mg PO BID 12/16/17 Linaclotide [Linzess] 290 mcg PO BEDTIME 12/16/17 Magnesium Oxide [Mag 0X*] 400 mg PO DAILY 12/16/17 Montelukast [Singulair*] 10 mg PO BEDTIME 12/16/17 Pantoprazole [Protonix Tab*] 40 mg PO DAILY 12/16/17 Pregabalin [Lyrica*] 75 mg PO BID 12/16/17 Rivaroxaban [Xarelto*] 20 mg PO DAILY 12/16/17 Semaglutide [Ozempic] 0.5 mg SQ EVERY 7TH DAY 12/16/17 Spironolactone [Aldactone*] 12.5 mg PO DAILY 12/16/17 clonazePAM [Clonazepam] 0.5 mg PO TID 12/16/17 Cyclobenzaprine [Flexeril*] 5 mg PO BEDTIME 01/28/18 Ondansetron HCl [Zofran] 4 mg PO TID PRN 01/28/18 Calcitrol [Rocaltrol] 0.25 mcg PO SEECOM 04/19/18 Diclofen Sod/Kinesiology Tape [Diclo Gel 1%-Xrylix Sheet Kit] 2 gm TP QID Furosemide [Lasix*] 80 mg PO BIDL 04/19/18 Hydrocodone Bit/Acetaminophen [Hydrocodon-Acetaminophn 10-325] 1 each PO BID 02/23 Meclizine HCl 25 mg PO TID PRN 04/19/18 Metolazone [Zaroxolyn] 10 mg PO M,W,F 04/19/18 Sacubitril/Valsartan [Entresto 49 mg-51 mg Tablet] 1 each PO BID 04/19/18 - Past Medical/Surgical History Diabetic: Yes -: Diabetes mellitus type 2 [id number] -: Gout -: Depression with anxiety -: Hypothyroidism -: COPD -: Systolic congestive heart failure -: Atrial fibrillation, chronic anti coagulation -: Hyperlipidemia -: Chronic constipation -: Chronic pain -: Hysterectomy -: Rt heel -removal of bone spur -: Tubal ligation -: Tawnya-cath -: Defibrillator -: tonsillectomy Psychosocial/ Personal History: Patient is independent. - Family History Father Medical History: Heart disease, Cancer Mother Medical History: Heart disease, Diabetes - Social History Smoking Status: Never smoker Alcohol use: Yes CD- Drugs: No Caffeine use: Yes Place of Residence: Home Review of Systems 10-point ROS is otherwise unremarkable General: Weakness, Malaise Neurological: Weakness Physical Examination Temp Pulse Resp BP Pulse Ox 96.8 F 79 18 89/46 L 95 04/19/18 16:00 04/19/18 21:00 04/19/18 19:00 04/19/18 21:00 04/19/18 16:00 General: In no apparent distress, Oriented x3, Cooperative HEENT: Atraumatic Neck: Supple Respiratory: Clear to auscultation bilaterally, Normal air movement Cardiovascular: No edema Gastrointestinal: Soft and benign, Non-distended Musculoskeletal: No clubbing, No contractures Integumentary: No rashes, No cyanosis Neurological: Normal speech Laboratory Data (last 24 hrs) 04/19/18 02:35: PT 15.2 H, INR 1.30 04/19/18 02:35: WBC 6.8, Hgb 11.9 L, Hct 36.4, Plt Count 164 04/19/18 02:35: Sodium 142, Potassium 3.6, BUN 74 H, Creatinine 1.96 H, Glucose 107 H, Magnesium 2.1, Total Bilirubin 0.2, AST 16, ALT 17, Alkaline Phosphatase 125 H, Lipase 179 Imagings Data: EXAM DESCRIPTION: RAD - Chest Single View - 04/19/2018 2:17 am CLINICAL HISTORY: COUGH Chest pain. COMPARISON: Chest Single View dated 02/02/2018; Chest Single View dated 2017; Chest Pa And Lat (2 Views) dated 01/28/2018; Chest Single View dated 01/27 FINDINGS: Portable technique limits examination quality. The lungs are grossly clear. The heart is moderately prominent in size with single lead pacer/defibrillator device present. No displaced fractures.Right- sided venous catheter its tip in the SVC. EXAM DESCRIPTION: CT Abdomen and Pelvis Without Intravenous Contrast. CLINICAL HISTORY: The patient is 67 years old and is Female; ABD PAIN. COMPARISON: CT of the abdomen and pelvis January 25, 2018. TECHNIQUE: Axial computed tomography images of abdomen and pelvis without intravenous contrast. Sagittal and coronal reformatted images were created and reviewed. This CT exam was performed using one or more of the following dose reduction techniques: Automated exposure control, adjustment of the mA and/or kV according to patient size, and/or use of iterative reconstruction technique. FINDINGS: Lung bases: Scarring within the left lung base is noted. ABDOMEN: Liver: The liver is enlarged. Gallbladder and bile ducts. No calcified stones. No ductal dilation. Pancreas: Unremarkable. No ductal dilation. Spleen: Unremarkable. Adrenals: Unremarkable. No mass. Kidneys and ureters: Mild prominence of both renal collecting systems is noted, right greater than left. This is unchanged from prior exam. Stomach and bowel: The stomach is decompressed. The small bowel is relatively normal in caliber. A moderate amount of stool is present throughout the colon. There is no mucosal thickening or evidence of bowel obstruction. PELVIS: Appendix: The appendix is normal in caliber without surrounding inflammation. Bladder: The bladder is well distended. No stones. Reproductive: The patient is status post hysterectomy. ABDOMEN and PELVIS: Intraperitoneal space: Unremarkable. No free air. No significant fluid collection. Bones/joints: Mild degenerative change of the spine is present. Soft tissues: The soft tissues are normal. Vasculature: Unremarkable. No abdominal aortic aneurysm. Lymph nodes: Unremarkable. No enlarged lymph nodes. IMPRESSION: No acute findings on this noncontrasted CT of the abdomen and pelvis to explain the patient's symptoms. DIASTOLIC (NORMALS) SYSTOLIC (NORMALS) IVSd 1.0 (0.6-1.2) LA Diam 3.9 (1.9-4.0) LVEF 30-35% LVIDd 6.4 (3.5-5.7) LVIDs 5.3 (2.0-3.5) %FS 22% LVPWd 1.1 (0.6-1.2) Ao Diam 2.7 (2.0-3.7) 2 DIMENSIONAL ASSESSMENT: RIGHT ATRIUM: DILATED LEFT ATRIUM: DILATED RIGHT VENTRICLE: DEFIBRILLATOR CATHETER LEFT VENTRICLE: DILATED TRICUSPID VALVE: NORMAL MITRAL VALVE: NORMAL PULMONIC VALVE: NORMAL AORTIC VALVE: NORMAL PERICARDIAL EFFUSION: NONE AORTIC ROOT: NORMAL LEFT VENTRICULAR WALL MOTION: GLOBAL HYPOKINESIS DOPPLER/COLOR FLOW: MILD MITRAL AND TRICUSPID REGURGITATION. ESTIMATED RIGHT VENTRICULAR SYSTOLIC PRESSURE 37 mmHg (MILD PULMONARY HYPERTENSION). COMMENTS: DEPRESSED LEFT VENTRICULAR EJECTION FRACTION. DILATED LEFT ATRIUM, LEFT VENTRICLE AND RIGHT ATRIUM. PACEMAKER IN RIGHT VENTRICLE. MILD MITRAL AND TRICUSPID REGURGITATION. MILD PULMONARY HYPERTENSION. Conclusions/Impression: A/ EVA likely hypovolemia. Hypokalemia. CKD III. Hypotension. DM II with CKD. Systolic CHF, chronic. Anemia in chronic illness. P/ Continue current POC and Medications. Change IVF 1/2NS. Give potassium. Pressor therapy as needed. Restart home medications as indicated. No NSAIDs. AM labs. Daily weight. Thank you kindly for the consultation. Case discussed with Dr. Lorenzo Critical Care: Yes (Greater than 30 minutes patient care.)
[2018-04-19] MEDS ORDERED: POTASSIUM CL SA 10 MEQ TAB PO ONE (22:25)
[2018-04-19] MEDS: TRAZODONE 150 MG TAB PO SCH (22:43)
[2018-04-19] MEDS ORDERED: NACHLORIDE 0.45% 1,000 ML IV SCH (23:00)
[2018-04-20 05:23] LABS: Absolute Lymphocytes (CBC) 2.2 K/uL (0.7-4.9); Absolute Monocytes 0.4 K/uL (0.1-1.3); Basophils % 0.5 % (0-1.3); Eosinophils % 1.5 % (0-4.4); Hematocrit 33.9 % (36.0-45.0); Lymphocytes % 33.3 % (15.3-44.8); MPV 8.5 fL (7.6-11.3); Monocytes % 5.7 % (3.3-12.3); RBC Red Blood Cell Count 3.77 M/uL (3.86-4.86)
[2018-04-20 05:54] LABS: Albumin 3.2 g/dL (3.4-5.0); Bilirubin Total 0.2 mg/dL (0.2-1.0); Magnesium 2.1 mg/dL (1.8-2.4); Phosphorus 3.8 mg/dL (2.5-4.9); Potassium 3.7 mmol/L (3.5-5.1); Protein, Total 6.6 g/dL (6.4-8.2); Uric Acid 6.6 mg/dL (2.6-6.0)
[2018-04-20] MEDS: LEVOTHYROXINE SOD 0.05 MG TABLET PO SCH (05:56)
[2018-04-20] MEDS: SPIRONOLACTONE 25 MG TABLET PO SCH (07:58)
[2018-04-20] MEDS: CARVEDILOL 3.125 MG TAB PO SCH ×2 (07:59→21:00)
[2018-04-20] MEDS: SACUBITRIL/VALSARTAN 49/51 MG TAB PO SCH (07:59)
[2018-04-20 08:40] LABS: Urine Appearance CLEAR; Urine Bilirubin NEGATIVE (NEG); Urine Blood NEGATIVE (NEG); Urine Color YELLOW; Urine Glucose NEGATIVE (NEG); Urine Protein NEGATIVE (NEG); Urine Urobilinogen 0.2 mg/dL (0.2-1.0); Urine pH 7.5 (5.0-7.0)
[2018-04-20] MEDS: ASPIRIN EC 81 MG TAB PO SCH (08:45)
[2018-04-20 09:21] LABS: Urine RBC <5 /HPF (NONE SEEN)
[2018-04-20 09:22] LABS: Urine Bacteria NONE SEEN /HPF (<20); Urine Culture Reflex Order NOT NEEDED
--- NOTE | 2018-04-20 10:52 | PN ---
Ms. Sahni feels fine. She is still a little bit hypotensive. I do not think she is losing bloo d. I think she had a few days with low oral intake, took too much diuretic, and is still a little de hydrated. We will see if we can reinitiate her CHF meds, perhaps tomorrow. Her BUN and creatinine a re slightly improved today. I have encouraged her to eat and drink fully today, and we will see how she end up tomorrow. CRUZ/VALENTINO Voice ID: [id number] Report ID: [id number]
[2018-04-20] MEDS ORDERED: DOCUSATE NA 100 MG CAP PO SCH (12:55)
[2018-04-20] MEDS: MONTELUKAST 10 MG TAB PO SCH (13:30)
[2018-04-20] MEDS ORDERED: MONTELUKAST 10 MG TAB PO SCH (13:30)
[2018-04-20] MEDS: FLUTICASONE 50MCG NASAL SPRAY NAS SCH (13:31)
[2018-04-20] MEDS ORDERED: MONTELUKAST 10 MG TAB ONE (13:36)
[2018-04-20] MEDS: clonazePAM 0.5 MG TAB PO SCH ×2 (13:36→20:57)
[2018-04-20] MEDS: DOCUSATE NA 100 MG CAP PO SCH (13:37)
[2018-04-20] MEDS: CITALOPRAM 10 MG TABLET PO SCH (13:51)
[2018-04-20] MEDS: PANTOPRAZOLE 40MG TABLET PO SCH (13:51)
[2018-04-20] MEDS: ONDANSETRON 4 MG/2 ML VIAL IV PRN (14:25)
[2018-04-20] MEDS: RIVAROXABAN 20 MG TABLET PO SCH (17:34)
--- NOTE | 2018-04-20 19:55 | PN ---
Date of Progress Note: 04/20/2018 Subjective: The patient was seen and examined. She states that she is doing better today. Objective: Vital signs: Have been reviewed, blood pressure continues to be in the 90s. General exa mination: She appears in no acute distress. Lungs: Auscultation of lungs revealed bilateral equal air entry. Abdomen: Soft. Extremities: No evidence of edema was noted. Laboratory Data: Showing creatinine improving to 1.6, BUN of 67. Other electrolytes are stable. CBC showing stable hemoglobin, hematocrit, and platelet count of 142. Current Medications: Have been reviewed. She has been restarted on Entresto and also on spironolact one 12.5 mg daily. She is also on Coreg 3.125 b.i.d., buspirone 7.5 mg b.i.d. and Xarelto as well as Celexa. Impression: 1.Acute renal insufficiency secondary to possibly from Entresto use. The patient has had history of renal failure in the past related to use of GARRETT inhibitors. The patient's Entresto has been restart ed; however, her blood pressure is running on the lower side. We will go ahead and discontinue it to prevent further worsening of renal function. 2.Hypotension. The patient is on multiple other medications including spironolactone, Coreg. We wi ll continue to monitor at this time. 3.Underlying anxiety. The patient is on multiple medications including buspirone, Celexa and clonaz epam. The patient might need adjustment of her medications to avoid excessive use of benzodiazepines in the future. 4.Chronic congestive heart failure, seems compensated at this time. 5.Hypotension likely related to Entresto use and over diuresis, slowly improving. We will discontin ue Entresto as mentioned above. Plan: The patient is overall doing okay. Renal function is improving. Urine output is also improvi ng. We will discontinue Entresto and monitor her urine output closely. The plan was discussed with the patient in detail and all questions were answered. We will continue to monitor labs. Avoid hypo tension and nephrotoxins. VV/MODL Voice ID: [id number] Report ID: [id number]
[2018-04-20] MEDS: ATORVASTATIN 80 MG TAB PO SCH (20:56)
[2018-04-20] MEDS: CEFTRIAXONE/SWI 1gm 1 GM/10 ML SYR IV SCH (20:58)
[2018-04-20] MEDS: BUSPIRONE HCL 5 MG TABLET PO SCH (20:59)
[2018-04-20] MEDS: HOME MED 1 EA UNK (Linaclotide [Linzess] 290 MCG) PO SCH (21:00)
[2018-04-20] MEDS ORDERED: HOME MED 1 EA UNK PO SCH (21:00)
[2018-04-20] MEDS: TRAZODONE 150 MG TAB PO SCH (21:11)
[2018-04-21] MEDS: LEVOTHYROXINE SOD 0.05 MG TABLET PO SCH (05:25)
[2018-04-21] MEDS: CITALOPRAM 10 MG TABLET PO SCH (09:00)
[2018-04-21] MEDS ORDERED: FLUTICASONE 50MCG NASAL SPRAY NAS SCH (09:00)
[2018-04-21] MEDS: SPIRONOLACTONE 25 MG TABLET PO SCH (09:00)
[2018-04-21] MEDS: CARVEDILOL 3.125 MG TAB PO SCH (09:00)
--- NOTE | 2018-04-21 09:51 | PN ---
Ms. Sahni's blood pressure seems to be coming up. I think she could be discharged from the ICU. Most likely, we will have to slowly restart her heart failure medicines as she regains her stabilit y, but I believe she was just very severely dehydrated, over-diuresed. CRUZ/ANTHONYL Voice ID: [id number] Report ID: [id number]
[2018-04-21] MEDS: FLUTICASONE 50MCG NASAL SPRAY NAS SCH (10:06)
[2018-04-21] MEDS: CETIRIZINE HCL 5 MG TABLET PO SCH (10:06)
[2018-04-21] MEDS: clonazePAM 0.5 MG TAB PO SCH ×3 (10:07→22:01)
[2018-04-21] MEDS: PANTOPRAZOLE 40MG TABLET PO SCH (10:07)
[2018-04-21] MEDS: LACTOBACILLUS/ACIDOPHILUS TAB PO SCH (10:07)
[2018-04-21] MEDS: BUSPIRONE HCL 5 MG TABLET PO SCH ×2 (10:07→22:00)
[2018-04-21] MEDS: ASPIRIN EC 81 MG TAB PO SCH (10:07)
[2018-04-21] MEDS: DOCUSATE NA 100 MG CAP PO SCH ×2 (10:07→22:01)
[2018-04-21] MEDS ORDERED: MONTELUKAST 10 MG TAB PO SCH (12:55)
[2018-04-21] MEDS: RIVAROXABAN 20 MG TABLET PO SCH (16:33)
--- NOTE | 2018-04-21 17:46 | P.PN ---
Subjective Date of Service: 04/20/18 Chief Complaint: Shortness of breath/hypotension / acute kidney injury Patient seen and examined at bedside. No family at bedside. Chart reviewed and case discussed with nursing staff. Review of Systems 10-point ROS is otherwise unremarkable Physical Examination - Vital Signs Temperature: 98.5 F Blood Pressure: 105/51 Pulse: 81 Respirations: 14 Pulse Ox (%): 98 - Physical Exam General: Alert, In no apparent distress, Oriented x3 HEENT: Atraumatic, PERRLA, EOMI Neck: Supple, JVD not distended Respiratory: Clear to auscultation bilaterally, Normal air movement Cardiovascular: Regular rate/rhythm, Normal S1 S2 Gastrointestinal: Normal bowel sounds, No tenderness Musculoskeletal: No tenderness Integumentary: No rashes Neurological: Normal speech, Normal tone, Normal affect Lymphatics: No axilla or inguinal lymphadenopathy Assessment And Plan - Plan (1) Hematuria (2) EVA (acute kidney injury) (3) Acute on chronic systolic (congestive) heart failure (4) Atrial fibrillation (5) Diabetes (6) Dyslipidemia (7) HTN (hypertension) (8) Obesity (BMI 30-39.9) 1. Echocardiogram 2. gentle hydration at this time 3. Hold beta-evangelist and diuretics at this time due to blood pressure. 4. Cardiology and Nephrology consultation 5. Strict I's and O's 8. Daily weights 9. Education regarding diet and treatment of congestive heart failure
--- NOTE | 2018-04-21 17:48 | P.PN ---
Subjective Date of Service: 04/21/18 Chief Complaint: Shortness of breath/hypotension / acute kidney injury Subjective: No C/O voiced, Improving Patient seen and examined at bedside. No family at bedside. Chart reviewed and case discussed with nursing staff. Reports improvement. Denies any chest pain, shortness of breath, dizziness, headache. Endorses back pain, states that this is chronic. Review of Systems 10-point ROS is otherwise unremarkable Physical Examination - Vital Signs Temperature: 98.5 F Blood Pressure: 105/51 Pulse: 81 Respirations: 14 Pulse Ox (%): 98 - Physical Exam General: Alert, In no apparent distress, Oriented x3 HEENT: Atraumatic, PERRLA, EOMI Neck: Supple, JVD not distended Respiratory: Clear to auscultation bilaterally, Normal air movement Cardiovascular: Regular rate/rhythm, Normal S1 S2 Gastrointestinal: Normal bowel sounds, No tenderness Musculoskeletal: No tenderness Integumentary: No rashes Neurological: Normal speech, Normal tone, Normal affect Lymphatics: No axilla or inguinal lymphadenopathy Assessment And Plan - Plan (1) Hematuria (2) EVA (acute kidney injury) (3) Acute on chronic systolic (congestive) heart failure (4) Atrial fibrillation (5) Diabetes (6) Dyslipidemia (7) HTN (hypertension) (8) Obesity (BMI 30-39.9) 1. Echocardiogram 2. gentle hydration at this time 3. Hold beta-evangelist and diuretics at this time due to blood pressure. 4. Cardiology consulted, recommendations appreciated 5. Nephrology consulted, recommendations appreciated 5. Strict I's and O's 8. Daily weights 9. Education regarding diet and treatment of congestive heart failure DVT prophylaxis: Lovenox GI prophylaxis: None Diet: Renal Disposition: Patient overall improving. Discontinue interest 0, per nephrology. Monitor blood pressures. Since she has been stable blood pressures , will transfer to the floor.
[2018-04-21] MEDS: ONDANSETRON 4 MG/2 ML VIAL IV PRN (17:55)
[2018-04-21] MEDS: HOME MED 1 EA UNK (Linaclotide [Linzess] 290 MCG) PO SCH (21:00)
[2018-04-21] MEDS: TRAZODONE 150 MG TAB PO SCH (21:59)
[2018-04-21] MEDS: ATORVASTATIN 80 MG TAB PO SCH (22:00)
[2018-04-21] MEDS: MONTELUKAST 10 MG TAB PO SCH (22:01)
[2018-04-21] MEDS: CEFTRIAXONE/SWI 1gm 1 GM/10 ML SYR IV SCH (22:01)
--- NOTE | 2018-04-21 22:50 | P.PN ---
Date of Service: 04/21/18 Vital Signs Temp Pulse Resp BP Pulse Ox 97.8 F 80 19 116/56 L 97 04/21/18 20:00 04/21/18 20:00 04/21/18 20:00 04/21/18 20:00 04/21/18 20:00 Medications Acetaminophen (Tylenol -Extra Strength) 500 mg PO Q4HP PRN PRN Reason: [id number] Stop: 05/19/18 04:19 Aspirin (Aspirin Ec) 81 mg PO DAILY BARTOLO Stop: 05/19/18 09:01 Last Admin: 04/21/18 10:07 Dose: 81 mg Atorvastatin Calcium (Lipitor) 80 mg PO BEDTIME BARTOLO Stop: 05/20/18 21:01 Last Admin: 04/21/18 22:00 Dose: 80 mg Buspirone HCl (Buspar) 7.5 mg PO BID BARTOLO Stop: 05/20/18 21:01 Last Admin: 04/21/18 22:00 Dose: 7.5 mg Carvedilol (Coreg) 3.125 mg PO BID BARTOLO Stop: 05/19/18 21:01 Last Admin: 04/21/18 09:00 Dose: Not Given Cetirizine HCl (Zyrtec) 10 mg PO DAILY BARTOLO Stop: 05/21/18 09:01 Last Admin: 04/21/18 10:06 Dose: 10 mg Citalopram Hydrobromide (Celexa) 40 mg PO DAILY BARTOLO Stop: 05/21/18 09:01 Last Admin: 04/21/18 09:00 Dose: 40 mg Clonazepam (Klonopin) 0.5 mg PO TID BARTOLO Stop: 05/20/18 14:01 Last Admin: 04/21/18 22:01 Dose: 0.5 mg Docusate Sodium (Colace Cap) 100 mg PO BID BARTOLO Stop: 05/20/18 21:01 Last Admin: 04/21/18 22:01 Dose: 100 mg Fluticasone Propionate (Flonase 50mcg Nasal [place]) 2 sprays BRENDA DAILY BARTOLO Stop: 05/21/18 12:52 Last Admin: 04/21/18 10:06 Dose: 2 spr Home Med (Linaclotide [Linzess]) 290 mcg PO BEDTIME BARTOLO Stop: 05/20/18 21:01 Last Admin: 04/21/18 21:00 Dose: Not Given Ceftriaxone Sodium/Sodium Chloride (Rocephin 1 Gm/10 Ml Swi Ivp) 1 gm in 10 mls @ 600 mls/hr IV 2100 BARTOLO Stop: 05/19/18 21:01 Last Admin: 04/21/18 22:01 Dose: 10 mls Lactobacillus Acidoph/Bulgaricus (Lactinex) 1 tab PO DAILY BARTOLO Stop: 05/21/18 09:01 Last Admin: 04/21/18 10:07 Dose: 1 tab Levothyroxine Sodium (Synthroid) 0.05 mg PO [id number] BARTOLO Stop: 05/20/18 06:01 Last Admin: 04/21/18 05:25 Dose: 0.05 mg Magnesium Hydroxide (Milk Of Magnesia) 30 ml PO DAILYPRN PRN PRN Reason: CONSTIPATION Stop: 05/19/18 04:19 Montelukast Sodium (Singulair) 10 mg PO BEDTIME BARTOLO Stop: 05/20/18 13:31 Last Admin: 04/21/18 22:01 Dose: 10 mg Ondansetron HCl (Zofran) 4 mg IV Q6HP PRN PRN Reason: NAUSEA / VOMITING Stop: 05/19/18 04:19 Last Admin: 04/21/18 17:55 Dose: 4 mg Pantoprazole Sodium (Protonix Tab) 40 mg PO DAILY BARTOLO Stop: 05/21/18 09:01 Last Admin: 04/21/18 10:07 Dose: 40 mg Rivaroxaban (Xarelto) 20 mg PO DAILY 5 PM BARTOLO Stop: 05/19/18 17:01 Last Admin: 04/21/18 16:33 Dose: 20 mg Sodium Chloride (Normal Saline Flush) 10 ml IV BID BARTOLO Stop: 05/19/18 09:01 Last Admin: 04/21/18 22:02 Dose: 10 ml Spironolactone (Aldactone) 12.5 mg PO DAILY BARTOLO Stop: 05/20/18 09:01 Last Admin: 04/21/18 09:00 Dose: Not Given Trazodone HCl (Desyrel) 150 mg PO BEDTIME BARTOLO Stop: 05/19/18 22:31 Last Admin: 04/21/18 21:59 Dose: 150 mg Microbiology Results 04/19/18 02:15 Clean Catch Urine Girard Count - Final >100,000 CFU/ML. 04/19/18 02:15 Clean Catch Urine - Final Assessment/ Plan: Nephrology. Malaise and anxiety today of unclear etiology. CPS stable without CP or SOB. No acute events overnight. +Appetite Vitals, medications, blood work and imaging reviewed in the chart. General: In no apparent distress, Oriented x3, Cooperative HEENT: Atraumatic Neck: Supple Respiratory: Clear to auscultation bilaterally, Normal air movement Cardiovascular: No edema Gastrointestinal: Soft and benign, Non-distended Musculoskeletal: No clubbing, No contractures Integumentary: No rashes, No cyanosis Neurological: Normal speech Laboratory Data (last 24 hrs) 04/19/18 02:35: PT 15.2 H, INR 1.30 04/19/18 02:35: WBC 6.8, Hgb 11.9 L, Hct 36.4, Plt Count 164 04/19/18 02:35: Sodium 142, Potassium 3.6, BUN 74 H, Creatinine 1.96 H, Glucose 107 H, Magnesium 2.1, Total Bilirubin 0.2, AST 16, ALT 17, Alkaline Phosphatase 125 H, Lipase 179 Imagings Data: EXAM DESCRIPTION: RAD - Chest Single View - 04/19/2018 2:17 am CLINICAL HISTORY: COUGH Chest pain. COMPARISON: Chest Single View dated 02/02/2018; Chest Single View dated 2017; Chest Pa And Lat (2 Views) dated 01/28/2018; Chest Single View dated 01/27 FINDINGS: Portable technique limits examination quality. The lungs are grossly clear. The heart is moderately prominent in size with single lead pacer/defibrillator device present. No displaced fractures.Right- sided venous catheter its tip in the SVC. EXAM DESCRIPTION: CT Abdomen and Pelvis Without Intravenous Contrast. CLINICAL HISTORY: The patient is 67 years old and is Female; ABD PAIN. COMPARISON: CT of the abdomen and pelvis January 25, 2018. TECHNIQUE: Axial computed tomography images of abdomen and pelvis without intravenous contrast. Sagittal and coronal reformatted images were created and reviewed. This CT exam was performed using one or more of the following dose reduction techniques: Automated exposure control, adjustment of the mA and/or kV according to patient size, and/or use of iterative reconstruction technique. FINDINGS: Lung bases: Scarring within the left lung base is noted. ABDOMEN: Liver: The liver is enlarged. Gallbladder and bile ducts. No calcified stones. No ductal dilation. Pancreas: Unremarkable. No ductal dilation. Spleen: Unremarkable. Adrenals: Unremarkable. No mass. Kidneys and ureters: Mild prominence of both renal collecting systems is noted, right greater than left. This is unchanged from prior exam. Stomach and bowel: The stomach is decompressed. The small bowel is relatively normal in caliber. A moderate amount of stool is present throughout the colon. There is no mucosal thickening or evidence of bowel obstruction. PELVIS: Appendix: The appendix is normal in caliber without surrounding inflammation. Bladder: The bladder is well distended. No stones. Reproductive: The patient is status post hysterectomy. ABDOMEN and PELVIS: Intraperitoneal space: Unremarkable. No free air. No significant fluid collection. Bones/joints: Mild degenerative change of the spine is present. Soft tissues: The soft tissues are normal. Vasculature: Unremarkable. No abdominal aortic aneurysm. Lymph nodes: Unremarkable. No enlarged lymph nodes. IMPRESSION: No acute findings on this noncontrasted CT of the abdomen and pelvis to explain the patient's symptoms. DIASTOLIC (NORMALS) SYSTOLIC (NORMALS) IVSd 1.0 (0.6-1.2) LA Diam 3.9 (1.9-4.0) LVEF 30-35% LVIDd 6.4 (3.5-5.7) LVIDs 5.3 (2.0-3.5) %FS 22% LVPWd 1.1 (0.6-1.2) Ao Diam 2.7 (2.0-3.7) 2 DIMENSIONAL ASSESSMENT: RIGHT ATRIUM: DILATED LEFT ATRIUM: DILATED RIGHT VENTRICLE: DEFIBRILLATOR CATHETER LEFT VENTRICLE: DILATED TRICUSPID VALVE: NORMAL MITRAL VALVE: NORMAL PULMONIC VALVE: NORMAL AORTIC VALVE: NORMAL PERICARDIAL EFFUSION: NONE AORTIC ROOT: NORMAL LEFT VENTRICULAR WALL MOTION: GLOBAL HYPOKINESIS DOPPLER/COLOR FLOW: MILD MITRAL AND TRICUSPID REGURGITATION. ESTIMATED RIGHT VENTRICULAR SYSTOLIC PRESSURE 37 mmHg (MILD PULMONARY HYPERTENSION). COMMENTS: DEPRESSED LEFT VENTRICULAR EJECTION FRACTION. DILATED LEFT ATRIUM, LEFT VENTRICLE AND RIGHT ATRIUM. PACEMAKER IN RIGHT VENTRICLE. MILD MITRAL AND TRICUSPID REGURGITATION. MILD PULMONARY HYPERTENSION. Conclusions/Impression: A/ EVA likely hypovolemia. Hypokalemia. CKD III. Hypotension. DM II with CKD. Systolic CHF, chronic. Anemia in chronic illness. P/ Continue current POC and Medications. Continue IVF 1/2NS. Give potassium prn.. Pressor therapy as needed. No NSAIDs. AM labs. Daily weight. Consider PT.
[2018-04-22] MEDS: LEVOTHYROXINE SOD 0.05 MG TABLET PO SCH (05:32)
[2018-04-22 06:12] LABS: Absolute Lymphocytes (CBC) 2.2 K/uL (0.7-4.9); Absolute Monocytes 0.4 K/uL (0.1-1.3); Absolute Neutrophil 5.4 K/uL (1.8-8.0); Basophils % 0.5 % (0-1.3); Eosinophils % 1.3 % (0-4.4); Hematocrit 35.9 % (36.0-45.0); Lymphocytes % 26.9 % (15.3-44.8); MPV 8.6 fL (7.6-11.3); Monocytes % 4.5 % (3.3-12.3)
[2018-04-22 06:16] LABS: Albumin 3.7 g/dL (3.4-5.0); Bilirubin Total 0.4 mg/dL (0.2-1.0); Potassium 3.4 mmol/L (3.5-5.1); Protein, Total 7.2 g/dL (6.4-8.2); Uric Acid 6.3 mg/dL (2.6-6.0)
[2018-04-22] MEDS: SPIRONOLACTONE 25 MG TABLET PO SCH (09:00)
[2018-04-22] MEDS: CARVEDILOL 3.125 MG TAB PO SCH ×2 (09:00→21:00)
[2018-04-22] MEDS: CETIRIZINE HCL 5 MG TABLET PO SCH (09:00)
[2018-04-22] MEDS: FLUTICASONE 50MCG NASAL SPRAY NAS SCH (09:00)
[2018-04-22] MEDS: CITALOPRAM 10 MG TABLET PO SCH (10:56)
[2018-04-22] MEDS: ASPIRIN EC 81 MG TAB PO SCH (10:56)
[2018-04-22] MEDS: PANTOPRAZOLE 40MG TABLET PO SCH (10:56)
[2018-04-22] MEDS: BUSPIRONE HCL 5 MG TABLET PO SCH ×2 (10:57→21:00)
[2018-04-22] MEDS: DOCUSATE NA 100 MG CAP PO SCH ×2 (10:58→22:25)
[2018-04-22] MEDS: LACTOBACILLUS/ACIDOPHILUS TAB PO SCH (10:58)
[2018-04-22] MEDS: clonazePAM 0.5 MG TAB PO SCH ×3 (10:58→22:26)
[2018-04-22 12:14] LABS: UR MICROALBUMIN 2.5 mg/dL (< 1.9)
[2018-04-22] MEDS: ONDANSETRON 4 MG/2 ML VIAL IV PRN (12:25)
--- NOTE | 2018-04-22 13:56 | P.PN ---
Subjective Date of Service: 04/22/18 Chief Complaint: Shortness of breath/hypotension / acute kidney injury Subjective: Improving Patient seen and examined at bedside. No family at bedside. Chart reviewed and case discussed with nursing staff. Reports improvement. Denies any chest pain, shortness of breath, dizziness, headache. Endorses back pain, states that this is chronic. BP more stable this am Review of Systems 10-point ROS is otherwise unremarkable Physical Examination - Vital Signs Temperature: 98.3 F Blood Pressure: 100/60 Pulse: 63 Respirations: 17 Pulse Ox (%): 95 - Physical Exam General: Alert, In no apparent distress, Oriented x3 HEENT: Atraumatic, PERRLA, EOMI Neck: Supple, JVD not distended Respiratory: Clear to auscultation bilaterally, Normal air movement Cardiovascular: Regular rate/rhythm, Normal S1 S2 Gastrointestinal: Normal bowel sounds, No tenderness Musculoskeletal: No tenderness Integumentary: No rashes Neurological: Normal speech, Normal tone, Normal affect Lymphatics: No axilla or inguinal lymphadenopathy Assessment And Plan - Plan (1) Hematuria (2) EVA (acute kidney injury) (3) Acute on chronic systolic (congestive) heart failure (4) Atrial fibrillation (5) Diabetes (6) Dyslipidemia (7) HTN (hypertension) (8) Obesity (BMI 30-39.9) 1. Echocardiogram 2. gentle hydration at this time 3. Hold beta-evangelist and diuretics at this time due to blood pressure. 4. Cardiology consulted, recommendations appreciated 5. Nephrology consulted, recommendations appreciated 5. Strict I's and O's 8. Daily weights 9. Education regarding diet and treatment of congestive heart failure DVT prophylaxis: Lovenox GI prophylaxis: None Diet: Renal Disposition: Patient overall improving. Discontinue entrestro, per nephrology. Monitor blood pressures. blood pressures remain stable.
[2018-04-22] MEDS: RIVAROXABAN 20 MG TABLET PO SCH (17:38)
[2018-04-22] MEDS ORDERED: POTASSIUM CL SA 10 MEQ TAB PO ONE ×2 (17:42→21:03)
[2018-04-22] MEDS: HOME MED 1 EA UNK (Linaclotide [Linzess] 290 MCG) PO SCH (21:00)
--- NOTE | 2018-04-22 21:06 | P.PN ---
Date of Service: 04/22/18 Vital Signs Temp Pulse Resp BP Pulse Ox 97.1 F 74 18 113/52 L 98 04/22/18 16:00 04/22/18 16:00 04/22/18 16:00 04/22/18 16:00 04/22/18 16:00 Medications Acetaminophen (Tylenol -Extra Strength) 500 mg PO Q4HP PRN PRN Reason: ITFC-or-CMZB Stop: 05/19/18 04:19 Aspirin (Aspirin Ec) 81 mg PO DAILY BARTOLO Stop: 05/19/18 09:01 Last Admin: 04/22/18 10:56 Dose: 81 mg Atorvastatin Calcium (Lipitor) 80 mg PO BEDTIME BARTOLO Stop: 05/20/18 21:01 Last Admin: 04/21/18 22:00 Dose: 80 mg Buspirone HCl (Buspar) 7.5 mg PO BID BARTOLO Stop: 05/20/18 21:01 Last Admin: 04/22/18 10:57 Dose: 7.5 mg Carvedilol (Coreg) 3.125 mg PO BID BARTOLO Stop: 05/19/18 21:01 Last Admin: 04/22/18 09:00 Dose: Not Given Cetirizine HCl (Zyrtec) 10 mg PO DAILY BARTOLO Stop: 05/21/18 09:01 Last Admin: 04/22/18 09:00 Dose: 10 mg Citalopram Hydrobromide (Celexa) 40 mg PO DAILY BARTOLO Stop: 05/21/18 09:01 Last Admin: 04/22/18 10:56 Dose: 40 mg Clonazepam (Klonopin) 0.5 mg PO TID BARTOLO Stop: 05/20/18 14:01 Last Admin: 04/22/18 14:26 Dose: 0.5 mg Docusate Sodium (Colace Cap) 100 mg PO BID BARTOLO Stop: 05/20/18 21:01 Last Admin: 04/22/18 10:58 Dose: 100 mg Fluticasone Propionate (Flonase 50mcg Nasal [place]) 2 sprays BRENDA DAILY BARTOLO Stop: 05/21/18 12:52 Last Admin: 04/22/18 09:00 Dose: 2 spr Home Med (Linaclotide [Linzess]) 290 mcg PO BEDTIME BARTOLO Stop: 05/20/18 21:01 Last Admin: 04/21/18 21:00 Dose: Not Given Ceftriaxone Sodium/Sodium Chloride (Rocephin 1 Gm/10 Ml Swi Ivp) 1 gm in 10 mls @ 600 mls/hr IV 2100 BARTOLO Stop: 05/19/18 21:01 Last Admin: 04/21/18 22:01 Dose: 10 mls Lactobacillus Acidoph/Bulgaricus (Lactinex) 1 tab PO DAILY BARTOLO Stop: 05/21/18 09:01 Last Admin: 04/22/18 10:58 Dose: 1 tab Levothyroxine Sodium (Synthroid) 0.05 mg PO [id number] BARTOLO Stop: 05/20/18 06:01 Last Admin: 04/22/18 05:32 Dose: 0.05 mg Magnesium Hydroxide (Milk Of Magnesia) 30 ml PO DAILYPRN PRN PRN Reason: CONSTIPATION Stop: 05/19/18 04:19 Montelukast Sodium (Singulair) 10 mg PO BEDTIME BARTOLO Stop: 05/20/18 13:31 Last Admin: 04/21/18 22:01 Dose: 10 mg Ondansetron HCl (Zofran) 4 mg IV Q6HP PRN PRN Reason: NAUSEA / VOMITING Stop: 05/19/18 04:19 Last Admin: 04/22/18 12:25 Dose: 4 mg Pantoprazole Sodium (Protonix Tab) 40 mg PO DAILY BARTOLO Stop: 05/21/18 09:01 Last Admin: 04/22/18 10:56 Dose: 40 mg Potassium Chloride (Klor-Con 10 Meq Tab) 20 meq PO 1X ONE Stop: 04/22/18 21:04 Rivaroxaban (Xarelto) 20 mg PO DAILY 5 PM BARTOLO Stop: 05/19/18 17:01 Last Admin: 04/22/18 17:38 Dose: 20 mg Sodium Chloride (Normal Saline Flush) 10 ml IV BID BARTOLO Stop: 05/19/18 09:01 Last Admin: 04/22/18 09:00 Dose: 10 ml Spironolactone (Aldactone) 12.5 mg PO DAILY BARTOLO Stop: 05/20/18 09:01 Last Admin: 04/22/18 09:00 Dose: Not Given Trazodone HCl (Desyrel) 150 mg PO BEDTIME BARTOLO Stop: 05/19/18 22:31 Last Admin: 04/21/18 21:59 Dose: 150 mg Microbiology Results 02/12/19 02:15 Clean Catch Urine [place] Count - Final >100,000 CFU/ML. 04/19/18 02:15 Clean Catch Urine - Final Assessment/ Plan: Nephrology. Malaise and anxiety today of unclear etiology. CPS stable without CP or SOB. No acute events overnight. +Appetite Vitals, medications, blood work and imaging reviewed in the chart. General: In no apparent distress, Oriented x3, Cooperative HEENT: Atraumatic Neck: Supple Respiratory: Clear to auscultation bilaterally, Normal air movement Cardiovascular: No edema Gastrointestinal: Soft and benign, Non-distended Musculoskeletal: No clubbing, No contractures Integumentary: No rashes, No cyanosis Neurological: Normal speech Laboratory Data (last 24 hrs) 04/19/18 02:35: PT 15.2 H, INR 1.30 04/19/18 02:35: WBC 6.8, Hgb 11.9 L, Hct 36.4, Plt Count 164 04/19/18 02:35: Sodium 142, Potassium 3.6, BUN 74 H, Creatinine 1.96 H, Glucose 107 H, Magnesium 2.1, Total Bilirubin 0.2, AST 16, ALT 17, Alkaline Phosphatase 125 H, Lipase 179 Imagings Data: EXAM DESCRIPTION: RAD - Chest Single View - 04/19/2018 2:17 am CLINICAL HISTORY: COUGH Chest pain. COMPARISON: Chest Single View dated 02/02/2018; Chest Single View dated 2017; Chest Pa And Lat (2 Views) dated 01/28/2018; Chest Single View dated 01/27 FINDINGS: Portable technique limits examination quality. The lungs are grossly clear. The heart is moderately prominent in size with single lead pacer/defibrillator device present. No displaced fractures.Right- sided venous catheter its tip in the SVC. EXAM DESCRIPTION: CT Abdomen and Pelvis Without Intravenous Contrast. CLINICAL HISTORY: The patient is 67 years old and is Female; ABD PAIN. COMPARISON: CT of the abdomen and pelvis January 25, 2018. TECHNIQUE: Axial computed tomography images of abdomen and pelvis without intravenous contrast. Sagittal and coronal reformatted images were created and reviewed. This CT exam was performed using one or more of the following dose reduction techniques: Automated exposure control, adjustment of the mA and/or kV according to patient size, and/or use of iterative reconstruction technique. FINDINGS: Lung bases: Scarring within the left lung base is noted. ABDOMEN: Liver: The liver is enlarged. Gallbladder and bile ducts. No calcified stones. No ductal dilation. Pancreas: Unremarkable. No ductal dilation. Spleen: Unremarkable. Adrenals: Unremarkable. No mass. Kidneys and ureters: Mild prominence of both renal collecting systems is noted, right greater than left. This is unchanged from prior exam. Stomach and bowel: The stomach is decompressed. The small bowel is relatively normal in caliber. A moderate amount of stool is present throughout the colon. There is no mucosal thickening or evidence of bowel obstruction. PELVIS: Appendix: The appendix is normal in caliber without surrounding inflammation. Bladder: The bladder is well distended. No stones. Reproductive: The patient is status post hysterectomy. ABDOMEN and PELVIS: Intraperitoneal space: Unremarkable. No free air. No significant fluid collection. Bones/joints: Mild degenerative change of the spine is present. Soft tissues: The soft tissues are normal. Vasculature: Unremarkable. No abdominal aortic aneurysm. Lymph nodes: Unremarkable. No enlarged lymph nodes. IMPRESSION: No acute findings on this noncontrasted CT of the abdomen and pelvis to explain the patient's symptoms. DIASTOLIC (NORMALS) SYSTOLIC (NORMALS) IVSd 1.0 (0.6-1.2) LA Diam 3.9 (1.9-4.0) LVEF 30-35% LVIDd 6.4 (3.5-5.7) LVIDs 5.3 (2.0-3.5) %FS 22% LVPWd 1.1 (0.6-1.2) Ao Diam 2.7 (2.0-3.7) 2 DIMENSIONAL ASSESSMENT: RIGHT ATRIUM: DILATED LEFT ATRIUM: DILATED RIGHT VENTRICLE: DEFIBRILLATOR CATHETER LEFT VENTRICLE: DILATED TRICUSPID VALVE: NORMAL MITRAL VALVE: NORMAL PULMONIC VALVE: NORMAL AORTIC VALVE: NORMAL PERICARDIAL EFFUSION: NONE AORTIC ROOT: NORMAL LEFT VENTRICULAR WALL MOTION: GLOBAL HYPOKINESIS DOPPLER/COLOR FLOW: MILD MITRAL AND TRICUSPID REGURGITATION. ESTIMATED RIGHT VENTRICULAR SYSTOLIC PRESSURE 37 mmHg (MILD PULMONARY HYPERTENSION). COMMENTS: DEPRESSED LEFT VENTRICULAR EJECTION FRACTION. DILATED LEFT ATRIUM, LEFT VENTRICLE AND RIGHT ATRIUM. PACEMAKER IN RIGHT VENTRICLE. MILD MITRAL AND TRICUSPID REGURGITATION. MILD PULMONARY HYPERTENSION. Conclusions/Impression: A/ EVA likely hypovolemia. Hypokalemia. CKD III. Hypotension. DM II with CKD. Systolic CHF, chronic. Anemia in chronic illness. P/ Continue current POC and Medications. Agree with stopping IVF. Give potassium. Increase spironolactone 25mg daily due to persistent hypokalemia. No NSAIDs. AM labs. Daily weight. Consider PT.
[2018-04-22] MEDS: CEFTRIAXONE/SWI 1gm 1 GM/10 ML SYR IV SCH (22:23)
[2018-04-22] MEDS: TRAZODONE 150 MG TAB PO SCH (22:25)
[2018-04-22] MEDS: ATORVASTATIN 80 MG TAB PO SCH (22:26)
[2018-04-22] MEDS: MONTELUKAST 10 MG TAB PO SCH (22:26)
[2018-04-23] MEDS: ONDANSETRON 4 MG/2 ML VIAL IV PRN ×2 (02:52→09:52)
[2018-04-23 04:52] LABS: Potassium 3.6 mmol/L (3.5-5.1)
[2018-04-23] MEDS: LEVOTHYROXINE SOD 0.05 MG TABLET PO SCH (06:19)
[2018-04-23 08:16] VITALS: TEMP 96.9
[2018-04-23] MEDS: CETIRIZINE HCL 5 MG TABLET PO SCH (09:00)
[2018-04-23] MEDS: CARVEDILOL 3.125 MG TAB PO SCH (09:00)
[2018-04-23] MEDS ORDERED: SPIRONOLACTONE 25 MG TABLET PO SCH (09:00)
[2018-04-23] MEDS: DOCUSATE NA 100 MG CAP PO SCH (09:52)
[2018-04-23] MEDS: PANTOPRAZOLE 40MG TABLET PO SCH (09:53)
[2018-04-23] MEDS: LACTOBACILLUS/ACIDOPHILUS TAB PO SCH (09:53)
[2018-04-23] MEDS: clonazePAM 0.5 MG TAB PO SCH ×2 (09:53→14:04)
[2018-04-23] MEDS: CITALOPRAM 10 MG TABLET PO SCH (09:53)
[2018-04-23] MEDS: BUSPIRONE HCL 5 MG TABLET PO SCH (09:54)
[2018-04-23] MEDS: ASPIRIN EC 81 MG TAB PO SCH (09:54)
[2018-04-23] MEDS: FLUTICASONE 50MCG NASAL SPRAY NAS SCH (09:55)
--- NOTE | 2018-04-23 11:28 | PN ---
Date of Progress Note: 04/22/2018 Ms. Sahni is a patient with congestive heart failure, came in hypotensive and overdiuresed. She is now only on Coreg and Aldactone. Is normotensive and asymptomatic. Physical examination showed no edema, no rales. I suggested ambulation today, and if she does well this afternoon, she can go ho me, and I will see her in the office in the next week or two. JOANN/VALENTINO Voice ID: [id number] Report ID: [id number]
[2018-04-23 13:00] VITALS: BP 115/59
[2018-04-23 13:27] VITALS: O2SAT 97
--- NOTE | 2018-04-23 13:40 | PN ---
Date of Progress Note: 04/23/2018 Subjective: Ms. Sahni has been followed for CHF, over-diuresis and dehydration. She is today n ormotensive with blood pressure 116/54. She is in sinus rhythm. She remains on Coreg, Aldactone, an d Xarelto. She is in good spirits, has ambulated well without any symptoms. I am comfortable with h er going home today on Coreg, Aldactone, and Xarelto. I would continue to hold her Lasix. I will se e her in the office in the next 2-4 weeks. The case was discussed with Dr. Lorenzo. JOANN/VALENTINO Voice ID: [id number] Report ID: [id number]
--- NOTE | 2018-04-23 14:02 | P.PN ---
Date of Service: 04/23/18 seen/examined. alert/awake. feels much better. denies pain. says she will be following up with Dr. Brenner (qual field manager) once she is discharged. denies pain. no sob. bp is ok and potassium is improved. vs stable lungs cta cvs rrr abd soft/nt /nd/bs + ext: no/trace edema a/p htn/ckd?/paul: much improved. hypokalemia resolved. bp good. safe use of meds reviewed. f/u with DR. Brenner counseled. montior home bp . fall precautions. balanced diet. avoid nsaids.
--- NOTE | 2018-04-23 16:19 | P.DS ---
Admission Date: 04/19/18 Discharge Date: 04/23/18 Disposition: ROUTINE DISCHARGE Discharge Condition: GOOD Reason for Admission: Shortness of breath/hypotension / acute kidney injury Consultations: Cardiology Nephrology Brief History of Present Illness: Patient is a 67-year-old female who came to the hospital with complaints of shortness of breath. At home she felt like her blood pressure was elevated and when she checked it was 170/100. However, when she arrived to the emergency room she was hypotensive with a blood pressure of 90s over 50s. Her chest x- ray did show some pulmonary edema and she was gently diuresed. However she does have some acute kidney injury and I think she may actually be over diuresed. Will go ahead and start her on some gentle hydration and recheck an echocardiogram as we do not have 1 in the chart since 2016. At that time her ejection fraction was 25-30%. She is on multiple cardiac medications including Entresto and Lasix. Will admit her to the ICU and monitor her closely. There was concern for hematuria as well. We will get a UA with microscopy. I was informed that CT stone protocol revealed a cystitis. Will await for the official report. Hospital Course: (1) Hematuria (2) EVA (acute kidney injury) (3) Acute on chronic systolic (congestive) heart failure (4) Atrial fibrillation (5) Diabetes (6) Dyslipidemia (7) HTN (hypertension) (8) Obesity (BMI 30-39.9) Patient was admitted to the ICU due to her low blood pressure. Her blood pressure medications including diuretics and beta evangelist were held. Cardiology and nephrology were consulted. With she was given to hydration as BF to find a balance between her heart failure and her hypotension. Her entresto was discontinued by cardiology. Her spironolactone was slowly restarted. She was transferred out of ICU to the regular floor. Her blood pressures remained stable. She was cleared for discharge from nephrology and cardiology point of view. She was discharged on Xarelto, Aldactone and Coreg. Her Lasix and entresto were discontinued prior to discharge. She will be following up with cardiology in 1 week. Vital Signs/Physical Exam: Temp Pulse Resp BP Pulse Ox 96.9 F 73 18 115/59 L 96 04/23/18 12:00 04/23/18 12:00 04/23/18 12:00 04/23/18 12:00 04/23/18 12:00 General: Alert, In no apparent distress, Oriented x3 Laboratory Data at Discharge: WBC 8.0 K/uL (4.3-10.9) D 04/22/18 05:35 Hgb 11.9 g/dL (12.0-15.0) L 04/22/18 05:35 Hct 35.9 % (36.0-45.0) L 04/22/18 05:35 Plt Count 142 K/uL (152-406) L 04/22/18 05:35 PT 15.2 SECONDS (9.5-12.5) H 04/19/18 02:35 INR 1.30 04/19/18 02:35 Sodium 141 mmol/L (136-145) 04/23/18 04:10 Potassium 3.6 mmol/L (3.5-5.1) 04/23/18 04:10 BUN 37 mg/dL (7-18) H 04/23/18 04:10 Creatinine 1.19 mg/dL (0.55-1.3) 04/23/18 04:10 Glucose 104 mg/dL (74-106) 04/23/18 04:10 Uric Acid 6.3 mg/dL (2.6-6.0) H 04/22/18 05:35 Phosphorus 3.8 mg/dL (2.5-4.9) 04/20/18 05:02 Magnesium 2.1 mg/dL (1.8-2.4) 04/20/18 05:02 Total Bilirubin 0.4 mg/dL (0.2-1.0) 04/22/18 05:35 AST 11 U/L (15-37) L 04/22/18 05:35 ALT 15 U/L (12-78) 04/22/18 05:35 Alkaline Phosphatase 119 U/L (45-117) H 04/22/18 05:35 Lipase 179 U/L (73-393) 04/19/18 02:35 Home Medications: Citalopram [Celexa*] 40 mg PO DAILY 09/09/15 Levothyroxine [Synthroid*] 50 mcg PO [id number] 09/09/15 Trazodone HCl [Desyrel] 150 mg PO BEDTIME 11/16/15 Albuterol Sulfate [Proair Hfa] 2 puff IH Q4HP PRN 12/16/17 Allopurinol [Zyloprim*] 300 mg PO DAILY 12/16/17 Atorvastatin Calcium [Lipitor] 80 mg PO BEDTIME 12/16/17 Bifidobacterium Infantis [Align] 4 mg PO DAILY 12/16/17 Buspirone HCl [Buspar*] 7.5 mg PO BID 12/16/17 Carvedilol Phosphate [Carvedilol ER] 10 mg PO DAILY 12/16/17 Cetirizine HCl [Zyrtec] 10 mg PO DAILY 12/16/17 Docusate Sodium 100 mg PO BID 12/16/17 Fluticasone [Flonase 50MCG Nasal [place]*] 2 sprays NS DAILY 12/16/17 Glipizide [Glipizide Xl] 5 mg PO BID 12/16/17 Linaclotide [Linzess] 290 mcg PO BEDTIME 12/16/17 Magnesium Oxide [Mag 0X*] 400 mg PO DAILY 12/16/17 Montelukast [Singulair*] 10 mg PO BEDTIME 12/16/17 Pantoprazole [Protonix Tab*] 40 mg PO DAILY 12/16/17 Pregabalin [Lyrica*] 75 mg PO BID 12/16/17 Rivaroxaban [Xarelto*] 20 mg PO DAILY 12/16/17 Semaglutide [Ozempic] 0.5 mg SQ EVERY 7TH DAY 12/16/17 Spironolactone [Aldactone*] 12.5 mg PO DAILY 12/16/17 clonazePAM [Clonazepam] 0.5 mg PO TID 12/16/17 Cyclobenzaprine [Flexeril*] 5 mg PO BEDTIME 01/28/18 Ondansetron HCl [Zofran] 4 mg PO TID PRN 01/28/18 Calcitrol [Rocaltrol*] 0.25 mcg PO SEECOM 04/19/18 Diclofen Sod/Kinesiology Tape [Diclo Gel 1%-Xrylix Sheet Kit] 2 gm TP QID Hydrocodone Bit/Acetaminophen [Hydrocodon-Acetaminophn 10-325] 1 each PO BID 02/23 Meclizine HCl 25 mg PO TID PRN 04/19/18 Metolazone [Zaroxolyn] 10 mg PO M,W,F 04/19/18 Patient Discharge Instructions: Please follow up with the primary care physician 1 week. Please follow up with Dr. Dickerson in 1 week. Please return to the ER with worsening symptoms Diet: Renal Activity: Ad chetan Followup: Albert Brenner DO [Primary Care Provider] - Buzz Dickerson MD [ACTIVE - CAN ADMIT] - 1 Week Time spent managing pt's care (in minutes): 55
== END 2018-04-23 16:43 | disposition home or self-care (01) | DRG 291 ==
LOC: ER 01:06 → ERHOLD 04:52 → 3RD-ICU 07:44 → 2ND 04-21 17:40
PROVIDERS: ADMIT Hospitalist; ATTEND Family Medicine
DX: I13.0 Hypertensive heart and chronic kidney disease with heart failure and stage 1 through stage 4 chronic kidney disease, or unspecified chronic kidney disease (principal); I50.23 Acute on chronic systolic (congestive) heart failure; N17.9 Acute kidney failure, unspecified; Z68.41 Body mass index [BMI] 40.0-44.9, adult; I48.91 Unspecified atrial fibrillation; Z79.01 Long term (current) use of anticoagulants; E78.5 Hyperlipidemia, unspecified; E66.9 Obesity, unspecified; I95.9 Hypotension, unspecified; F41.9 Anxiety disorder, unspecified; F32.9 Major depressive disorder, single episode, unspecified; Z95.810 Presence of automatic (implantable) cardiac defibrillator; E86.1 Hypovolemia; E87.6 Hypokalemia; E11.22 Type 2 diabetes mellitus with diabetic chronic kidney disease; N18.3 Chronic kidney disease, stage 3 (moderate); Z79.84 Long term (current) use of oral hypoglycemic drugs; Z88.8 Allergy status to other drugs, medicaments and biological substances; E86.0 Dehydration; T50.995A Adverse effect of other drugs, medicaments and biological substances, initial encounter; Y92.019 Unspecified place in single-family (private) house as the place of occurrence of the external cause; D63.8 Anemia in other chronic diseases classified elsewhere; R31.9 Hematuria, unspecified
CPT/HCPCS: 36415; 71045; 74176; 76377; 80048; 80053; 80076; 81001; 82043; 82570; 83036; 83690; 83735; 83880; 84100; 84300; 84484; 84550; 85025; 85379; 85610; 86850; 86900; 86901; 87086; 87088; 93005; 93306; 96361; 96374; 96375; 99285; J0696; J2405; J7030

== ENCOUNTER 2018-05-01 22:08 | Observation (INO) | payer OTHER ==
--- OUTSIDE RECORDS SUMMARY | 2018-05-01 22:11 | XMS REPORT | Clinical Summary ---
:1950 Author Organization [facility] Address [address] [place] [address] Care Team Providers Name Role Phone Noé [...] Not on file Implants Implanted Type Area Photogravure Press Operator Device Shelf Model / Identifier Expiration Serial / Date Lot Envlp Impl Crdvrtr Dfb Antbctrl Fully Resorb Lg Aigissrx R - [id number] Cardiovascular N/A: [employer] [id number] / Implanted: 04/24/2016 (Quantity not on file) Implants N/A / Visia Af Vr Device - [id number] CARDIAC DEFIB N/A: [employer] [id number] / Implanted: Qty: 1 on 04/24/2016 by Joss Solano Jr., MD N/A [employer] / Results Not on fileafter 04/30/2017 Insurance Payer Benefit Plan / Group Subscriber ID Type Phone Address MEDICARE MEDICARE PART A AND B xxxxxxxxxx Medicare [place], [place] Advance Directives Patient has advance care planning documents on file. For more information, please contact:[place] [place] [address]
[2018-05-01] MEDS ORDERED: METHYLPREDNISOLONE 125 MG INJ ONE (22:46)
[2018-05-01] MEDS ORDERED: LEVALBUTEROL 1.25 MG/3 ML NEB ONE (22:46)
[2018-05-01] MEDS ORDERED: FUROSEMIDE 20 MG/ 2ML VIAL ONE (22:46)
[2018-05-01] MEDS ORDERED: IPRATROPIUM BROM 0.5MG/2.5ML ONE (22:46)
[2018-05-01 23:56] LABS: Absolute Lymphocytes (CBC) 1.1 K/uL (0.7-4.9); Absolute Monocytes 0.5 K/uL (0.1-1.3); Absolute Neutrophil 8.3 K/uL (1.8-8.0); Basophils % 0.5 % (0-1.3); Eosinophils % 0.7 % (0-4.4); Hematocrit 36.7 % (36.0-45.0); Lymphocytes % 10.6 % (15.3-44.8); MPV 8.4 fL (7.6-11.3); Monocytes % 5.1 % (3.3-12.3); RBC Red Blood Cell Count 4.08 M/uL (3.86-4.86)
[2018-05-02] MEDS ORDERED: ONDANSETRON 4 MG/2 ML VIAL ONE (00:04)
[2018-05-02 00:15] LABS: BUN Blood Urea Nitrogen 21 mg/dL (7-18); Bicarbonate 30 mmol/L (21-32); Glucose Level 132 mg/dL (74-106); NT PRO-BNP 4275 pg/mL (<125); Potassium 4.3 mmol/L (3.5-5.1); Sodium Level 140 mmol/L (136-145); Troponin (Emerg Dept Use Only) < 0.02 ng/mL (0.0-0.045)
--- NOTE | 2018-05-02 00:36 | EDPHYS ---
Physician Documentation [facility] Name: Pretty Sahni Age: 67 yrs Sex: Female : 1950 Arrival Date: 05/01/2018 Time: 22:10 Bed 3 Private MD: Albert Brenner; Noé Jacobs ED Physician Charly Jackson HPI: 05/01 22:28 This 67 yrs old Female presents to ER via Wheelchair with complaints of rn Breathing Difficulty. 22:28 The patient has shortness of breath at rest. Onset: The symptoms/episode began/occurred rn 2 day(s) ago. Duration: The symptoms are continuous. The patient's shortness of breath is aggravated by exertion. Associated signs and symptoms: Pertinent positives: non-productive cough, Pertinent negatives: fever, hemoptysis. Severity of symptoms: At their worst the symptoms were moderate in the emergency department the symptoms are unchanged. The patient has experienced similar episodes in the past. REports admitted 2 weeks ago, taken of her diuretic, reports 2 days of sob and cough, no fever. . Historical: - Allergies: 22:19 KETAMINE; bb 22:19 Lisinopril; bb - Home Meds: 22:19 allopurinol 300 mg Oral tab 1 tab once daily [Active]; atorvastatin 80 mg Oral tab 1 bb tab once daily [Active]; buspirone 7.5 mg Oral tab 1 tab 2 times per day [Active]; calcitriol 0.25 mcg Oral cap 1 cap [Active]; carvedilol 10mg Oral [Active]; ceterizine 10mg [Active]; citalopram 40 mg tab 1 tab once daily [Active]; clonazepam 0.5 mg Oral tab 3 times per day [Active]; clotrimazole-betamethasone 1-0.05 % Topical crea 2 times per day [Active]; ducosate 100mg [Active]; Entresto 49-51 mg Oral tab 1 tab 2 times per day [Active]; fluticasone [Active]; glipizide 5 mg Oral tr24 2 times daily [Active]; hydrocodone-acetaminophen 10-325 mg Oral tab 1 tab every 4 hours for Pain [Active]; Lasix 80 mg Oral tab 1 tab 2 times per day [Active]; levothyroxine 50 mcg tab 1 tab once daily [Active]; Linzess Oral [Active]; Lyrica 75mg Oral [Active]; magnesium oxide 400 mg Oral cap daily [Active]; meclizine 25 mg Oral chew [Active]; metolazone 10 mg Oral tab [Active]; montelukast 10 mg Oral tab 1 tab once daily [Active]; omeprazole 40 mg Oral cpDR 1 cap once daily [Active]; ondansetron Oral [Active]; ozempic [Active]; proair [Active]; spironolactone 25 mg Oral tab 1 tab once daily [Active]; trazodone 150 mg Oral tab 1 tab [Active]; Xarelto 20 mg Oral tab 1 tab once daily [Active]; - PMHx: 22:19 Anxiety; CHF; COPD; Depression; Diabetes - NIDDM; Fibromyalgia; Gout; Hypothyroidism; bb - PSHx: 22:19 Tonsillectomy; Tubal ligation; Hysterectomy; Defibrillator; bb - Immunization history:: Adult Immunizations up to date. - Social history:: Smoking status: . - Ebola Screening: : No symptoms or risks identified at this time. - Family history:: not pertinent. - Hospitalizations: : No recent hospitalization is reported. ROS: 22:28 Constitutional: Negative for fever, chills, and weight loss, Eyes: Negative for injury, rn pain, redness, and discharge, Cardiovascular: Negative for chest pain, palpitations, and edema, Respiratory: + sob and cough with pleuritic chest pain Abdomen/GI: Negative for abdominal pain, nausea, vomiting, diarrhea, and constipation, MS/Extremity: Negative for injury and deformity, Skin: Negative for injury, rash, and discoloration, Neuro: + generalized weakness Exam: 22:28 Constitutional: This is a well developed, well nourished patient who is awake, alert, rn + respiratory distress Head/Face: Normocephalic, atraumatic. Eyes: Pupils equal round and reactive to light, extra-ocular motions intact. Lids and lashes normal. Conjunctiva and sclera are non-icteric and not injected. Cornea within normal limits. Periorbital areas with no swelling, redness, or edema. ENT: dry MM, no stridor Cardiovascular: tachycardic, regular, no murmur Respiratory: + moderate tachypnea with diminished breath sounds at bases, + faint exp wheezing, no retraction Abdomen/GI: Soft, non-tender, with normal bowel sounds. No distension or tympany. No guarding or rebound. No evidence of tenderness throughout. Skin: Warm, dry MS/ Extremity: Pulses equal, no cyanosis. Neurovascular intact. Full, normal range of motion. Equal circumference. Neuro: Awake and alert, GCS 15, oriented to person, place, time, and situation. Cranial nerves II-XII grossly intact. Motor strength 5/5 in all extremities. Sensory grossly intact. Cerebellar exam normal. Normal gait. Vital Signs: 22:19 BP 140 / 112; Pulse 102; Resp 29 S; Temp 98.4(O); Pulse Ox 94% on R/A; Weight 104.33 kg bb (R); Height 5 ft. 2 in. (157.48 cm) (R); Pain 7/10; 23:27 BP 130 / 76; Pulse 92; Resp 21; Pulse Ox 100% on BiPAP; ea 05/02 00:00 BP 118 / 64; Pulse 90; Resp 20; Pulse Ox 99% on BiPAP; ea 01:30 BP 102 / 33; Pulse 91; Resp 18; Pulse Ox 100% on BiPAP; ea 02:15 BP 109 / 60; Pulse 85; Resp 19; Pulse Ox 100% on BiPAP; ea 05/01 22:19 Body Mass Index 42.07 (104.33 kg, 157.48 cm) bb MDM: 05/01 22:12 Patient medically screened. rn 05/02 00:35 Differential diagnosis: CHF exacerbation, Chronic Obstructive Pulmonary Disease rn Myocardial Infarction pneumonia, Pneumothorax pulmonary edema. Data reviewed: vital signs, nurses notes, lab test result(s), EKG, radiologic studies, plain films, and as a result, I will admit patient. Counseling: I had a detailed discussion with the patient and/or guardian regarding: the historical points, exam findings, and any diagnostic results supporting the discharge/admit diagnosis, lab results, radiology results, the need for further work-up and treatment in the hospital. Response to treatment: the patient's symptoms have markedly improved after treatment, and as a result, I will admit patient. Admission orders: after a detailed discussion of the patient's condition and case, the admit orders are written by me. 05/01 22:13 Order name: Blood Culture Adult (2) rn 05/01 22:13 Order name: BMP; Complete Time: 00:27 rn 05/01 22:13 Order name: CBC with Diff; Complete Time: 00:27 rn 05/01 22:13 Order name: NT PRO-BNP; Complete Time: 00:27 rn 05/01 22:13 Order name: Troponin (emerg Dept Use Only); Complete Time: 00:27 rn 05/01 22:14 Order name: Flu; Complete Time: 00:27 rn 05/01 22:13 Order name: BIPAP rn 05/01 22:13 Order name: XRAY CXR (1 view) rn 05/01 22:14 Order name: Procalcitonin; Complete Time: 00:35 rn 05/01 22:13 Order name: EKG; Complete Time: 22:15 rn 05/01 22:13 Order name: Cardiac monitoring; Complete Time: 22:37 rn 05/01 22:13 Order name: EKG - Nurse/Tech; Complete Time: 22:47 rn 05/01 22:13 Order name: IV Saline Lock; Complete Time: 01: rn 05/01 22:13 Order name: Labs collected and sent; Complete Time: 01:02 rn 05/01 22:13 Order name: O2 Per Protocol; Complete Time: 22:37 rn 05/01 22:13 Order name: O2 Sat Monitoring; Complete Time: 22:37 rn Administered Medications: 05/01 22:28 Drug: Xopenex (3) 1.25 mg Route: Inhalation; ea 22:38 Drug: AtroVENT Aerosol 0.5 mg Route: Inhalation; ea 05/02 00:00 Drug: Zofran 4 mg Route: IVP; Site: left antecubital; ea 00:35 Follow up: Response: No adverse reaction; Nausea is decreased ea 00:05 Drug: Lasix 20 mg Route: IVP; Site: left antecubital; ea 00:30 Follow up: Response: No adverse reaction ea 00:10 Drug: SOLU-Medrol 125 mg Route: IVP; Site: left antecubital; ea 00:30 Follow up: Response: No adverse reaction ea Disposition: 05/02/18 00:36 Hospitalization ordered by Lily Esparza for Inpatient Admission. Preliminary diagnosis are Chronic obstructive pulmonary disease with (acute) exacerbation, Pulmonary edema, Dyspnea, unspecified. - Bed requested for Telemetry/MedSurg (Inpatient). - Status is Inpatient Admission. ea - Condition is Stable. - Problem is new. - Symptoms have improved. UTI on Admission? No Signatures: Dispatcher [employer] EDMarily Bean RN Robina Livingston RN RN bb Nieto, Roman, MD MD rn Antunez, Elena, RN RN ea Corrections: (The following items were deleted from the chart) 01:55 00:36 Hospitalization Ordered by Lily Esparza MD for Inpatient Admission. Preliminary kl diagnosis is Chronic obstructive pulmonary disease with (acute) exacerbation; Pulmonary edema; Dyspnea, unspecified. Bed requested for Telemetry/MedSurg (Inpatient). Status is Inpatient Admission. Condition is Stable. Problem is new. Symptoms have improved. UTI on Admission? No. rn 02:39 01:55 05/02/2018 00:36 Hospitalization Ordered by Lily Esparza MD for Inpatient ea Admission. Preliminary diagnosis is Chronic obstructive pulmonary disease with (acute) exacerbation; Pulmonary edema; Dyspnea, unspecified. Bed requested for Telemetry/MedSurg (Inpatient). Status is Inpatient Admission. Condition is Stable. Problem is new. Symptoms have improved. UTI on Admission? No. kl
--- NOTE | 2018-05-02 00:36 | ER ---
Nurse's Notes [facility] Name: Pretty Sahni Age: 67 yrs Sex: Female : 1950 Arrival Date: 05/01/2018 Time: 22:10 Bed 3 Private MD: Albert Brenner; Noé Jacobs Diagnosis: Chronic obstructive pulmonary disease with (acute) exacerbation;Pulmonary edema;Dyspnea, unspecified Presentation: 05/01 22:15 Presenting complaint: Patient states: she is having difficulty breathing and rib pain bb since last night. Transition of care: patient was not received from another setting of care. Onset of symptoms was May 01, 2018. Risk Assessment: Do you want to hurt yourself or someone else? Patient reports no desire to harm self or others. Initial Sepsis Screen: Does the patient meet any 2 criteria? RR > 20 per min. HR > 90 bpm. Does the patient have a suspected source of infection? Yes: Other: difficulty breathing. Care prior to arrival: None. 22:15 Method Of Arrival: Wheelchair bb 22:15 Acuity: MARK 2 bb Historical: - Allergies: 22:19 KETAMINE; bb 22:19 Lisinopril; bb - Home Meds: 22:19 allopurinol 300 mg Oral tab 1 tab once daily [Active]; atorvastatin 80 mg Oral tab 1 bb tab once daily [Active]; buspirone 7.5 mg Oral tab 1 tab 2 times per day [Active]; calcitriol 0.25 mcg Oral cap 1 cap [Active]; carvedilol 10mg Oral [Active]; ceterizine 10mg [Active]; citalopram 40 mg tab 1 tab once daily [Active]; clonazepam 0.5 mg Oral tab 3 times per day [Active]; clotrimazole-betamethasone 1-0.05 % Topical crea 2 times per day [Active]; ducosate 100mg [Active]; Entresto 49-51 mg Oral tab 1 tab 2 times per day [Active]; fluticasone [Active]; glipizide 5 mg Oral tr24 2 times daily [Active]; hydrocodone-acetaminophen 10-325 mg Oral tab 1 tab every 4 hours for Pain [Active]; Lasix 80 mg Oral tab 1 tab 2 times per day [Active]; levothyroxine 50 mcg tab 1 tab once daily [Active]; Linzess Oral [Active]; Lyrica 75mg Oral [Active]; magnesium oxide 400 mg Oral cap daily [Active]; meclizine 25 mg Oral chew [Active]; metolazone 10 mg Oral tab [Active]; montelukast 10 mg Oral tab 1 tab once daily [Active]; omeprazole 40 mg Oral cpDR 1 cap once daily [Active]; ondansetron Oral [Active]; ozempic [Active]; proair [Active]; spironolactone 25 mg Oral tab 1 tab once daily [Active]; trazodone 150 mg Oral tab 1 tab [Active]; Xarelto 20 mg Oral tab 1 tab once daily [Active]; - PMHx: 22:19 Anxiety; CHF; COPD; Depression; Diabetes - NIDDM; Fibromyalgia; Gout; Hypothyroidism; bb - PSHx: 22:19 Tonsillectomy; Tubal ligation; Hysterectomy; Defibrillator; bb - Immunization history:: Adult Immunizations up to date. - Social history:: Smoking status: . - Ebola Screening: : No symptoms or risks identified at this time. - Family history:: not pertinent. - Hospitalizations: : No recent hospitalization is reported. Screenin:39 Abuse screen: Denies threats or abuse. Nutritional screening: No deficits noted. ea Tuberculosis screening: No symptoms or risk factors identified. Fall Risk IV access (20 points). Assessment: 23:20 General: Appears uncomfortable, Behavior is anxious, restless. Pain: Denies pain. ea Neuro: Level of Consciousness is awake, alert, obeys commands, Oriented to person, place, time, situation. Cardiovascular: Patient's skin is warm and dry. Respiratory: Airway is patent Respiratory effort is labored, Respiratory pattern is tachypnea Breath sounds are coarse bilaterally. GI: No signs and/or symptoms were reported involving the gastrointestinal system. : No signs and/or symptoms were reported regarding the genitourinary system. Derm: Skin is pink, warm \T\ dry. 23:25 Reassessment: Respiratory at bedside placing pt on BiPAP, pt tolerating well. ea 05/02 00:00 Reassessment: Patient and/or family updated on plan of care and expected duration. Pain ea level reassessed. Pt alert and oriented x 3, remains on BiPAP, tolerating well. No s/s of pain or discomfort noted at this time. Pt reports she is feeling a lot better. 01:25 Reassessment: Patient and/or family updated on plan of care and expected duration. Pain ea level reassessed. Pt alert and O x 3 remains on BiPAP tolerating well. Dr. Millard at bedside updating pt on plan of care. 02:34 Reassessment: Patient and/or family updated on plan of care and expected duration. Pain ea level reassessed. Report called to Elaine KLINE on fourth floor. Pt remains on BiPAP, tolerating well. Alert and oriented x 4. Pt denies pain at this time. 02:54 Reassessment: Patient and/or family updated on plan of care and expected duration. Pain ea level reassessed. Pt admitted to fourth floor via stretcher on BiPAP per tech and respiratory. Pt tolerating well. Vital Signs: 05/01 22:19 BP 140 / 112; Pulse 102; Resp 29 S; Temp 98.4(O); Pulse Ox 94% on R/A; Weight 104.33 kg bb (R); Height 5 ft. 2 in. (157.48 cm) (R); Pain 7/10; 23:27 BP 130 / 76; Pulse 92; Resp 21; Pulse Ox 100% on BiPAP; ea 05/02 00:00 BP 118 / 64; Pulse 90; Resp 20; Pulse Ox 99% on BiPAP; ea 01:30 BP 102 / 33; Pulse 91; Resp 18; Pulse Ox 100% on BiPAP; ea 02:15 BP 109 / 60; Pulse 85; Resp 19; Pulse Ox 100% on BiPAP; ea 05/01 22:19 Body Mass Index 42.07 (104.33 kg, 157.48 cm) bb ED Course: 05/01 22:10 Patient arrived in ED. es 22:11 Albert Brenner DO is Private Physician. es 22:11 Noé Jacobs MD is Private Physician. es 22:12 Charly Jackson MD is Attending Physician. rn 22:16 Triage completed. bb 22:19 Arm band placed on Patient placed in an exam room, on a stretcher, on oxygen, on bb compliance monitor, on pulse oximetry. EKG completed in triage. Results shown to MD. 22:36 Patient has correct armband on for positive identification. Placed in gown. Bed in low ea position. Call light in reach. Side rails up X2. 22:41 XRAY CXR (1 view) In Process Unspecified. EDMS 23:27 Jocelyn Velazquez, ELIUD is Primary Nurse. ea 05/02 00:04 Inserted saline lock: 20 gauge in left antecubital area, using aseptic technique. Blood la1 collected. 00:36 Lily Esparza MD is Hospitalizing Provider. rn 01:23 No provider procedures requiring assistance completed. Patient admitted, IV remains in ea place. Administered Medications: 05/01 22:28 Drug: Xopenex (3) 1.25 mg Route: Inhalation; ea 22:38 Drug: AtroVENT Aerosol 0.5 mg Route: Inhalation; ea 05/02 00:00 Drug: Zofran 4 mg Route: IVP; Site: left antecubital; ea 00:35 Follow up: Response: No adverse reaction; Nausea is decreased ea 00:05 Drug: Lasix 20 mg Route: IVP; Site: left antecubital; ea 00:30 Follow up: Response: No adverse reaction ea 00:10 Drug: SOLU-Medrol 125 mg Route: IVP; Site: left antecubital; ea 00:30 Follow up: Response: No adverse reaction ea Outcome: 00:36 Decision to Hospitalize by Provider. rn 01:25 Instructed on the need for admit, Demonstrated understanding of instructions. ea 02:37 Admitted to Med/surg accompanied by tech, room 415, with chart, Other on BiPAP Report ea called to Elaine RN 02:37 Condition: stable 02:39 Patient left the ED. ea Signatures: Dispatcher [employer] Gretta Alberts Brenda RN RN Charly Gil MD MD rn Attema, Lee, RN RN laJocelyn Linder RN RN ea Corrections: (The following items were deleted from the chart) 01: 00:00 BP 118 / 64; Pulse 90bpm; Resp 20bpm; Pulse Ox 99%; ea ea
[2018-05-02] MEDS ORDERED: ONDANSETRON 4 MG/2 ML VIAL IV PRN (02:56)
[2018-05-02] MEDS ORDERED: ALBUTEROL 2.5 MG/3 ML NEB SOL NEB PRN (02:56)
[2018-05-02] MEDS ORDERED: IPRATROPIUM BROM 0.5MG/2.5ML NEB PRN (02:56)
[2018-05-02] MEDS ORDERED: ACETAMINOPHEN 500 MG TAB PO PRN (02:56)
[2018-05-02 03:41] VITALS: BMI 40.1
[2018-05-02] MEDS ORDERED: CEFTRIAXONE/SWI 1gm 1 GM/10 ML SYR IV SCH (04:00)
[2018-05-02] MEDS ORDERED: AZITHROMYCIN 500 MG INJ IVPB ONE (04:12)
[2018-05-02 04:15] VITALS: O2SAT 98
[2018-05-02] MEDS ORDERED: AZITHROMYCIN IV 500 MG in NA CHLORIDE 0.9% 250 ML IVPB SCH (05:00)
--- NOTE | 2018-05-02 05:04 | P.HP ---
Certification for Inpatient Patient admitted to: Inpatient With expected LOS: >2 Midnights Practitioner: I am a practitioner with admitting privileges, knowledge of patient current condition, hospital course, and medical plan of care. Services: Services provided to patient in accordance with Admission requirements found in Title 42 Section 412.3 of the Code of Federal Regulations Patient History Date of Service: 05/02/18 Reason for admission: COPD exacerbation History of Present Illness: Ms Sahni is a 67 years old woman with multiple medical problems including, HTN, COPD, Chronic systolic CHF, s/p ICD placement, came to ED complaining of progressive SOB and cough since last night. She denied fever or chills. Temp at arrival was 98.4F. O2 sat 94% on RA, she was placed on BiPAP due to significant dyspnea. Influenza screening was negative. Lab work remarkable for normal WBC count, and normal procalcitonin. CXR shows bilateral worsening infiltrate consistent possible with pulmonary edema, awaiting radiology report. Allergies ketamine Allergy (Intermediate, Verified 12/16/17 09:19) severe hallucinations lisinopril Allergy (Intermediate, Verified 12/16/17 09:19) kidney failure-had to go on short term dialysis Home medications list reviewed: Yes Home Medications: Citalopram [Celexa*] 40 mg PO DAILY 09/09/15 Levothyroxine [Synthroid*] 50 mcg PO [id number] 09/09/15 Trazodone HCl [Desyrel] 150 mg PO BEDTIME 11/16/15 Albuterol Sulfate [Proair Hfa] 2 puff IH Q4HP PRN 12/16/17 Allopurinol [Zyloprim*] 300 mg PO DAILY 12/16/17 Atorvastatin Calcium [Lipitor] 80 mg PO BEDTIME 12/16/17 Bifidobacterium Infantis [Align] 4 mg PO DAILY 12/16/17 Buspirone HCl [Buspar*] 7.5 mg PO BID 12/16/17 Carvedilol Phosphate [Carvedilol ER] 10 mg PO DAILY 12/16/17 Cetirizine HCl [Zyrtec] 10 mg PO DAILY 12/16/17 Docusate Sodium 100 mg PO BID 12/16/17 Fluticasone [Flonase 50MCG Nasal [place]*] 2 sprays NS DAILY 12/16/17 Glipizide [Glipizide Xl] 5 mg PO BID 12/16/17 Linaclotide [Linzess] 290 mcg PO BEDTIME 12/16/17 Magnesium Oxide [Mag 0X*] 400 mg PO DAILY 12/16/17 Montelukast [Singulair*] 10 mg PO BEDTIME 12/16/17 Pantoprazole [Protonix Tab*] 40 mg PO DAILY 12/16/17 Pregabalin [Lyrica*] 75 mg PO BID 12/16/17 Rivaroxaban [Xarelto*] 20 mg PO DAILY 12/16/17 Semaglutide [Ozempic] 0.5 mg SQ EVERY 7TH DAY 12/16/17 Spironolactone [Aldactone*] 12.5 mg PO DAILY 12/16/17 clonazePAM [Clonazepam] 0.5 mg PO TID 12/16/17 Cyclobenzaprine [Flexeril*] 5 mg PO BEDTIME 01/28/18 Ondansetron HCl [Zofran] 4 mg PO TID PRN 01/28/18 Calcitrol [Rocaltrol*] 0.25 mcg PO SEECOM 04/19/18 Diclofen Sod/Kinesiology Tape [Diclo Gel 1%-Xrylix Sheet Kit] 2 gm TP QID Hydrocodone Bit/Acetaminophen [Hydrocodon-Acetaminophn 10-325] 1 each PO BID 02/23 Meclizine HCl 25 mg PO TID PRN 04/19/18 Metolazone [Zaroxolyn] 10 mg PO M,W,F 04/19/18 - Past Medical/Surgical History Has patient received pneumonia vaccine in the past: Yes Diabetic: Yes -: Diabetes mellitus type 2 [id number] -: Gout -: Depression with anxiety -: Hypothyroidism -: COPD -: Systolic congestive heart failure -: Atrial fibrillation, chronic anti coagulation -: Hyperlipidemia -: Chronic constipation -: Chronic pain -: Hysterectomy -: Rt heel -removal of bone spur -: Tubal ligation -: Tawnya-cath -: Defibrillator -: tonsillectomy Psychosocial/ Personal History: Patient is independent. - Family History Father -: Heart disease, Cancer Mother -: Heart disease, Diabetes - Social History Smoking Status: Former smoker Alcohol use: Yes CD- Drugs: No Caffeine use: Yes Place of Residence: Home Review of Systems 10-point ROS is otherwise unremarkable Physical Examination - Vital Signs Temperature: 99.4 F Blood Pressure: 122/81 Pulse: 83 Respirations: 24 Pulse Ox (%): 99 - Physical Exam General: Alert, In no apparent distress HEENT: Atraumatic, PERRLA, Mucous membr. moist/pink, EOMI, Sclerae nonicteric Neck: Supple, 2+ carotid pulse no bruit, No LAD, Without JVD or thyroid abnormality Respiratory: Normal air movement, Crackles/rales (bibasilar rales) Cardiovascular: Regular rate/rhythm, Normal S1 S2 Gastrointestinal: Normal bowel sounds, No tenderness Musculoskeletal: No tenderness, Swelling (bilateral LE edema 1+) Integumentary: No rashes Neurological: Normal speech, Normal strength at 5/5 x4 extr, Normal tone, Normal affect Lymphatics: No axilla or inguinal lymphadenopathy - Studies Laboratory Data (last 24 hrs) 05/01/18 23:45: WBC 10.0 D, Hgb 11.9 L, Hct 36.7, Plt Count 186 D 05/01/18 23:45: Sodium 140, Potassium 4.3, BUN 21 H, Creatinine 1.44 H, Glucose 132 H Microbiology Data (last 24 hrs): 05/01/18 22:20 Nasopharnyx Influenza Type A Antigen Screen - Final 05/01/18 22:20 Nasopharnyx Influenza Type B Antigen Screen - Final Assessment and Plan - Problems (Diagnosis) (1) COPD exacerbation Current Visit: Yes Status: Acute (2) Acute on chronic systolic (congestive) heart failure Onset Date: 01/31/18 Current Visit: No Status: Acute (3) Atrial fibrillation Onset Date: 11/25/15 Current Visit: No Status: Chronic Qualifiers: Atrial fibrillation type: chronic (4) Diabetes Onset Date: 09/10/15 Current Visit: No Status: Chronic Qualifiers: Diabetes mellitus type: type 2 Diabetes mellitus snf insulin use: without learning and development consultant use Diabetes mellitus complication status: with unspecified complications Qualified Code(s): E11.8 - Type 2 diabetes mellitus with unspecified complications (5) HTN (hypertension) Onset Date: 11/25/15 Current Visit: No Status: Chronic Qualifiers: Hypertension type: essential hypertension Qualified Code(s): I10 - Essential (primary) hypertension - Plan Will admit the patient to the hospital due to dyspnea secondary to COPD exacerbation combined with acute on chronic systolic CHF. Will order IV steroid , breathing treatments and IV lasix. Consult marketing analytics specialist. - Advance Directives Does patient have a Living Will: No Does patient have a Durable POA for Healthcare: Yes - Code Status/Comfort Care Code Status Assessed: Yes Code Status: Full Code
[2018-05-02] MEDS ORDERED: GLUCAGON 1 MG/VIAL IM PRN (05:45)
[2018-05-02] MEDS ORDERED: D50W 25 GM/50 ML SYRINGE IV PRN (05:45)
[2018-05-02] MEDS: FUROSEMIDE 40 MG/4 ML VIAL IV SCH ×2 (06:22→11:22)
[2018-05-02] MEDS: INSULIN -REGULAR HUMAN 50 UNIT/0.5 ML ML SQ SCH ×2 (07:30→11:30)
--- NOTE | 2018-05-02 08:14 | RAD REPORT ---
EXAM DESCRIPTION: RAD - Chest Single View - 05/01/2018 10:41 pm CLINICAL HISTORY: Dyspnea;Cough;COPD Chest pain. COMPARISON: Chest Single View dated 04/19/2018; Chest Single View dated 02/02/2018; Chest Single View dated 01/29/2018; Chest Pa And Lat (2 Views) dated 01/28/2018 FINDINGS: Portable technique limits examination quality. Moderate bilateral pulmonary opacities are noted, likely representing pulmonary edema or pneumonia. T he heart is moderately enlarged with a single lead pacer/defibrillator device. No displaced fractures .Right-sided venous catheter its tip in the SVC.
--- NOTE | 2018-05-02 08:43 | P.CNS ---
Date of Consult: 05/02/18 Reason for Consult: Shortness of breath Chief Complaint: CHF exacerbation History of Present Illness: Patient is a pleasant 67-year-old lady with a history of congestive heart failure admitted with acute on chronic dyspnea she was just admitted about 2 weeks ago discharge home without Lasix patient was using spinal lack became acutely short of breath. Denies any wheezing cough sputum hemoptysis complained of some chills feeling a lot better history of sleep apnea on CPAP machine BNP elevated Allergies ketamine Allergy (Intermediate, Verified 12/16/17 09:19) severe hallucinations lisinopril Allergy (Intermediate, Verified 12/16/17 09:19) kidney failure-had to go on short term dialysis Home Medications: Citalopram [Celexa*] 40 mg PO DAILY 09/09/15 Levothyroxine [Synthroid*] 50 mcg PO [id number] 09/09/15 Trazodone HCl [Desyrel] 150 mg PO BEDTIME 11/16/15 Albuterol Sulfate [Proair Hfa] 2 puff IH Q4HP PRN 12/16/17 Allopurinol [Zyloprim*] 300 mg PO DAILY 12/16/17 Atorvastatin Calcium [Lipitor] 80 mg PO BEDTIME 12/16/17 Bifidobacterium Infantis [Align] 4 mg PO DAILY 12/16/17 Buspirone HCl [Buspar*] 7.5 mg PO BID 12/16/17 Carvedilol Phosphate [Carvedilol ER] 10 mg PO DAILY 12/16/17 Cetirizine HCl [Zyrtec] 10 mg PO DAILY 12/16/17 Docusate Sodium 100 mg PO BID 12/16/17 Fluticasone [Flonase 50MCG Nasal [place]*] 2 sprays NS DAILY 12/16/17 Glipizide [Glipizide Xl] 5 mg PO BID 12/16/17 Linaclotide [Linzess] 290 mcg PO BEDTIME 12/16/17 Magnesium Oxide [Mag 0X*] 400 mg PO DAILY 12/16/17 Montelukast [Singulair*] 10 mg PO BEDTIME 12/16/17 Pantoprazole [Protonix Tab*] 40 mg PO DAILY 12/16/17 Pregabalin [Lyrica*] 75 mg PO BID 12/16/17 Rivaroxaban [Xarelto*] 20 mg PO DAILY 12/16/17 Semaglutide [Ozempic] 0.5 mg SQ EVERY 7TH DAY 12/16/17 Spironolactone [Aldactone*] 12.5 mg PO DAILY 12/16/17 clonazePAM [Clonazepam] 0.5 mg PO TID 12/16/17 Cyclobenzaprine [Flexeril*] 5 mg PO BEDTIME 01/28/18 Ondansetron HCl [Zofran] 4 mg PO TID PRN 01/28/18 Calcitrol [Rocaltrol*] 0.25 mcg PO SEECOM 04/19/18 Diclofen Sod/Kinesiology Tape [Diclo Gel 1%-Xrylix Sheet Kit] 2 gm TP QID Hydrocodone Bit/Acetaminophen [Hydrocodon-Acetaminophn 10-325] 1 each PO BID 02/23 Meclizine HCl 25 mg PO TID PRN 04/19/18 Metolazone [Zaroxolyn] 10 mg PO M,W,F 04/19/18 - Past Medical/Surgical History Diabetic: Yes -: Diabetes mellitus type 2 [id number] -: Gout -: Depression with anxiety -: Hypothyroidism -: COPD -: Systolic congestive heart failure -: Atrial fibrillation, chronic anti coagulation -: Hyperlipidemia -: Chronic constipation -: Chronic pain -: Hysterectomy -: Rt heel -removal of bone spur -: Tubal ligation -: Tawnya-cath -: Defibrillator -: tonsillectomy Psychosocial/ Personal History: Patient is independent. - Family History Father Medical History: Heart disease, Cancer Mother Medical History: Heart disease, Diabetes - Social History Smoking Status: Never smoker Alcohol use: Yes CD- Drugs: No Caffeine use: Yes Place of Residence: Home Review of Systems 10-point ROS is otherwise unremarkable General: Weakness Respiratory: Shortness of Breath Cardiovascular: Edema Physical Examination Temp Pulse Resp BP Pulse Ox 99.4 F 83 24 H 122/81 99 05/02/18 05:20 05/02/18 06:22 05/02/18 05:20 05/02/18 06:22 05/02/18 05:20 General: Alert, In no apparent distress, Oriented x3 Respiratory: Clear to auscultation bilaterally Cardiovascular: No edema, Regular rate/rhythm Gastrointestinal: Normal bowel sounds, Soft and benign Musculoskeletal: No clubbing, No swelling Laboratory Data (last 24 hrs) 05/01/18 23:45: WBC 10.0 D, Hgb 11.9 L, Hct 36.7, Plt Count 186 D 05/01/18 23:45: Sodium 140, Potassium 4.3, BUN 21 H, Creatinine 1.44 H, Glucose 132 H - Problems (1) CHF (congestive heart failure) Onset Date: 09/10/15 Current Visit: No Status: Acute Plan: Patient is 67 years of age admitted with acute on chronic dyspnea mentions a history of COPD although she has never smoked became worse overnight denies any symptoms of infection BNP is elevated chest x-ray shows some interstitial changes renal function is slightly worse labs reviewed Lester to reinstate Lasix most likely she has an exacerbation of her underlying CHF vital signs satisfactory Dc steroids urinary an evaluation for presume COPD as an outpatient with pulmonary function testing and followed up with me in 4 years patient is going to spironolactone Qualifiers: Heart failure type: systolic
--- NOTE | 2018-05-02 08:49 | EKG ---
Test Date: 2018-05-01 Test Time: 22:21:11 Government Operations Consultant: MEASUREMENT RESULTS: Intervals: Rate: 98 IA: 146 QRSD: 100 QT: 370 QTc: 472 [place]: P: 48 IA: 146 QRS: 11 T: 95 INTERPRETIVE STATEMENTS: Normal sinus rhythm Nonspecific T wave abnormality Prolonged QT Abnormal ECG Compared to ECG 04/19/2018 02:11:18 T-wave abnormality now present Prolonged QT interval now present Left ventricular hypertrophy no longer present Myocardial infarct finding no longer present Electronically Signed On 05-02-18 08:48:23 DISPLAY FABRICATION SUPERVISOR by Larry Cowan
[2018-05-02] MEDS ORDERED: HYDROCODONE/APAP 10/325 TAB PO SCH (09:00)
[2018-05-02] MEDS ORDERED: RIVAROXABAN 10 MG TABLET PO SCH (09:00)
[2018-05-02] MEDS ORDERED: ENOXAPARIN 40 MG/0.4 ML SQ SCH (09:00)
[2018-05-02] MEDS ORDERED: METHYLPREDNISOLONE 40 MG INJ IV SCH (09:00)
[2018-05-02] MEDS ORDERED: clonazePAM 0.5 MG TAB PO SCH (09:00)
[2018-05-02 13:23] VITALS: BP 108/65; TEMP 97.2
--- NOTE | 2018-05-02 18:42 | EKG ---
Test Date: 2018-05-01 Test Time: 22:16:08 Pilot Control Operator: MEASUREMENT RESULTS: Intervals: Rate: 100 WI: 154 QRSD: 94 QT: 336 QTc: 433 [place]: P: 57 WI: 154 QRS: 12 T: 119 INTERPRETIVE STATEMENTS: Normal sinus rhythm Nonspecific ST and T wave abnormality Abnormal ECG Compared to ECG 04/19/2018 02:11:18 ST (T wave) deviation now present Left ventricular hypertrophy no longer present Myocardial infarct finding no longer present Electronically Signed On 05-02-18 18:41:21 ELECTROFORMER by Larry Cowan
[2018-05-03] MEDS ORDERED: RIVAROXABAN 20 MG TABLET PO SCH (09:00)
--- NOTE | 2018-05-04 18:01 | P.SSS ---
Patient History Date of Service: 05/04/18 Reason for admission: CHF exacerbation History of Present Illness: Ms Sahni is a 67 years old woman with multiple medical problems including, HTN, COPD, Chronic systolic CHF, s/p ICD placement, came to ED complaining of chest pain in the epigastric area that was radiating under her breast along with shortness of breath. Patient stated that she woke up this morning trying catch her breath and started having some chest pain. Chest pain was sharp in nature and was radiating under her breast. Patient stated that the pain did resolve in about an hr without her taking any medication. The patient was recently discharged from the hospital for COPD exacerbation after being treated with BiPAP and steroids. Patient at that time was told to take Lasix 40 mg b.i.d. at home along with her spironolactone. Patient however does have a history of medical noncompliance along with history of taking anxiety medications more than prescribed. Patient stated that she has been taking her medications since last discharge however has not been compliant with her diet at this time. Medicine team was consulted to admit the patient to the hospital as patient was placed on BiPAP initially in the ER for hypoxia. During my evaluation of the patient in the ER patient continued to be on BiPAP however was saturating 100% thus BiPAP was weaned off. Patient continued to saturate 98% on room air. Troponin x1 was pending. Patient thus was admitted for ACS rule out an with possibility of discharge later on was the troponin x1 is negative. EKG in the ER was with no acute changes. Patient stated that she or he started feeling better than when she came in. Allergies ketamine Allergy (Intermediate, Verified 12/16/17 09:19) severe hallucinations lisinopril Allergy (Intermediate, Verified 12/16/17 09:19) kidney failure-had to go on short term dialysis Home Medications: Citalopram [Celexa*] 40 mg PO DAILY 09/09/15 Levothyroxine [Synthroid*] 50 mcg PO [id number] 09/09/15 Trazodone HCl [Desyrel] 150 mg PO BEDTIME 11/16/15 Albuterol Sulfate [Proair Hfa] 2 puff IH Q4HP PRN 12/16/17 Allopurinol [Zyloprim*] 300 mg PO DAILY 12/16/17 Atorvastatin Calcium [Lipitor] 80 mg PO BEDTIME 12/16/17 Bifidobacterium Infantis [Align] 4 mg PO DAILY 12/16/17 Buspirone HCl [Buspar*] 7.5 mg PO BID 12/16/17 Carvedilol Phosphate [Carvedilol ER] 10 mg PO DAILY 12/16/17 Cetirizine HCl [Zyrtec] 10 mg PO DAILY 12/16/17 Docusate Sodium 100 mg PO BID 12/16/17 Fluticasone [Flonase 50MCG Nasal Sneads*] 2 sprays NS DAILY 12/16/17 Glipizide [Glipizide Xl] 5 mg PO BID 12/16/17 Linaclotide [Linzess] 290 mcg PO BEDTIME 12/16/17 Magnesium Oxide [Mag 0X*] 400 mg PO DAILY 12/16/17 Montelukast [Singulair*] 10 mg PO BEDTIME 12/16/17 Pantoprazole [Protonix Tab*] 40 mg PO DAILY 12/16/17 Pregabalin [Lyrica*] 75 mg PO BID 12/16/17 Rivaroxaban [Xarelto*] 20 mg PO DAILY 12/16/17 Semaglutide [Ozempic] 0.5 mg SQ EVERY 7TH DAY 12/16/17 Spironolactone [Aldactone*] 12.5 mg PO DAILY 12/16/17 clonazePAM [Clonazepam] 0.5 mg PO TID 12/16/17 Cyclobenzaprine [Flexeril*] 5 mg PO BEDTIME 01/28/18 Ondansetron HCl [Zofran] 4 mg PO TID PRN 01/28/18 Calcitrol [Rocaltrol*] 0.25 mcg PO SEECOM 04/19/18 Diclofen Sod/Kinesiology Tape [Diclo Gel 1%-Xrylix Sheet Kit] 2 gm TP QID Hydrocodone Bit/Acetaminophen [Hydrocodon-Acetaminophn 10-325] 1 each PO BID 02/23 Meclizine HCl 25 mg PO TID PRN 04/19/18 Furosemide [Lasix] 40 mg PO BID #60 tablet 05/02/18 - Past Medical/Surgical History Has patient received pneumonia vaccine in the past: Yes Diabetic: Yes -: Diabetes mellitus type 2 [id number] -: Gout -: Depression with anxiety -: Hypothyroidism -: COPD -: Systolic congestive heart failure -: Atrial fibrillation, chronic anti coagulation -: Hyperlipidemia -: Chronic constipation -: Chronic pain -: Hysterectomy -: Rt heel -removal of bone spur -: Tubal ligation -: Tawnya-cath -: Defibrillator -: tonsillectomy Psychosocial/ Personal History: Patient is independent. - Family History Father -: Heart disease, Cancer Mother -: Heart disease, Diabetes - Social History Smoking Status: Former smoker Alcohol use: Yes CD- Drugs: No Caffeine use: Yes Place of Residence: Home Review of Systems 10-point ROS is otherwise unremarkable Physical Examination - Vital Signs Temperature: 97.2 F Blood Pressure: 108/65 Pulse: 67 Respirations: 18 Pulse Ox (%): 97 - Physical Exam General: Alert, In no apparent distress, Mild distress HEENT: Atraumatic, PERRLA, Mucous membr. moist/pink, EOMI, Sclerae nonicteric Neck: Supple, 2+ carotid pulse no bruit, No LAD, Without JVD or thyroid abnormality Respiratory: Normal air movement, Crackles/rales Cardiovascular: Regular rate/rhythm, Normal S1 S2 Gastrointestinal: Normal bowel sounds, No tenderness Musculoskeletal: No tenderness Integumentary: No rashes Neurological: Normal gait, Normal speech, Normal strength at 5/5 x4 extr, Normal tone, Normal affect Lymphatics: No axilla or inguinal lymphadenopathy - Diagnosis (Problem(s)) (1) Chest pain Onset Date: 11/18/15 Status: Acute Qualifiers: Chest pain type: unspecified Qualified Code(s): R07.9 - Chest pain, unspecified (2) CHF (congestive heart failure) Onset Date: 09/10/15 Status: Acute Plan: Chronic congestive heart failure Qualifiers: Heart failure type: systolic Heart failure chronicity: chronic Qualified Code(s): I50.22 - Chronic systolic (congestive) heart failure (3) Atrial fibrillation Onset Date: 11/25/15 Status: Chronic Qualifiers: Atrial fibrillation type: chronic (4) Diabetes Onset Date: 09/10/15 Status: Chronic Qualifiers: Diabetes mellitus type: type 2 Diabetes mellitus snf insulin use: without snf use Diabetes mellitus complication status: with unspecified complications Qualified Code(s): E11.8 - Type 2 diabetes mellitus with unspecified complications (5) Dyslipidemia Onset Date: 09/10/15 Status: Chronic (6) HTN (hypertension) Onset Date: 11/25/15 Status: Chronic Qualifiers: Hypertension type: essential hypertension Qualified Code(s): I10 - Essential (primary) hypertension (7) Obesity (BMI 30-39.9) Status: Chronic Treatment Summary: Overall during the short hospital stay patient remained stable. Patient was initially admitted to the hospital for shortness of breath and chest pain. Patient was initially placed on BiPAP in the ER however up on my examination patient was weaned off of BiPAP in the ER and was saturating well on 9 the 8% on room air. Patient was admitted to the floor for observation until her troponin came back. Troponin time once was negative. Patient had marked improvement in her symptoms was saturating well and was able to ambulate tolerate her diet. Cardiology was called who recommended the patient can then be discharged home under stable condition and Lasix can be increased to 80 mg b.i.d. Patient could follow up with cardiology in about 1-2 days post discharge. Patient was also advised to follow up with nephrology in about 1-2 days post discharge. Patient thus was discharged home under stable condition with the increased dose of Lasix and was asked to follow up with primary care provider along with cardiology the patient was educated extensively on medication compliance along with diet modification along with taking medication as prescribed by her PCP. Patient demonstrated understanding - Disposition Disposition: ROUTINE DISCHARGE Condition: GOOD Diet: Regular Activity: Ad chetan
== END 2018-05-02 14:25 | disposition home or self-care (01) ==
LOC: ER 22:08 → ERHOLD 05-02 01:31 → INTOOBSV 05-02 01:31 → 4TH 05-02 02:25
PROVIDERS: ADMIT Internal Medicine; ATTEND Internal Medicine
DX: I11.0 Hypertensive heart disease with heart failure (principal); I50.23 Acute on chronic systolic (congestive) heart failure; F41.8 Other specified anxiety disorders; E78.5 Hyperlipidemia, unspecified; E03.9 Hypothyroidism, unspecified; I48.2 Chronic atrial fibrillation; E66.9 Obesity, unspecified; Z68.41 Body mass index [BMI] 40.0-44.9, adult; E11.9 Type 2 diabetes mellitus without complications; J44.9 Chronic obstructive pulmonary disease, unspecified; Z95.810 Presence of automatic (implantable) cardiac defibrillator; Z79.01 Long term (current) use of anticoagulants
CPT/HCPCS: 93005 ×2; 87040 ×2; 85025; 80048; 36415; 82962 ×3; 84484; 84145; 83880; 87804 ×2; 71045; 94660; 96375; 96374; 99285; J1940 ×3; J0456; J0696; J2930; J2405; G0378 ×2

== ENCOUNTER 2018-05-04 10:15 | Observation (INO) | payer OTHER ==
--- OUTSIDE RECORDS SUMMARY | 2018-05-04 10:45 | XMS REPORT | Clinical Summary ---
:1950 Author Organization [facility] Address [address] [place] [address] Care Team Providers Name Role Phone Noé [...] Not on file Implants Implanted Type Area Gluing Machine Offbearer Device Shelf Model / Identifier Expiration Serial / Date Lot Envlp Impl Crdvrtr Dfb Antbctrl Fully Resorb Lg Aigissrx R - [id number] Cardiovascular N/A: [employer] [id number] / Implanted: 04/24/2016 (Quantity not on file) Implants N/A / Visia Af Vr Device - [id number] CARDIAC DEFIB N/A: [email or web address] [id number] / Implanted: Qty: 1 on 04/24/2016 by Joss Solano Jr., MD N/A [employer] / Results Not on fileafter 05/03/2017 Insurance Payer Benefit Plan / Group Subscriber ID Type Phone Address MEDICARE MEDICARE PART A AND B xxxxxxxxxx Medicare [place], [place] Advance Directives Patient has advance care planning documents on file. For more information, please contact:[place] [place] [address]
--- NOTE | 2018-05-04 11:45 | RAD REPORT ---
EXAM DESCRIPTION: Nitesh Single View05/04/2018 11:38 am CLINICAL HISTORY: Chest pain COMPARISON: May 01 FINDINGS: Minimal improvement in the pulmonary edema. The heart is mildly to moderately enlarged. Pacemaker leads are in place.
[2018-05-04 12:41] LABS: Absolute Lymphocytes (CBC) 1.3 K/uL (0.7-4.9); Absolute Monocytes 0.5 K/uL (0.1-1.3); Absolute Neutrophil 8.8 K/uL (1.8-8.0); Basophils % 0.2 % (0-1.3); Eosinophils % 1.1 % (0-4.4); Hematocrit 35.4 % (36.0-45.0); Lymphocytes % 11.9 % (15.3-44.8); MPV 8.1 fL (7.6-11.3); Monocytes % 4.4 % (3.3-12.3); RBC Red Blood Cell Count 3.88 M/uL (3.86-4.86)
[2018-05-04] MEDS ORDERED: PROMETHAZINE 25 MG/ML VIAL ONE (12:42)
[2018-05-04] MEDS ORDERED: MORPHINE 2 MG/ML SYR ONE (12:43)
[2018-05-04 12:44] LABS: Protime INR 1.31
[2018-05-04 12:59] LABS: ALT/SGPT 19 U/L (12-78); AST/SGOT 11 U/L (15-37); Albumin 3.3 g/dL (3.4-5.0); Alkaline Phosphatase 128 U/L (45-117); BUN Blood Urea Nitrogen 30 mg/dL (7-18); Bicarbonate 31 mmol/L (21-32); Bilirubin Direct 0.2 mg/dL (0-0.2); Bilirubin Total 0.7 mg/dL (0.2-1.0); Glucose Level 110 mg/dL (74-106); Magnesium 1.7 mg/dL (1.8-2.4); NT PRO-BNP 4736 pg/mL (<125); Potassium 3.5 mmol/L (3.5-5.1); Protein, Total 7.2 g/dL (6.4-8.2); Sodium Level 145 mmol/L (136-145); Troponin (Emerg Dept Use Only) < 0.02 ng/mL (0.0-0.045)
[2018-05-04] MEDS ORDERED: FUROSEMIDE 40 MG/4 ML VIAL ONE (13:43)
--- NOTE | 2018-05-04 14:52 | ER ---
Nurse's Notes [facility] Name: Pretty Sahni Age: 67 yrs Sex: Female : 1950 Arrival Date: 05/04/2018 Time: 10:18 Bed 5 Private MD: Diagnosis: Unspecified combined systolic (congestive) and diastolic (congestive) heart failure;Dyspnea Presentation: 05/04 10:24 Presenting complaint: Patient states: She was sitting in her recliner this morning when aj1 she began having chest pain and shortness of breath. Reports that she was seen here on Wednesday and diagnosed with pneumonia. Patient was 93% on room air upon EMS arrival with perioral cyanosis. Patient reports substernal chest pain that has improved some since she was placed on oxygen. Patient is tachypneic, swelling noted to bilateral lower legs. Transition of care: patient was not received from another setting of care. Onset of symptoms was May 04, 2018 at 09:15. Risk Assessment: Do you want to hurt yourself or someone else? Patient reports no desire to harm self or others. Initial Sepsis Screen: Does the patient meet any 2 criteria? RR > 20 per min. HR > 90 bpm. Yes Does the patient have a suspected source of infection? Yes: Productive cough/pneumonia. Care prior to arrival: Oxygen administered. 10:24 Method Of Arrival: EMS: [facility] aj1 10:24 Acuity: MARK 2 aj1 Triage Assessment: 10:37 General: Appears uncomfortable, Behavior is calm, cooperative, appropriate for age. aj1 Pain: Complains of pain in mid-sternal area Pain radiates to diaphragm Pain. Cardiovascular: Reports chest pain, shortness of breath. Historical: - Allergies: 10:37 KETAMINE; aj1 10:37 Lisinopril; aj1 - Home Meds: 10:37 allopurinol 300 mg Oral tab 1 tab once daily [Active]; atorvastatin 80 mg Oral tab 1 aj1 tab once daily [Active]; buspirone 7.5 mg Oral tab 1 tab 2 times per day [Active]; calcitriol 0.25 mcg Oral cap 1 cap [Active]; carvedilol 10mg Oral [Active]; ceterizine 10mg [Active]; citalopram 40 mg tab 1 tab once daily [Active]; clonazepam 0.5 mg Oral tab 3 times per day [Active]; clotrimazole-betamethasone 1-0.05 % Topical crea 2 times per day [Active]; ducosate 100mg [Active]; Entresto 49-51 mg Oral tab 1 tab 2 times per day [Active]; fluticasone [Active]; glipizide 5 mg Oral tr24 2 times daily [Active]; hydrocodone-acetaminophen 10-325 mg Oral tab 1 tab every 4 hours for Pain [Active]; Lasix 80 mg Oral tab 1 tab 2 times per day [Active]; levothyroxine 50 mcg tab 1 tab once daily [Active]; Linzess Oral [Active]; Lyrica 75mg Oral [Active]; magnesium oxide 400 mg Oral cap daily [Active]; meclizine 25 mg Oral chew [Active]; metolazone 10 mg Oral tab [Active]; montelukast 10 mg Oral tab 1 tab once daily [Active]; omeprazole 40 mg Oral cpDR 1 cap once daily [Active]; Ondansetron Oral [Active]; ozempic [Active]; proair [Active]; spironolactone 25 mg Oral tab 1 tab once daily [Active]; trazodone 150 mg Oral tab 1 tab [Active]; Xarelto 20 mg Oral tab 1 tab once daily [Active]; - PMHx: 10:37 Anxiety; CHF; COPD; Depression; Diabetes - NIDDM; Fibromyalgia; Gout; Hypothyroidism; aj1 - Immunization history:: Flu vaccine is up to date. - Social history:: Smoking status: Patient/guardian denies using tobacco. - Ebola Screening: : Patient denies travel to an Ebola-affected area in the 21 days before illness onset. Screenin:42 Abuse screen: Denies threats or abuse. Denies injuries from another. Nutritional aj1 screening: No deficits noted. Tuberculosis screening: No symptoms or risk factors identified. 16:18 Fall Risk No fall in past 12 months (0 pts). Secondary diagnosis (15 points) impaired aj1 mobility, IV access (20 points). Ambulatory Aid- None/Bed Rest/Nurse Assist (0 pts). Gait- Normal/Bed Rest/Wheelchair (0 pts) Mental Status- Oriented to own ability (0 pts). Total Sullivan Fall Scale indicates Low Risk Score (25-44 pts). As available Patient and Family Educated on Fall Prevention Program and strategies. Assessment: 10:42 General: Appears uncomfortable, Behavior is calm, cooperative, appropriate for age. aj1 Pain: Complains of pain in mid-sternal area Pain radiates to diaphragm Pain currently is 5 out of 10 on a pain scale. Quality of pain is described as aching, Pain began 1 hour ago. Neuro: Level of Consciousness is awake, alert, obeys commands, Oriented to person, place, time, situation. Cardiovascular: Reports chest pain, shortness of breath, Heart tones S1 S2 present Patient's skin is warm and dry. Edema to bilateral lower legs Rhythm is sinus tachycardia. Respiratory: Reports shortness of breath at rest Airway is patent Respiratory effort is even, labored, Respiratory pattern is regular, symmetrical, tachypnea Breath sounds with wheezes bilaterally. GI: Abdomen is round obese. : No signs and/or symptoms were reported regarding the genitourinary system. EENT: No signs and/or symptoms were reported regarding the EENT system. Derm: Skin is pale, perioral cyanosis noted. Musculoskeletal: No signs and/or symptoms reported regarding the musculoskeletal system. Circulation, motion, and sensation intact. 11:04 Reassessment: Respiratory Therapist at bedside to place patient on Bi-PAP. aj1 11:45 Reassessment: Patient appears in no apparent distress at this time. Patient and/or aj1 family updated on plan of care and expected duration. Pain level reassessed. Patient is alert, oriented x 3, equal unlabored respirations, skin warm/dry/pink. Patient states feeling better. 12:46 Reassessment: Patient and/or family updated on plan of care and expected duration. Pain aj1 level reassessed. General: Appears in no apparent distress. comfortable, Behavior is calm, cooperative, appropriate for age. Neuro: Level of Consciousness is awake, alert, obeys commands, Oriented to person, place, time, situation. Cardiovascular: Patient's skin is warm and dry. Rhythm is sinus rhythm. Respiratory: Airway is patent Respiratory effort is even, unlabored, Respiratory pattern is regular, symmetrical. Derm: Skin is pale. 13:45 Reassessment: Patient appears in no apparent distress at this time. No changes from aj1 previously documented assessment. Patient and/or family updated on plan of care and expected duration. Pain level reassessed. Patient is alert, oriented x 3, equal unlabored respirations, skin warm/dry/pink. 14:33 Reassessment: Patient appears in no apparent distress at this time. No changes from aj1 previously documented assessment. Patient and/or family updated on plan of care and expected duration. Pain level reassessed. Patient is alert, oriented x 3, equal unlabored respirations, skin warm/dry/pink. 15:30 Reassessment: Patient and/or family updated on plan of care and expected duration. Pain aj1 level reassessed. General: Appears in no apparent distress. comfortable, Behavior is calm, cooperative, appropriate for age. Pain: Denies pain. Neuro: Level of Consciousness is awake, alert, obeys commands, Oriented to person, place, time, situation. Cardiovascular: Patient's skin is warm and dry. Rhythm is sinus rhythm. Respiratory: Airway is patent Respiratory effort is even, unlabored, Respiratory pattern is regular, symmetrical. Derm: Skin is pale. Vital Signs: 10:27 BP 125 / 78; Pulse 102; Resp 27; Pulse Ox 99% on 4 lpm NC; Weight 99.79 kg (R); Height aj1 5 ft. 2 in. (157.48 cm) (R); Pain 5/10; 10:35 Temp 98.7(O); dh3 11:40 BP 116 / 75; Pulse 95; Resp 28; Pulse Ox 100% on BiPAP; aj1 12:48 BP 108 / 66; Pulse 81; Resp 23; Pulse Ox 100% on BiPAP; aj1 14:36 BP 114 / 59; Pulse 83; Resp 24; Pulse Ox 96% on BiPAP; aj1 15:43 BP 113 / 53; Pulse 80; Resp 22; Pulse Ox 100% on BiPAP; aj1 16:20 BP 108 / 55; Pulse 82; Resp 22; Pulse Ox 100% on BiPAP; aj1 10:27 Body Mass Index 40.24 (99.79 kg, 157.48 cm) aj1 ED Course: 10:18 Patient arrived in ED. em1 10:20 [facility] Rushing [facility]C [facility] snw 10:20 Juan Dior MD is Attending Physician. snw 10:23 Ani Whittington RN is Primary Nurse. aj1 10:27 Triage completed. aj1 10:37 Arm band placed on. aj1 10:42 Patient has correct armband on for positive identification. Bed in low position. Call aj1 light in reach. Side rails up X 1. monitoring and evaluation advisor on. Pulse ox on. NIBP on. 10:42 No provider procedures requiring assistance completed. Oxygen administration via nasal aj1 cannula \T\ 4L/min. 10:51 EKG done, by pharmacy tech customer service. reviewed by Rozina PIERCE. at1 11:20 Initial lab(s) drawn, by me. Missed attempt(s): 22 gauge in left antecubital area. sg Bleeding controlled, band aid applied, catheter tip intact. 11:38 X-ray completed. Portable x-ray completed in exam room. Patient tolerated procedure jb2 well. 11:39 XRAY Chest (1 view) In Process Unspecified. EDMS 14:17 BIPAP Sent. aj1 14:50 Reyna Novoa MD is Hospitalizing Provider. snw 16:18 Report given to ELIUD Verma on 2nd floor. aj1 16:20 Patient admitted, IV remains in place. aj1 Administered Medications: 12:42 Drug: Phenergan 6.25 mg Route: IVP; Site: right hand; aj1 13:15 Follow up: Response: No adverse reaction aj1 12:42 Drug: morphine 2 mg Route: IVP; Site: right hand; aj1 13:15 Follow up: Response: No adverse reaction; Pain is decreased aj1 14:16 Drug: Lasix 40 mg Route: IVP; Site: right hand; aj1 16:23 Follow up: Response: No adverse reaction aj1 Outcome: 14:51 Decision to Hospitalize by Provider. snw 16:21 Admitted to Med/surg accompanied by tech, via stretcher, with chart. aj1 16:21 Condition: stable 16:21 Discharge instructions given to patient, Instructed on the need for admit, Demonstrated understanding of instructions. 16:24 Patient left the ED. aj1 Signatures: Dispatcher [employer] EDSD Ani Whittington, RN RN aj1 Austin Arizmendi RN RN Rozina Neri, STAN HERNANDEZP-Deandre Chiang2 Cedrick Stapleton em1 Keli Flores, correctional maintenance technician EKG Tat1 Malena Lewis 3
--- NOTE | 2018-05-04 14:52 | EDPHYS ---
Physician Documentation [facility] Name: Pretty Sahni Age: 67 yrs Sex: Female : 1950 Arrival Date: 05/04/2018 Time: 10:18 Bed 5 Private MD: ED Physician Juan Dior HPI: 05/04 11:07 This 67 yrs old Female presents to ER via EMS with complaints of Chest Pain, snw Shortness Of Breath. 11:07 This 67 yrs old Female presents to ER via EMS with complaints of Chest Pain, snw Shortness Of Breath. 11:07 The patient or guardian reports chest pain that is located primarily in the substernal snw area. Onset: this morning. The pain radiates to axilla. Associated signs and symptoms: The patient has no apparent associated signs or symptoms. The chest pain is described as clutching. Duration: The patient or guardian reports multiple episodes. Severity of pain: At its worst the pain was moderate severe. EMS care prior to arrival includes: supplemental oxygen. The patient has not experienced similar symptoms in the past. The patient has been recently seen by a physician: pt has been admitted twice in the past two weeks for dyspnea. Historical: - Allergies: 10:37 KETAMINE; aj1 10:37 Lisinopril; aj1 - Home Meds: 10:37 allopurinol 300 mg Oral tab 1 tab once daily [Active]; atorvastatin 80 mg Oral tab 1 aj1 tab once daily [Active]; buspirone 7.5 mg Oral tab 1 tab 2 times per day [Active]; calcitriol 0.25 mcg Oral cap 1 cap [Active]; carvedilol 10mg Oral [Active]; ceterizine 10mg [Active]; citalopram 40 mg tab 1 tab once daily [Active]; clonazepam 0.5 mg Oral tab 3 times per day [Active]; clotrimazole-betamethasone 1-0.05 % Topical crea 2 times per day [Active]; ducosate 100mg [Active]; Entresto 49-51 mg Oral tab 1 tab 2 times per day [Active]; fluticasone [Active]; glipizide 5 mg Oral tr24 2 times daily [Active]; hydrocodone-acetaminophen 10-325 mg Oral tab 1 tab every 4 hours for Pain [Active]; Lasix 80 mg Oral tab 1 tab 2 times per day [Active]; levothyroxine 50 mcg tab 1 tab once daily [Active]; Linzess Oral [Active]; Lyrica 75mg Oral [Active]; magnesium oxide 400 mg Oral cap daily [Active]; meclizine 25 mg Oral chew [Active]; metolazone 10 mg Oral tab [Active]; montelukast 10 mg Oral tab 1 tab once daily [Active]; omeprazole 40 mg Oral cpDR 1 cap once daily [Active]; Ondansetron Oral [Active]; ozempic [Active]; proair [Active]; spironolactone 25 mg Oral tab 1 tab once daily [Active]; trazodone 150 mg Oral tab 1 tab [Active]; Xarelto 20 mg Oral tab 1 tab once daily [Active]; - PMHx: 10:37 Anxiety; CHF; COPD; Depression; Diabetes - NIDDM; Fibromyalgia; Gout; Hypothyroidism; aj1 - Immunization history:: Flu vaccine is up to date. - Social history:: Smoking status: Patient/guardian denies using tobacco. - Ebola Screening: : Patient denies travel to an Ebola-affected area in the 21 days before illness onset. ROS: 11:06 Eyes: Negative for injury, pain, redness, and discharge, ENT: Negative for injury, snw pain, and discharge, Neck: Negative for injury, pain, and swelling. 11:06 Abdomen/GI: Negative for abdominal pain, nausea, vomiting, diarrhea, and constipation, Back: Negative for injury and pain, : Negative for injury, bleeding, discharge, and swelling, MS/Extremity: Negative for injury and deformity, Skin: Negative for injury, rash, and discoloration, Neuro: Negative for headache, weakness, numbness, tingling, and seizure. 11:06 Constitutional: Positive for fatigue, malaise. 11:06 Cardiovascular: Positive for chest pain, of the mid-sternal area. 11:06 Respiratory: Positive for shortness of breath. Exam: 11:00 Head/Face: Normocephalic, atraumatic. Eyes: Pupils equal round and reactive to light, snw extra-ocular motions intact. Lids and lashes normal. Conjunctiva and sclera are non-icteric and not injected. Cornea within normal limits. Periorbital areas with no swelling, redness, or edema. 11:00 Neck: Trachea midline, no thyromegaly or masses palpated, and no cervical lymphadenopathy. Supple, full range of motion without nuchal rigidity, or vertebral point tenderness. No Meningismus. Chest/axilla: Normal chest wall appearance and motion. Nontender with no deformity. No lesions are appreciated. 11:00 Back: No spinal tenderness. No costovertebral tenderness. Full range of motion. MS/ Extremity: Pulses equal, no cyanosis. Neurovascular intact. Full, normal range of motion. Neuro: Awake and alert, GCS 15, oriented to person, place, time, and situation. Cranial nerves II-XII grossly intact. Motor strength 5/5 in all extremities. Sensory grossly intact. Cerebellar exam normal. Normal gait. 11:00 Constitutional: The patient appears alert, awake, anxious, obese, in obvious distress, uncomfortable. 11:00 ENT: Mouth: Oral mucosa: dry, Voice: is hoarse, circumoral cyanosis. 11:00 Cardiovascular: Rate: tachycardic, Rhythm: regular, Heart sounds: normal, left leg larger than right (pt had polio affecting right). 11:00 Respiratory: moderate respiratory distress is noted, Respirations: grunting, pursed lip breathing, shallow respirations, tachypnea, only speaks 3-4 word sentences. 11:00 Abdomen/GI: Inspection: obese Bowel sounds: normal, Palpation: abdomen is soft and non-tender. 11:00 Skin: Appearance: Color: dusky, Temperature: warm, flushing, not noted, diaphoresis is not appreciated. Vital Signs: 10:27 BP 125 / 78; Pulse 102; Resp 27; Pulse Ox 99% on 4 lpm NC; Weight 99.79 kg (R); Height aj1 5 ft. 2 in. (157.48 cm) (R); Pain 5/10; 10:35 Temp 98.7(O); dh3 11:40 BP 116 / 75; Pulse 95; Resp 28; Pulse Ox 100% on BiPAP; aj1 12:48 BP 108 / 66; Pulse 81; Resp 23; Pulse Ox 100% on BiPAP; aj1 14:36 BP 114 / 59; Pulse 83; Resp 24; Pulse Ox 96% on BiPAP; aj1 15:43 BP 113 / 53; Pulse 80; Resp 22; Pulse Ox 100% on BiPAP; aj1 16:20 BP 108 / 55; Pulse 82; Resp 22; Pulse Ox 100% on BiPAP; aj1 10:27 Body Mass Index 40.24 (99.79 kg, 157.48 cm) aj1 MDM: 10:20 Patient medically screened. snw 14:43 Data reviewed: vital signs, nurses notes. Counseling: I had a detailed discussion with snw the patient and/or guardian regarding: the historical points, exam findings, and any diagnostic results supporting the discharge/admit diagnosis, radiology results, the need for further work-up and treatment in the hospital. Physician consultation: Reyna Novoa MD was called at 14:49, was contacted at 14:49, regarding admission, to the telemetry unit. Dr. Novoa will consult with specialties and come to ED to see pt. 05/04 10:31 Order name: Basic Metabolic Panel; Complete Time: 13:01 05/04 10:31 Order name: CBC with Diff; Complete Time: 12:52 05/04 10:31 Order name: LFT's; Complete Time: 13:05/04 10:31 Order name: Magnesium; Complete Time: 13:05/04 10:31 Order name: NT PRO-BNP; Complete Time: 13:01 05/04 10:31 Order name: PT-INR; Complete Time: 12:52 05/04 10:31 Order name: Troponin (emerg Dept Use Only); Complete Time: 13:01 05/04 10:31 Order name: XRAY Chest (1 view); Complete Time: 11:47 05/04 10:31 Order name: Blood Culture Adult (2) 05/04 10:31 Order name: Lactate; Complete Time: 12:52 05/04 10:31 Order name: Procalcitonin; Complete Time: 13:22 05/04 10:31 Order name: BIPAP 05/04 10:31 Order name: EKG; Complete Time: 10:32 05/04 10:31 Order name: Cardiac monitoring; Complete Time: 10:40 05/04 10:31 Order name: EKG - Nurse/Tech; Complete Time: 11:05 05/04 10:31 Order name: IV Saline Lock; Complete Time: 11:52 05/04 10:31 Order name: Labs collected and sent; Complete Time: 12:18 05/04 10:31 Order name: O2 Per Protocol; Complete Time: 10:40 05/04 10:31 Order name: O2 Sat Monitoring; Complete Time: 10:40 05/04 11:35 Order name: Labs - recollect needed; Complete Time: 12:18 em1 Administered Medications: 12:42 Drug: Phenergan 6.25 mg Route: IVP; Site: right hand; aj1 13:15 Follow up: Response: No adverse reaction aj1 12:42 Drug: morphine 2 mg Route: IVP; Site: right hand; aj1 13:15 Follow up: Response: No adverse reaction; Pain is decreased aj1 14:16 Drug: Lasix 40 mg Route: IVP; Site: right hand; aj1 16:23 Follow up: Response: No adverse reaction aj1 Disposition: 05/05 06:35 Co-signature as Attending Physician, Juan Dior MD I agree with the assessment and kdr plan of care. Disposition: 05/04/18 14:51 Hospitalization ordered by Reyna Novoa for Observation. Preliminary diagnosis are Unspecified combined systolic (congestive) and diastolic (congestive) heart failure, Dyspnea. - Bed requested for Telemetry/MedSurg (observation). - Status is Observation. aj1 - Condition is Fair. - Problem is chronic. - Symptoms have worsened. UTI on Admission? No Signatures: Dispatcher [employer] EDMS Ani Whittington RN RN aj1 Juan Dior MD MD kdr Therrien, Shelly, PILL COATER-C PILL COATER-Cyndeew Cedrick Stapleton em1 Corrections: (The following items were deleted from the chart) 05/04 15:28 14:51 Hospitalization Ordered by Reyna Novoa MD for Observation. Preliminary em1 diagnosis is Unspecified combined systolic (congestive) and diastolic (congestive) heart failure; Dyspnea. Bed requested for Telemetry/MedSurg (observation). Status is Observation. Condition is Fair. Problem is chronic. Symptoms have worsened. UTI on Admission? No. snw 16:24 15:28 05/04/2018 14:51 Hospitalization Ordered by Reyna Novoa MD for Observation. aj1 Preliminary diagnosis is Unspecified combined systolic (congestive) and diastolic (congestive) heart failure; Dyspnea. Bed requested for Telemetry/MedSurg (observation). Status is Observation. Condition is Fair. Problem is chronic. Symptoms have worsened. UTI on Admission? No. em1
[2018-05-04 16:48] VITALS: O2SAT 100
[2018-05-04 16:49] VITALS: BP 108/55
[2018-05-04] MEDS ORDERED: FUROSEMIDE 40 MG/4 ML VIAL IV SCH (17:00)
[2018-05-04] MEDS ORDERED: ENOXAPARIN 40 MG/0.4 ML SQ SCH (17:00)
[2018-05-04 18:10] VITALS: BMI 41.9
[2018-05-04 18:11] VITALS: TEMP 98.5
== END 2018-05-04 18:14 | disposition home or self-care (01) ==
LOC: ER 10:15 → ERHOLD 15:08 → 2ND 15:53
PROVIDERS: ADMIT Family Medicine; ATTEND Family Medicine
DX: R07.9 Chest pain, unspecified (principal); R06.02 Shortness of breath; I50.40 Unspecified combined systolic (congestive) and diastolic (congestive) heart failure; E03.9 Hypothyroidism, unspecified; F41.9 Anxiety disorder, unspecified; E11.9 Type 2 diabetes mellitus without complications
CPT/HCPCS: 93005; 87040 ×2; 85025; 80048; 36415; 83735; 85610; 80076; 83605; 84484; 84145; 83880; 71045; 94660; 96375; 96374; 99285; J2550; J1940; J2270; G0378 ×2